=== PATIENT | male | born 1980 | race Two or more races ===

== ENCOUNTER 2018-06-02 13:46 | Emergency (ER) | payer SELFPAY ==
[2018-06-02] MEDS ORDERED: Ibuprofen TAB* 600 MG PO ONE (15:59)
[2018-06-02 16:11] VITALS: BP 140/92
--- NOTE | 2018-06-02 16:28 | ED ---
Upper Extremity Pain - HPI Summary HPI Summary: Patient is a 38-year-old male presenting to the ED after tripping and falling on his stairs at home and injuring his right elbow and the lateral part of his right thigh. He endorses some ecchymosis, but has full range of motion to the elbow into the leg. He also endorses some diffuse low back pain from picking up books yesterday which has improved since he has arrived in the ED. He declines x-ray on arrival. He denies any numbness or tingling. Denies any temperature changes. Good cap refill. He denies any other injuries and denies hitting his head. He takes no medications and has not taken any medications for improvement. - History of Current Complaint Chief Complaint: EDExtremityUpper Stated Complaint: RT ARM INJURY Time Seen by Provider: 06/02/18 14:11 Hx Obtained From: Patient Onset/Duration: Started Hours Ago Timing: Constant Severity Initially: Moderate Severity Currently: Mild Character: Aching Aggravating Factor(s): Movement, Lifting, Flexion, Extension Alleviating Factor(s): Rest, Ice Associated Signs & Symptoms: Positive: Bruising Related History: Dominant Hand Right - Risk Factors Non-Orthopedic Risk Factor: Negative DVT Risk Factors: Negative Septic Arthritis Risk Factor: Negative Compartment Syndrome Risk Factors: Pain - Allergies/Home Medications Allergies/Adverse Reactions: Allergies Allergy/AdvReac Type Severity Reaction Status Date / Time No Known Allergies Allergy Verified 06/02/18 13:55 PMH/Surg Hx/FS Hx/Imm Hx Previously Healthy: Yes Musculoskeletal History: Reports: Hx Back Problems Psychiatric History: Reports: Hx Depression, Hx Inpatient Treatment, Hx Community Mental Health Tx, Hx of Violent Episodes Against Others Denies: Hx Eating Disorder - Immunization History Hx Pertussis Vaccination: No Immunizations Up to Date: Yes Infectious Disease History: No Infectious Disease History: Denies: Traveled Outside the [place] in Last 30 Days - Social History Occupation: Unemployed Lives: Alone Alcohol Use: None Hx Substance Use: No Substance Use Type: Reports: None Hx Tobacco Use: No Smoking Status (MU): Never Smoked Tobacco Review of Systems Constitutional: Negative Negative: Fever, Chills, Fatigue, Skin Diaphoresis Negative: Palpitations, Chest Pain Negative: Shortness Of Breath, Cough Genitourinary: Negative Positive: no symptoms reported, see HPI Positive: Arthralgia - right elbow. Negative: Myalgia Positive: Bruising - contusion and abrasion to the R elbow and R thigh Neurological: Negative All Other Systems Reviewed And Are Negative: Yes Physical Exam Triage Information Reviewed: Yes Vital Signs On Initial Exam: Initial Vitals Temp Pulse Resp BP Pulse Ox 97.8 F 83 16 149/100 97 06/02/18 13:55 06/02/18 13:55 06/02/18 13:55 06/02/18 13:55 06/02/18 13:55 Vital Signs Reviewed: Yes Appearance: Positive: Well-Appearing, Well-Nourished Skin: Positive: Warm, Skin Color Reflects Adequate Perfusion, Other - right elbow contusion and R thigh contusion Head/Face: Positive: Normal Head/Face Inspection Eyes: Positive: MARION, Conjunctiva Clear Neck: Positive: Supple, No Lymphadenopathy Respiratory/Lung Sounds: Positive: Clear to Auscultation, Breath Sounds Present Cardiovascular: Positive: RRR, Pulses are Symmetrical in both Upper and Lower Extremities Musculoskeletal: Positive: Pain @ - right elbow Psychiatric: Positive: Normal, Affect/Mood Appropriate AVPU Assessment: Alert Diagnostics - Vital Signs Vital Signs Temp Pulse Resp BP Pulse Ox 06/02/18 16:11 97.8 F 82 16 140/92 97 06/02/18 13:55 97.8 F 83 16 149/100 97 - Laboratory Lab Statement: Any lab studies that have been ordered have been reviewed, and results considered in the medical decision making process. Course/Dx - Course Course Of Treatment: During the course of treatment, the patient is evaluated for right elbow contusion and abrasion as well as right thigh contusion. He declines an x-ray and states it is not fractured as he has full mobility. On physical examination, he is able to flex and extend as well as supinate and pronate at the elbow with minimal pain. He also has an abrasion to the right elbow which is clean and superficial. Ecchymosis noted to the right lateral portion of the thigh. He looks otherwise well. Ibuprofen 600mg given and also sent to pharmacy. He will be diagnosed with contusion. - Diagnoses Provider Diagnoses: Elbow contusion, Thigh contusion Discharge - Sign-Out/Discharge Documenting (check all that apply): Patient Departure - Discharge Plan Condition: Stable Disposition: HOME Prescriptions: Ibuprofen 600 mg PO TID PRN #30 tablet MDD 3 PRN Reason: Pain Patient Education Materials: Contusion in Adults (ED) Referrals: Jonathan Mccabe MD [Primary Care Provider] - Additional Instructions: Ice to the area x 24 hours, then heat to the area after 24 hours Ibuprofen 600mg three times daily You have a contusion to your elbow with an abrasion as well as a contusion on your leg both from the fall you had If symptoms worsen, you may return to the ED - Billing Disposition and Condition Condition: STABLE Disposition: Home
== END 2018-06-02 16:11 | disposition home or self-care (01) ==
LOC: ED 13:46
DX: S50.01XA Contusion of right elbow, initial encounter (principal); S70.11XA Contusion of right thigh, initial encounter; W10.9XXA Fall (on) (from) unspecified stairs and steps, initial encounter; Y92.009 Unspecified place in unspecified non-institutional (private) residence as the place of occurrence of the external cause
CPT/HCPCS: 99282; A9270-GY

== ENCOUNTER → 2018-06-25 11:30 | Emergency (ER) | payer SELFPAY ==
--- OUTSIDE RECORDS SUMMARY | 2018-06-25 11:43 | XMS REPORT ---
:1980 External Reference #:[id number] Author Organization [facility] Address [address] [place] [address] [place] [address] Phone [phone] Care Team Providers Name Role Phone Jonathan Mccabe III, MD Primary Care Physician Unavailable Payers Type Date Identification Numbers Payment Provider Subscriber Medicare Primary Policy Number: [id number] Medicare Martín Wu PayID: [id number] [facility] [address] [place] [address] Problems Date Description Provider Status Onset: 10/08/2015 Bipolar I disorder Cristo Thao M.D. Active Family History Date Family Member(s) Problem(s) Comments Father No Current Problems Mother Depression Siblings 1 Social History Type Date Description Comments Marital Status Single Occupation Unemployed Cigarette Use Never Smoked Cigarettes Smoking Patient has never smoked Recreational Drug Use Never Used Drugs Exercise Type/Frequency Exercises regularly Last [place] 10+ years ago Sexual Hx text Heterosexual Allergies, Adverse Reactions, Alerts Date Description Reaction Status Severity Comments 10/08/2015 NKDA active Medications Medication Date Status Form Strength Qnty SIG Indications Ordering Provider Aspirin Ec / Active Tablets DR 325mg prn Unknown 0000 Geodon 01/06/ Hx Capsules 40mg 60caps 1 by Cristo Thao, 07/28/ twice a M.D. 2015 day Abilify / Hx Tablets 5mg 1 by [email or web address].[email or web address] Unknown 0000 - mouth 07/12/ every day 2016 Oxcarbazepine / Hx Tablets 300mg 2 by F31.9 Unknown 0000 - mouth 07/28/ 2015 day. Divalproex / Hx Tablets ER 250mg Take Unknown Sodium ER 0000 - 24HR Three 11/12/ Tablets 2018 By Mouth AT Bedtime Ziprasidone HCL / Hx Capsules 80mg Tiago Hillman, 0000 - 2015 Ziprasidone HCL 00/ Hx Capsules 80mg 2 tabs Tiago Hillman, 0000 - daily 2016 Vraylar 00/ Hx Capsules 4.5mg take 1 Unknown 0000 - pill 2017 night Rexulti 00/ Hx Tablets 1mg one tab Unknown 0000 - once a 2017 Influenza,Unspe / Hx Injection Unknown cified 0000 - 2015 Medications Administered in Office Medication Date Status Form Strength Qnty SIG Indications Ordering Provider PPD Administered Injection Nurse Visit 7 C Immunizations CPT Code Status Date Vaccine Reaction Lot # [id number] Given 07/13/2017 Influenza Virus Vaccine, No immediate reaction [id number] Quadrivalent, Split, noted. Preservative Free [id number] Given 08/13/2012 Tetanus And Diptheria (Td) For Adult Use Preservative Free Vital Signs Date Vital Result Comment 05/29/2018 Height 65 inches 5'5" Weight 167.00 lb Heart Rate 85 /min BP Systolic Sitting 120 mmHg BP Diastolic Sitting 78 mmHg O2 % BldC Oximetry 97 % BMI (Body Mass Index) 27.8 kg/m2 11/12/2017 Weight 161.00 lb Heart Rate 67 /min BP Systolic Sitting 122 mmHg BP Diastolic Sitting 72 mmHg O2 % BldC Oximetry 98 % 07/13/2017 Height 65 inches 5'5" Weight 153.00 lb Heart Rate 63 /min BP Systolic Sitting 120 mmHg BP Diastolic Sitting 80 mmHg Body Temperature 97.9 F O2 % BldC Oximetry 98 % BMI (Body Mass Index) 25.5 kg/m2 01/23/2017 Weight 146.38 lb Heart Rate 69 /min BP Systolic 126 mmHg BP Diastolic 88 mmHg Body Temperature 97.9 F O2 % BldC Oximetry 98 % 12/28/2016 Weight 145.00 lb Heart Rate 76 /min BP Systolic Sitting 114 mmHg BP Diastolic Sitting 60 mmHg Respiratory Rate 16 /min O2 % BldC Oximetry 99 % 07/28/2016 Weight 149.00 lb Heart Rate 84 /min BP Systolic Sitting 116 mmHg BP Diastolic Sitting 62 mmHg Body Temperature 97.7 F O2 % BldC Oximetry 99 % 07/28/2016 Weight 141.00 lb 01/07/2016 Weight 148.00 lb Heart Rate 71 /min BP Systolic Sitting 118 mmHg BP Diastolic Sitting 76 mmHg Body Temperature 98.3 F 10/08/2015 Height 65 inches 5'5" Weight 152.00 lb Heart Rate 89 /min BP Systolic Sitting 127 mmHg BP Diastolic Sitting 77 mmHg Respiratory Rate 16 /min Body Temperature 98.4 F Pain Level 7 O2 % BldC Oximetry 98 % BMI (Body Mass Index) 25.3 kg/m2 Results Test Date Test Result H/L Range Note Quantiferon Gold TB 04/04/2017 M tuberculosis by Negative Negative 1 Quantiferon TB Ag minus Nil Result 0.26 IU/mL TB Mitogen minus Nil Result > 10.00 IU/mL TB Nil Result 0.04 IU/mL 2 Lipid Profile (Trig/Chol/HDL) 01/24/2017 Triglycerides 65 mg/dL 3 Cholesterol 144 mg/dL 4 HDL Cholesterol 48.6 mg/dL 5 LDL Cholesterol 82 mg/dL 6 Comp Metabolic Panel 01/24/2017 Sodium 137 mmol/L 133-145 Potassium 4.3 mmol/L 3.5-5.0 Chloride 102 mmol/L 101-111 Co2 Carbon Dioxide 29 mmol/L 22-32 Anion Gap 6 mmol/L 2-11 Glucose 84 mg/dL 70-100 Blood Urea Nitrogen 16 mg/dL 6-24 Creatinine 1.00 mg/dL 0.67-1.17 BUN/Creatinine Ratio 16.0 8-20 Calcium 9.5 mg/dL 8.6-10.3 Total Protein 6.9 g/dL 6.4-8.9 Albumin 4.6 g/dL 3.2-5.2 Globulin 2.3 g/dL 2-4 Albumin/Globulin Ratio 2.0 1-3 Total Bilirubin 0.40 mg/dL 0.2-1.0 Alkaline Phosphatase 45 U/L 34-104 Alt 53 U/L High 7-52 Ast 30 U/L 13-39 Egfr Non- 84.1 >60 Egfr 108.1 >60 7 CBC Auto Diff 01/24/2017 White Blood Count 7.1 10^3/uL 3.5-10.8 Red Blood Count 4.35 10^6/uL 4.0-5.4 Hemoglobin 14.1 g/dL 14.0-18.0 Hematocrit 42 % 42-52 Mean Corpuscular Volume 96 fL High 80-94 Mean Corpuscular Hemoglobin 32 pg High 27-31 Mean Corpuscular HGB Conc 34 g/dL 31-36 Red Cell Distribution Width 12 % 10.5-15 Platelet Count 256 10^3/uL 150-450 Mean Platelet Volume 9 um3 7.4-10.4 Abs Neutrophils 4.6 10^3/uL 1.5-7.7 Abs Lymphocytes 2.1 10^3/uL 1.0-4.8 Abs Monocytes 0.4 10^3/uL 0-0.8 Abs Eosinophils 0 10^3/uL 0-0.6 Abs Basophils 0 10^3/uL 0-0.2 Abs Nucleated RBC 0 10^3/uL Granulocyte % 64.5 % 38-83 Lymphocyte % 29.2 % 25-47 Monocyte % 5.5 % 1-9 Eosinophil % 0.4 % 0-6 Basophil % 0.4 % 0-2 Nucleated Red Blood Cells % 0.1 Laboratory test finding 01/24/2017 TSH (Thyroid Stim Horm) 1.90 mcIU/mL 0.34-5.60 8 Liver Function Panel 07/28/2016 Total Protein 7.3 g/dL 6.4-8.9 Albumin 4.7 g/dL 3.2-5.2 Globulin 2.6 g/dL 2-4 Albumin/Globulin Ratio 1.8 1-3 Total Bilirubin 0.40 mg/dL 0.2-1.0 Direct Bilirubin 0.10 mg/dL 0.03-0.18 Indirect Bilirubin 0.3 mg/dL 0.3-1.0 Alkaline Phosphatase 50 U/L 34-104 Alt 14 U/L 7-52 Ast 12 U/L Low 13-39 CBC Auto Diff 07/28/2016 White Blood Count 7.1 10^3/uL 3.5-10.8 Red Blood Count 4.30 10^6/uL 4.0-5.4 Hemoglobin 14.1 g/dL 14.0-18.0 Hematocrit 41 % Low 42-52 Mean Corpuscular Volume 96 fL High 80-94 Mean Corpuscular Hemoglobin 33 pg High 27-31 Mean Corpuscular HGB Conc 34 g/dL 31-36 Red Cell Distribution Width 13 % 10.5-15 Platelet Count 284 10^3/uL 150-450 Mean Platelet Volume 9 um3 7.4-10.4 Abs Neutrophils 4.8 10^3/uL 1.5-7.7 Abs Lymphocytes 1.8 10^3/uL 1.0-4.8 Abs Monocytes 0.4 10^3/uL 0-0.8 Abs Eosinophils 0.1 10^3/uL 0-0.6 Abs Basophils 0.1 10^3/uL 0-0.2 Abs Nucleated RBC 0 10^3/uL Granulocyte % 67.0 % 38-83 Lymphocyte % 25.3 % 25-47 Monocyte % 5.9 % 1-9 Eosinophil % 0.8 % 0-6 Basophil % 1.0 % 0-2 Nucleated Red Blood Cells % 0 Urinalysis Profile 11/09/2015 Urine Color Straw Urine Appearance Clear Urine Specific Mobile 1.009 Low 1.010-1.030 Urine pH 5.0 5-9 Urine Urobilinogen Negative Negative Urine Ketones Negative Negative Urine Protein Negative Negative Urine Leukocytes Negative Negative Urine Blood Negative Negative Urine Nitrite Negative Negative Urine Bilirubin Negative Negative Urine Glucose Negative Negative Basic Metabolic Panel 10/08/2015 Sodium 137 mmol/L 133-145 Potassium 4.4 mmol/L 3.5-5.0 Chloride 100 mmol/L Low 101-111 Co2 Carbon Dioxide 30 mmol/L 22-32 Anion Gap 7 mmol/L 2-11 Glucose 94 mg/dL 70-100 Blood Urea Nitrogen 14 mg/dL 6-24 Creatinine 0.99 mg/dL 0.67-1.17 BUN/Creatinine Ratio 14.1 8-20 Calcium 10.0 mg/dL 8.6-10.3 Egfr Non- 85.5 >60 Egfr 110.0 >60 9 GC/Chlamydia Amplified Rna 10/08/2015 Chlamydia trachomatis Rna Negative Negative Neisseria gonorrhoeae (GC) Rna Negative Negative CBC Auto Diff 10/08/2015 White Blood Count 9.2 10^3/uL 3.5-10.8 Red Blood Count 4.52 10^6/uL 4.0-5.4 Hemoglobin 14.8 g/dL 14.0-18.0 Hematocrit 43 % 42-52 Mean Corpuscular Volume 94 fL 80-94 Mean Corpuscular Hemoglobin 33 pg High 27-31 Mean Corpuscular HGB Conc 35 g/dL 31-36 Red Cell Distribution Width 12 % 10.5-15 Platelet Count 296 10^3/uL 150-450 Mean Platelet Volume 8 um3 7.4-10.4 Abs Neutrophils 7.4 10^3/uL 1.5-7.7 Abs Lymphocytes 1.4 10^3/uL 1.0-4.8 Abs Monocytes 0.3 10^3/uL 0-0.8 Abs Eosinophils 0 10^3/uL 0-0.6 Abs Basophils 0.1 10^3/uL 0-0.2 Abs Nucleated RBC 0 10^3/uL Granulocyte % 80.1 % 38-83 Lymphocyte % 14.9 % Low 25-47 Monocyte % 3.8 % 1-9 Eosinophil % 0.5 % 0-6 Basophil % 0.7 % 0-2 Nucleated Red Blood Cells % 0 Laboratory test finding 10/08/2015 TSH (Thyroid Stim 1.25 ?IU/mL 0.34- 5.60 Horm) HIV 1/2 AB Evaluation 10/08/2015 HIV 1 2 Antibody Nonreactive Nonreactive 10 Ua Routine 10/08/2015 Ua Specific Mobile 1.010 Ua PH 5 Ua Color light yellow Ua Appera clear Ua WBC negative Ua Protein negative Ua Glucose normal Ua Ketones negative Ua Bilirubin negative Ua Urobilinogen negative Ua Nitrite negative Ua Occult Blood trace 1 No interferon-gamma response to M. tuberculosis antigens was detected. Infection with M. tuberculosis is unlikely. A negative result alone does not exclude infection with M. tuberculosis. For detailed information regarding test interpretation see: [email or web address] 2 Test Performed by: [address] [address] 3 Desirable <150 Borderline high 150-199 High 200-499 Very High >500 4 Desirable <200 Borderline high 200-239 High >239 5 Low <40 Desirable: 40-60 High: >60 6 Desirable: <100 mg/dL Near Optimal: 100-129 mg/dL Borderline High: 130-159 mg/dL High: 160-189 mg/dL Very High: >189 mg/dL 7 Because ethnic data is not always readily available, this report includes an eGFR for both -Americans and non- Americans. The National Kidney Disease Education Program (NKDEP) does not endorse the use of the MDRD equation for patients that are not between the ages of 18 and 70, are , have extremes of body size, muscle mass, or nutritional status, or are non- or non-. According to the National Kidney Foundation, irrespective of diagnosis, the stage of the disease is based on the level of kidney function: Stage Description GFR(mL/min/1.73 m(2)) 1 Kidney damage with normal or decreased GFR 90 2 Kidney damage with mild decrease in GFR 60-89 3 Moderate decrease in GFR 30-59 4 Severe decrease in GFR 15-29 5 Kidney failure <15 (or dialysis) 8 FASTING 9 Because ethnic data is not always readily available, this report includes an eGFR for both -Americans and non- Americans. The National Kidney Disease Education Program (NKDEP) does not endorse the use of the MDRD equation for patients that are not between the ages of 18 and 70, are , have extremes of body size, muscle mass, or nutritional status, or are non- or non-. According to the National Kidney Foundation, irrespective of diagnosis, the stage of the disease is based on the level of kidney function: Stage Description GFR(mL/min/1.73 m(2)) 1 Kidney damage with normal or decreased GFR 90 2 Kidney damage with mild decrease in GFR 60-89 3 Moderate decrease in GFR 30-59 4 Severe decrease in GFR 15-29 5 Kidney failure <15 (or dialysis) 10 It is recognized that currently available assays for the detection of antibodies to HIV-1 and/or HIV-2 may not detect all infected individuals. HIV antibodies may be undetectable in some stages of the infection and in some clinical conditions. The performance of this assay has not been established for populations of infants or children. Assayed by Chemiluminescence Microparticle Immunoassay on the Siemens Advia Centaur CP. Values obtained with different methods or kits cannot be used interchangeably.The diagnostic specificity of the ADVIA Centaur 1/O/2 Enhanced assay in the low risk population was 99.90% (6052/6058) with a 95% confidence interval of 99.78 to 99.96%. Procedures Date CPT Code Description Status 11/14/2017 03106 Removal Skin Tags Up To 15 Completed 01/15/2014 03103 EKG, Interpretation Only Completed Encounters Type Date Location Provider CPT E/M Dx Office Visit 11/14/2017 3:00p [facility] [place] [address] D22.72 D22.61 L91.8 R20.8 L53.8 Z78.9 Office Visit 11/12/2017 11:40a [facility] Internal Medicine Jonathan Mccabe, 95385 L98.9 - [place] Gil Office Visit 07/13/2017 11:20a [facility] Internal Medicine Jonathan Mccabe, 12991 H93.13 - Catalino Gil Z23 Office Visit 01/23/2017 2:40p [facility] Internal Medicine Jonathan Mccabe, 60333 F31.9 - [place] Gil Z13.220 Z13.1 R53.83 Office Visit 12/28/2016 3:40p [facility] Internal Medicine Jonathan Mccabe, 79607 Z02.89 - [place] Gil F31.9 Office Visit 07/28/2016 11:00a [facility] Internal Medicine Cristo Thao M.D. 08323 K06.8 - [place] F31.9 Office Visit 01/07/2016 1:00p [facility] Internal Medicine Cristo Thao M.D. 81246 R30.0 - [place] Office Visit 10/08/2015 1:00p [facility] Internal Medicine Cristo Thao M.D. 77607 R30.0 - [place] R41.840 F31.9 Plan of Care 05/29/2018 - Jonathan Mccabe M.D.L98.9 Disorder of the skin and subcutaneous tissue, unspecifiedComments:Pt notes "circles" under eyes, more prominent pores on face; facial skin texture and periorbital appearacne unremarkable on examR20.9 Unspecified disturbances of skin sensationComments:(+) c/o chronic "buzzing" sensation in lower legs, forearms ? since Aug 2010, and similar buzzing toa lesser intensity felt from the head down several times a day lasting about a minute since 2005. Skin appearance and gross sensation normal except pt reports a subjective "tingly" quality to soft touch over the ankles nnuvuE19.609 Pain in unspecified limbComments:(+) c/o random sudden sharp pains over both lower arms since January of 2018, "tingling" in both ankles. No focal joint pain sx, and no joint swelling, redness, or tenderness on exam. No foream or lowerleg tenderness, skin changes. No muscle wekaness qdpsbZ48.2 Other acquired deformity of headComments:Pt reports noting a ? change in shape of his skull ? since 2008, occ ? "pressure" sensations over back of head around once a month lasting all day since 2008. No past head injuries reported. No grossdeformities noted on exam, but pt's occipital area flatter in contour. No scalp tenderness.F31.9 Bipolar disorder, unspecifiedComments:Previously on drug Rx and followed by psych; off drug Rx now
--- OUTSIDE RECORDS SUMMARY | 2018-06-25 11:43 | XMS REPORT ---
:1980 External Reference #:[id number] Author Organization [employer] Address [address] [place] [address] [place] [address] Phone [phone] Care Team Providers Name Role Phone Jonathan Mccabe III, MD Primary Care Physician Unavailable Payers Type Date Identification Numbers Payment Provider Subscriber Medicare Primary Expires: Policy Number: Medicare Martín Wu 2018 [id number] PayID: [id number] [place] [address] Problems Date Description Provider Status Onset: 10/08/2015 Bipolar I disorder Cristo Thao M.D. Active Family History Date Family Member(s) Problem(s) Comments Father No Current Problems Mother Depression Siblings 1 Social History Type Date Description Comments Marital Status Single Occupation Unemployed Cigarette Use Never Smoked Cigarettes Smoking Patient has never smoked Recreational Drug Use Never Used Drugs Exercise Type/Frequency Exercises regularly Last [place] 10+ years ago Sexual Hx text Heterosexual Allergies, Adverse Reactions, Alerts Date Description Reaction Status Severity Comments 10/08/2015 NKDA active Medications Medication Date Status Form Strength Qnty SIG Indications Ordering Provider Aspirin Ec / Active Tablets DR 325mg prn Unknown 0000 Ibu / Active Tablets 600mg take one Unknown 0000 tablet by mouth three times a day as needed Geodon 01/06/ Hx Capsules 40mg 60caps 1 by Cristo Thao, 07/28/ twice a M.D. 2015 Abilify / Hx Tablets 5mg 1 by F31.Agnes Unknown 0000 - mouth 07/12/ every day 2016 Oxcarbazepine / Hx Tablets 300mg 2 by F31.9 Unknown 0000 - mouth 07/28/ 2015 day. Divalproex / Hx Tablets ER 250mg Take Unknown Sodium ER 0000 - 24HR Three 2018 By Mouth AT Bedtime Ziprasidone HCL 00/ Hx Capsules 80mg Tiago Hillman, 0000 - MD 2015 Ziprasidone HCL / Hx Capsules 80mg 2 tabs Tiago Hillman, 0000 - daily 2016 Vraylar / Hx Capsules 4.5mg take 1 Unknown 0000 - pill 2017 night Rexulti / Hx Tablets 1mg one tab Unknown 0000 - once a 2018 Influenza,Unspe / Hx Injection Unknown cified 0000 - 2015 Medications Administered in Office Medication Date Status Form Strength Qnty SIG Indications Ordering Provider PPD Administered Injection Nurse Visit 7 C Immunizations CPT Code Status Date Vaccine Reaction Lot # 30173 Given 07/13/2017 Influenza Virus Vaccine, No immediate reaction [id number] Quadrivalent, Split, noted. Preservative Free 05912 Given 08/13/2012 Tetanus And Diptheria (Td) For Adult Use Preservative Free Vital Signs Date Vital Result Comment 06/04/2018 Height 65 inches 5'5" Weight 166.00 lb Heart Rate 90 /min BP Systolic Sitting 120 mmHg BP Diastolic Sitting 95 mmHg Body Temperature 98.3 F Pain Level 7 lower back when standing O2 % BldC Oximetry 98 % BMI (Body Mass Index) 27.6 kg/m2 05/29/2018 Height 65 inches 5'5" Weight 167.00 [...] Color Straw Urine Appearance Clear Urine Specific [place] 1.009 Low 1.010-1.030 Urine pH 5.0 5-9 [...] Nonreactive 10 Ua Routine 10/08/2015 Ua Specific [place] 1.010 Ua PH 5 Ua Color light [...] For detailed information regarding test interpretation see: www.[facility]/test-catalog/ Clinical+and+Interpretive/97774 2 Test Performed by: [facility] [place] - [address] [address] 3 Desirable <150 Borderline high 150-199 High [...] Procedures Date CPT Code Description Status 11/14/2017 14534 Removal Skin Tags Up To 15 Completed 01/15/2014 04393 EKG, Interpretation Only Completed Encounters Type Date Location Provider CPT E/M Dx Office Visit 06/03/2018 1:10p [facility] [place] [address] L70.0 Office Visit 11/14/2017 3:00p [facility] [place] [address] D22.72 D22.61 L91.8 R20.8 L53.8 Z78.9 Office Visit 11/12/2017 11:40a [facility] Jonathan Mccabe, 82228 L98.9 - [place] Office Visit 07/13/2017 11:20a [facility] Jonathan Mccabe, 08272 H93.13 - [place] Gil Z23 Office Visit 01/23/2017 2:40p [facility] Jonathan Mccabe, 67870 F31.9 - [place] Z13.220 Z13.1 R53.83 Office Visit 12/28/2016 3:40p [facility] Jonathan Mccabe, 49749 Z02.89 - [place] F31.9 Office Visit 07/28/2016 11:00a [facility] Cristo Thao M.D. 70333 K06.8 - [place] F31.9 Office Visit 01/07/2016 1:00p [facility] Cristo Thao M.D. 81213 R30.0 - [place] Office Visit 10/08/2015 1:00p [facility] Cristo Thao M.D. 67139 R30.0 - [place] R41.840 F31.9 Plan of Care 06/04/2018 - Jonathan Mccabe M.D.S40.021A Contusion of right upper arm, initial encounterComments:Fall with bruise to R upper arm; No elbow pain, no palpable hematoma.S80.11xA Contusion of right lower leg, initial encounterComments:(+) smaller bruise over the R lateral thigh; no other leg pains, no palpable jkjzqotkF55.5 Low back painComments:Recurrent low back aches after a lifting incident 3 days ago. Sx not aggravated by the fall and no neuromuscular deficits
--- OUTSIDE RECORDS SUMMARY | 2018-06-25 11:43 | XMS REPORT ---
:1980 External Reference #:[id number] Author Organization [employer] Address [address] [facility] [address] [facility] [address] [place] [address] [place] [address] Phone [phone] Care Team Providers Name Role Phone Jonathan Mccabe III, MD Primary Care Physician Unavailable Payers Type Date Identification Numbers Payment Provider Subscriber Medicare Primary Policy Number: [id number] Medicare Martín Wu PayID: [id number] [facility] [address] [place] [address] Problems Date Description Provider Status Onset: 10/08/2015 Bipolar I disorder Cristo Thao M.D. Active Family History Date Family Member(s) Problem(s) Comments Father No Current Problems Mother Depression Siblings 1 Social History Type Date Description Comments Marital Status Single Occupation Unemployed Cigarette Use Never Smoked Cigarettes Smoking Patient has never smoked Recreational Drug Use Never Used Drugs Exercise Type/Frequency Exercises regularly Last [place] 10+ years ago Sexual Hx text Heterosexual [...] Code Status Date Vaccine Reaction Lot # 66738 Given 07/13/2017 Influenza Virus Vaccine, No immediate reaction [id number] Quadrivalent, Split, noted. Preservative Free 13000 Given 08/13/2012 Tetanus And Diptheria (Td) For [...] Color Straw Urine Appearance Clear Urine Specific [place] 1.009 Low 1.010-1.030 Urine pH 5.0 5-9 [...] Nonreactive 10 Ua Routine 10/08/2015 Ua Specific [place] 1.010 Ua PH 5 Ua Color light [...] For detailed information regarding test interpretation see: www.[facility]/test-catalog/ Clinical+and+Interpretive/50102 2 Test Performed by: [address] [address] 3 Desirable <150 Borderline high 150-199 High [...] Procedures Date CPT Code Description Status 11/14/2017 82577 Removal Skin Tags Up To 15 Completed 01/15/2014 10544 EKG, Interpretation Only Completed Encounters Type Date Location Provider CPT E/M Dx Office Visit 11/14/2017 3:00p [facility] [place] [address] D22.72 D22.61 L91.8 R20.8 L53.8 Z78.9 Office Visit 11/12/2017 11:40a [facility] Jonathan Mccabe, 70680 L98.9 - [place] Office Visit 07/13/2017 11:20a [facility] Jonathan Mccabe, 50539 H93.13 - [place] Z23 Office Visit 01/23/2017 2:40p [facility] Jonathan Mccabe, 82735 F31.9 - [place] Z13.220 Z13.1 R53.83 Office Visit 12/28/2016 3:40p [facility] Jonathan Mccabe, 56437 Z02.89 - [place] F31.9 Office Visit 07/28/2016 11:00a [facility] Cristo Thao M.D. 58326 K06.8 - [place] F31.9 Office Visit 01/07/2016 1:00p [facility] Cristo Thao M.D. 28533 R30.0 - [place] Office Visit 10/08/2015 1:00p [facility] Cristo Thao M.D. 00690 R30.0 - [place] R41.840 F31.9 Plan of Care 05/29/2018 - [...] quality to soft touch over the ankles jffmkY42.609 Pain in unspecified limbComments:(+) c/o random sudden sharp pains over both lower arms since January of 2018, "tingling" in both ankles. No focal joint pain sx, and no joint swelling, redness, or tenderness on exam. No foream or lowerleg tenderness, skin changes. No muscle wekaness ntlgcV01.2 Other acquired deformity of headComments:Pt reports noting [...]
--- OUTSIDE RECORDS SUMMARY | 2018-06-25 11:43 | XMS REPORT ---
:1980 External Reference #:[id number] Author Organization [employer] Address [address] [place] [address] Phone [phone] Care Team Providers Name Role Phone Jonathan Mccabe III, MD Primary Care Physician Unavailable Payers Type Date Identification Numbers Payment Provider Subscriber Medicare Primary Policy Number: [id number] Medicare Martín Wu PayID: [id number] [facility] [address] [place] [address] Problems Date Description Provider Status Onset: 10/08/2015 Bipolar I disorder Cristo Thao M.D. Active Family History Date Family Member(s) Problem(s) Comments Father No Current Problems Mother Depression Siblings 1 Social History Type Date Description Comments Marital Status Single Occupation Unemployed Cigarette Use Never Smoked Cigarettes Smoking Patient has never smoked Recreational Drug Use Never Used Drugs Exercise Type/Frequency Exercises regularly Last [place] 10+ years ago Sexual Hx text Heterosexual [...] Code Status Date Vaccine Reaction Lot # [id number] Given 07/13/2017 Influenza Virus Vaccine, No immediate reaction [id number] Quadrivalent, Split, noted. Preservative Free 63944 Given 08/13/2012 Tetanus And Diptheria (Td) For [...] Color Straw Urine Appearance Clear Urine Specific [place] 1.009 Low 1.010-1.030 Urine pH 5.0 5-9 [...] Nonreactive 10 Ua Routine 10/08/2015 Ua Specific [place] 1.010 Ua PH 5 Ua Color light [...] For detailed information regarding test interpretation see: www.[employer]/test-catalog/ Clinical+and+Interpretive/11131 2 Test Performed by: [address] [address] 3 Desirable <150 Borderline high 150-199 High [...] Procedures Date CPT Code Description Status 11/14/2017 58504 Removal Skin Tags Up To 15 Completed 01/15/2014 83319 EKG, Interpretation Only Completed Encounters Type Date Location Provider CPT E/M Dx Office Visit 11/14/2017 3:00p [facility] [place] [address] D22.72 D22.61 L91.8 R20.8 L53.8 Z78.9 Office Visit 11/12/2017 11:40a [facility] Jonathan Mccabe, 47960 L98.9 - [place] Office Visit 07/13/2017 11:20a [facility] Jonathan Mccabe, 04357 H93.13 - [place] Gil Z23 Office Visit 01/23/2017 2:40p [facility] Jonathan Mccabe, 09356 F31.9 - [place] Z13.220 Z13.1 R53.83 Office Visit 12/28/2016 3:40p [facility] Jonathan Mccabe, 01753 Z02.89 - [place] F31.9 Office Visit 07/28/2016 11:00a [facility] Cristo Thao M.D. 68371 K06.8 - [place] F31.9 Office Visit 01/07/2016 1:00p [facility] Cristo Thao M.D. 12542 R30.0 - [place] Office Visit 10/08/2015 1:00p [facility] Cristo Thao M.D. 83100 R30.0 - [place] R41.840 F31.9 Plan of Care 05/29/2018 - [...] quality to soft touch over the ankles fncghI94.609 Pain in unspecified limbComments:(+) c/o random sudden sharp pains over both lower arms since January of 2018, "tingling" in both ankles. No focal joint pain sx, and no joint swelling, redness, or tenderness on exam. No foream or lowerleg tenderness, skin changes. No muscle wekaness juxcoI35.2 Other acquired deformity of headComments:Pt reports noting a ? change in shape of his skull ? since 2008, occ ? "pressure" sensations over back of head around once a month lasting all day since 2008. No past head injuries reported. No grossdeformities noted on exam, but pt's occipital area flatter in contour. No scalp tenderness.
--- NOTE | 2018-06-25 12:30 | ED ---
Complex/Multi-Sys Presentation - HPI Summary HPI Summary: Patient is a 38-year-old male who presents emergency department for numerous complaints. Patient states he came into the emergency department today to be referred to GI, orthopedics, and pulmonology for chronic ongoing issues. Patient states he did not see his family doctor because they would not be able to see him soon enough so he presents today. Patient complains of having acid reflux for a while now. He complains of epigastric burning that radiates into his esophagus. He notes symptoms are worse when he accepted lies down. Pt. feels acid is eroding his teeth. He has not tried taking any medications for this. He denies drug or alcohol use. He notes he is taking ibuprofen for a right elbow injury. Pt. also feels as though he is not absorbing food as he should he feels he has a bowel movement quickly after eating. Patient otherwise denies fever, chills, chest pain, shortness of breath, abdominal pain, vomiting or diarrhea. Patient also notes ongoing right wrist pain times several years. Patient also complains of feeling as though he cannot breathe as well as he once did as a child. To note, pt. has a history of psychiatric issues and has been admitted numerous times for psychosis and paranoia. Patient is prescribed antipsychotics but states he stopped taking medications months-years ago. Currently unemployed stating he cannot work with his MH issues. Symptoms are mild in severity. - History Of Current Complaint Chief Complaint: EDGeneral Time Seen by Provider: 06/25/18 11:52 Hx Obtained From: Patient - Allergies/Home Medications Allergies/Adverse Reactions: Allergies Allergy/AdvReac Type Severity Reaction Status Date / Time No Known Allergies Allergy Verified 06/25/18 11:37 PMH/Surg Hx/FS Hx/Imm Hx Previously Healthy: Yes Musculoskeletal History: Reports: Hx Back Problems Psychiatric History: Reports: Hx Depression, Hx Inpatient Treatment, Hx Community Mental Health Tx, Hx of Violent Episodes Against Others Denies: Hx Eating Disorder Infectious Disease History: No Infectious Disease History: Denies: Traveled Outside the [place] in Last 30 Days - Family History Known Family History: Positive: Non-Contributory - Social History Occupation: Unemployed Lives: With Family Alcohol Use: None Hx Substance Use: No Substance Use Type: Reports: None Hx Tobacco Use: No Smoking Status (MU): Never Smoked Tobacco Review of Systems Constitutional: Negative Negative: Fever, Chills Eyes: Negative ENT: Negative Cardiovascular: Negative Negative: Palpitations, Chest Pain Respiratory: Negative Negative: Shortness Of Breath, Cough Positive: Other - epigastric burning. Negative: Abdominal Pain, Vomiting, Diarrhea, Nausea Genitourinary: Negative Positive: Other - Ongoing right wrist pain Skin: Negative Neurological: Negative All Other Systems Reviewed And Are Negative: Yes Physical Exam Triage Information Reviewed: Yes Vital Signs On Initial Exam: Initial Vitals Temp Pulse Resp BP Pulse Ox 98.6 F 85 16 177/98 99 06/25/18 11:33 06/25/18 11:33 06/25/18 11:33 06/25/18 11:33 06/25/18 11:33 Vital Signs Reviewed: Yes Appearance: Positive: Well-Appearing - Pt. sitting on bed in NAD. Skin: Positive: Warm, Dry Head/Face: Positive: Normal Head/Face Inspection Eyes: Positive: Normal, EOMI ENT: Positive: Pharynx normal, TMs normal Dental: Positive: Other - No obvoius dental caries or abscess. Mild injection to gums. Neck: Positive: Supple. Negative: Nuchal Rigidity Respiratory/Lung Sounds: Positive: Clear to Auscultation, Breath Sounds Present. Negative: Rales, Rhonchi, Wheezes Cardiovascular: Positive: Normal, RRR Abdomen Description: Positive: Nontender, Soft Musculoskeletal: Positive: Normal Neurological: Positive: Normal, CN Intact II-III Psychiatric: Positive: Anxious Diagnostics - Vital Signs Vital Signs Temp Pulse Resp BP Pulse Ox 06/25/18 11:33 98.6 F 85 16 177/98 99 - Laboratory Lab Statement: Any lab studies that have been ordered have been reviewed, and results considered in the medical decision making process. Complex Multi-Symp Course/Dx Course Of Treatment: Patient presenting with numerous complaints. He is afebrile with stable vital signs. He has a benign exam. He does have a history of psychosis but does not appear to need a MHE today. Patient demanding to be referred to GI, pulmonology and orthopedics for ongoing issues. Advised patient that specialist referrals need to be done through his primary care physician. He was given information for his requested specialties and can call them on his own for follow-up. Patient on Protonix for acid reflux. Advised to avoid foods high in acid, spice, alcohol, caffeine. Strongly advised close family doctor today for close follow-up appointment. To return to the ER symptoms change or worsen. Patient understands and agrees with plan. - Diagnoses Provider Diagnoses: Acid reflux Discharge - Sign-Out/Discharge Documenting (check all that apply): Patient Departure - Discharge Plan Condition: Good Disposition: HOME Prescriptions: Pantoprazole Sodium [Protonix] 20 mg PO DAILY #30 tablet. Patient Education Materials: Diet for Stomach Ulcers and Gastritis (ED), Gastroesophageal Reflux Disease (ED) Referrals: Angelique Dean MD [Medical Doctor] - Tanvi Eric MD [Medical Doctor] - Yoel To MD [Medical Doctor] - Jonathan Mccabe MD [Primary Care Provider] - Additional Instructions: Call your PCP today to schedule a close follow up appointment Take protonix as directed for stomach acid Avoid foods high in acid, spice, alcohol, caffeine Return to ER if symptoms change or worsen - Billing Disposition and Condition Condition: GOOD Disposition: Home
[2018-06-25 13:10] VITALS: BP 167/90
== END | disposition home or self-care (01) ==
LOC: ED 11:30
DX: K21.9 Gastro-esophageal reflux disease without esophagitis (principal); F32.9 Major depressive disorder, single episode, unspecified
CPT/HCPCS: 99282

== ENCOUNTER 2018-12-04 21:37 | Emergency (ER) | payer SELFPAY ==
--- OUTSIDE RECORDS SUMMARY | 2018-12-04 21:57 | XMS REPORT | Continuity of Care Document ---
:1980 External Reference #:[id number] Author Name Tammi Betancourt Care Team Providers Name Role Phone Jonathan Mccabe III, MD Primary Care Physician Unavailable Payers Date Identification Numbers Payment Provider Subscriber Expires: 2018 Policy Number: [id number] Medicare Martín Wu PayID: [id number] [address] [place] [address] Advance Directives Description No Information Available Problems Date Description Provider Status Onset: 10/08/2015 Bipolar I disorder Cristo Thao M.D. Active Onset: 07/01/2018 Gastroesophageal reflux disease Winnie Donato NP Active Note: pantoprazole started 06/25/18 by the ER Onset: 07/01/2018 Anxiety state Winnie Donato NP Active Onset: 04/09/2013 Abnormal liver function Yoel To MD Active Note: ALT first up this date at 175 then normal and 191 on 08/20/18 - all alk phos levels in a tight pattern 50 to 74; Family History Date Family Member(s) Observation Comments Father No Current Problems Mother Depression Siblings 1 Social History Type Date Description Comments Sex Unknown Marital Status Single Occupation Unemployed Tobacco Use Start: Unknown Never Smoked Cigarettes Smoking Status Reviewed: 11/12/18 Never Smoked Cigarettes ETOH Use Denies alcohol use Tobacco Use Start: Unknown Patient has never smoked Recreational Drug Use Never Used Drugs Exercise Type/Frequency Exercises regularly Last [place] 10+ years ago Allergies, Adverse Reactions, Alerts Description No Known Drug Allergies Medications Medication Date Status Form Strength Qnty SIG Indications Ordering Provider Diclofenac 06/27/ Active Gel 1% 100gm apply 4 M25.531 Karin Sodium 2018 times Pantoja, daily as M.D. needed for pain Aspirin Ec 05/21/ Active Tablets DR 325mg prn Unknown 2017 Pantoprazole / Active Tablets DR 20mg 30tabs 1 by Winnie Sodium 0000 mouth KYM Donato every day Vitamin C / Active Capsules 500-400mg- 1 by Unknown 0000 Unit mouth W/Vitamin E twice a day Multivit / Active Liquid daily Unknown 0000 Tamsulosin HCL / Active Capsules 0.4mg Unknown 0000 Nutra-Support / Active Capsules Unknown Bone 0000 Biotin / Active Capsules 1mg Unknown 0000 Systane / Active Solution 0.4-0.3% apply Unknown 0000 twice daily as needed for dry eyes Gas-X / Active Chewtabs 80mg Unknown 0000 Geodon 01/06/ Hx Capsules 40mg 60caps 1 by Cristo 2016 - mouth [place], 07/28/ twice a M.D. 2015 day Abilify / Hx Tablets 5mg 1 by F31.9 Unknown 0000 - mouth 2016 day Oxcarbazepine / Hx Tablets 300mg 2 by F31.9 Unknown 0000 - mouth 2015 day. Divalproex / Hx Tablets ER 250mg Take Unknown Sodium ER 0000 - 24HR Three 11/12/ Tablets 2018 By Mouth AT Bedtime Ziprasidone HCL / Hx Capsules 80mg Tiago Hillman 0000 - 2015 Ziprasidone HCL / Hx Capsules 80mg 2 tabs Tiago Hillman, 0000 - daily 2016 Vraylar / Hx Capsules 4.5mg take 1 Unknown 0000 - pill 2017 night Rexulti / Hx Tablets 1mg one tab Unknown 0000 - once a 2018 Ibu / Hx Tablets 600mg take one Unknown 0000 - tablet 07/07/ by mouth 2017 three times a day as needed Influenza,Unspe / Hx Injection Unknown cified 0000 - 2015 Medications Administered in Office Medication Date Status Form Strength Qnty SIG Indications Ordering Provider PPD Administered Injection Nurse Visit 7 C Immunizations CPT Code Status Date Vaccine Reaction Lot # [id number] Given 07/13/2017 Influenza Virus Vaccine, No immediate reaction [id number] Quadrivalent, Split, noted. Preservative Free [id number] Given 08/13/2012 Tetanus And Diptheria (Td) For Adult Use Preservative Free Vital Signs Date Vital Result Comment 11/12/2018 3:38pm Height 65 inches 5'5" Weight 167.00 lb Heart Rate 84 /min BP Systolic Sitting 138 mmHg BP Diastolic Sitting 75 mmHg O2 % BldC Oximetry 96 % BMI (Body Mass Index) 27.8 kg/m2 11/01/2018 1:18pm Height 65 inches 5'5" Weight 168.25 lb Heart Rate 66 /min BP Systolic Sitting 121 mmHg BP Diastolic Sitting 80 mmHg Respiratory Rate 14 /min Pain Level 3 BMI (Body Mass Index) 28.0 kg/m2 10/29/2018 1:29pm Height 65 inches 5'5" Weight 166.00 lb Heart Rate 66 /min BP Systolic 119 mmHg BP Diastolic 70 mmHg Respiratory Rate 18 /min Body Temperature 98.0 F O2 % BldC Oximetry 98 % BMI (Body Mass Index) 27.6 kg/m2 10/01/2018 1:11pm Height 65 inches 5'5" Weight 165.38 lb Heart Rate 70 /min BP Systolic Sitting 126 mmHg BP Diastolic Sitting 80 mmHg O2 % BldC Oximetry 98 % BMI (Body Mass Index) 27.5 kg/m2 09/16/2018 3:05pm Height 65 inches 5'5" Weight 165.50 lb Heart Rate 63 /min BP Systolic 120 mmHg BP Diastolic 72 mmHg Respiratory Rate 16 /min Body Temperature 96.2 F O2 % BldC Oximetry 98 % BMI (Body Mass Index) 27.5 kg/m2 08/20/2018 10:16am Height 65 inches 5'5" Weight 172.00 lb Heart Rate 70 /min BP Systolic Sitting 120 mmHg BP Diastolic Sitting 84 mmHg O2 % BldC Oximetry 98 % BMI (Body Mass Index) 28.6 kg/m2 08/14/2018 11:36am Height 65 inches 5'5" Weight 171.00 lb Heart Rate 72 /min BP Systolic Sitting 136 mmHg BP Diastolic Sitting 78 mmHg O2 % BldC Oximetry 98 % BMI (Body Mass Index) 28.5 kg/m2 07/31/2018 9:25am Height 65 inches 5'5" Weight 166.00 lb Heart Rate 71 /min BP Systolic Sitting 112 mmHg regular adult cuff left arm BP Diastolic Sitting 65 mmHg regular adult cuff left arm O2 % BldC Oximetry 98 % at rest on roomo air BMI (Body Mass Index) 27.6 kg/m2 07/17/2018 3:32pm Height 65 inches 5'5" Weight 169.00 lb Heart Rate 83 /min BP Systolic Sitting 138 mmHg BP Diastolic Sitting 80 mmHg Body Temperature 98.7 F O2 % BldC Oximetry 98 % BMI (Body Mass Index) 28.1 kg/m2 07/08/2018 1:58pm Height 65 inches 5'5" Weight 170.00 lb Heart Rate 80 /min BP Systolic Sitting 150 mmHg BP Diastolic Sitting 98 mmHg Body Temperature 98.9 F O2 % BldC Oximetry 97 % BMI (Body Mass Index) 28.3 kg/m2 07/01/2018 11:02am Height 65 inches 5'5" Weight 170.38 lb Heart Rate 83 /min BP Systolic 134 mmHg BP Diastolic 93 mmHg Respiratory Rate 18 /min Pain Level 0 O2 % BldC Oximetry 95 % BMI (Body Mass Index) 28.3 kg/m2 06/27/2018 1:59pm Height 65 inches 5'5" Weight 166.00 lb Heart Rate 104 /min BP Systolic 142 mmHg BP Diastolic 74 mmHg Respiratory Rate 20 /min Body Temperature 98.0 F BMI (Body Mass Index) 27.6 kg/m2 06/04/2018 11:40am Height 65 inches 5'5" Weight 166.00 lb Heart Rate 90 /min BP Systolic Sitting 120 mmHg BP Diastolic Sitting 95 mmHg Body Temperature 98.3 F Pain Level 7 lower back when standing O2 % BldC Oximetry 98 % BMI (Body Mass Index) 27.6 kg/m2 05/29/2018 10:52am Height 65 inches 5'5" Weight 167.00 lb Heart Rate 85 /min BP Systolic Sitting 120 mmHg BP Diastolic Sitting 78 mmHg O2 % BldC Oximetry 97 % BMI (Body Mass Index) 27.8 kg/m2 11/12/2017 11:56am Weight 161.00 lb Heart Rate 67 /min BP Systolic Sitting 122 mmHg BP Diastolic Sitting 72 mmHg O2 % BldC Oximetry 98 % 07/13/2017 12:23pm Height 65 inches 5'5" Weight 153.00 lb Heart Rate 63 /min BP Systolic Sitting 120 mmHg BP Diastolic Sitting 80 mmHg Body Temperature 97.9 F O2 % BldC Oximetry 98 % BMI (Body Mass Index) 25.5 kg/m2 01/23/2017 2:54pm Weight 146.38 lb Heart Rate 69 /min BP Systolic 126 mmHg BP Diastolic 88 mmHg Body Temperature 97.9 F O2 % BldC Oximetry 98 % 12/28/2016 3:46pm Weight 145.00 lb Heart Rate 76 /min BP Systolic Sitting 114 mmHg BP Diastolic Sitting 60 mmHg Respiratory Rate 16 /min O2 % BldC Oximetry 99 % 07/28/2016 11:11am Weight 149.00 lb Heart Rate 84 /min BP Systolic Sitting 116 mmHg BP Diastolic Sitting 62 mmHg Body Temperature 97.7 F O2 % BldC Oximetry 99 % 07/28/2016 11:01am Weight 141.00 lb 01/07/2016 1:09pm Weight 148.00 lb Heart Rate 71 /min BP Systolic Sitting 118 mmHg BP Diastolic Sitting 76 mmHg Body Temperature 98.3 F 10/08/2015 1:00pm Height 65 inches 5'5" Weight 152.00 lb Heart Rate 89 /min BP Systolic Sitting 127 mmHg BP Diastolic Sitting 77 mmHg Respiratory Rate 16 /min Body Temperature 98.4 F Pain Level 7 O2 % BldC Oximetry 98 % BMI (Body Mass Index) 25.3 kg/m2 Results Test Date Facility Test Result H/L Range Note Order 10/03/2018 [facility] EMG w/Nerve Conduct <pending> [address], [place], [place] [id number] [phone] EMG w/Nerve Conduct Study, Upper <pending> Laboratory 10/01/2018 [facility] Vitamin B1 (Whole 186 Abnormal 70-180 [address] Blood) nmol/[place] [address] [phone] Celiac Panel 10/01/2018 [facility] Tissue <1.[address] Transglutaminase U/[place] [address] IgA Ab [phone] Immunoglobulin A 211 mg/dL 61 - 356 Celiac Interpretation See Comment 3 Abo/RH Type 10/01/2018 [facility] Patient Blood B Positive [address] [place] [address] [phone] Laboratory test 10/01/2018 [facility] Ceruloplasmin 23.9 mg/dL [address] [place] [address] [phone] Neutrophil 10/01/2018 [facility] C-Anca Negative Negative [place] [address] [phone] P-Anca Negative Negative 5 Laboratory test 10/01/2018 [facility] Creatine 152 U/L N 10- 223 finding Kinase(CK) [place] [address] [phone] Cardiolipin 10/01/2018 [facility] Phospholipid Ab < 9.4 6 Igg/Igm IgM, [place] [address] [phone] Phospholipid Ab IgG < 9.4 GPL 7 Beta 2 Glycoprotein 10/01/2018 [facility] Beta 2 <9.4 U/mL 8 I [place] [address] [phone] Beta 2 Glycoprotein IgM <9.4 U/mL 9 Hla B27 10/01/2018 [facility] Hla B27 [address] [place] [address] [phone] Hla B27 Interp See Comment 11 Laboratory test 10/01/2018 [facility] Complement C3 160 mg/dL 75 - [address] [place] [address] [phone] Anti Double Stranded Dna AB <12.3 IU/mL 13 U1 CABLE RESPOOLER/SNRNP Igg 10/01/2018 [facility] U1 CABLE RESPOOLER IgG <0.2 U 14 [place] [address] [phone] Laboratory test 10/01/2018 [facility] C Reactive 4.62 mg/L N < 8.01 [place] [address] [phone] Ssa/SSB Abs Igg 10/01/2018 [facility] SS-A/Ro <0.[address] [place] [address] [phone] SS-B/La Antibody <0.2 U 16 Laboratory test 10/01/2018 [facility] Thyroperoxidase AB 1.95 IU /mL N <[address] [place] [address] [phone] Ach Receptor Binding AB 0.00 nmol/L <=0.02 17 Vitamin B12 And 10/01/2018 [facility] Vitamin B12 827 pg/mL N 180-914 [address] [place] [address] [phone] Folic Acid (Folate) > 20.00 ng/mL >3.99 Iron & Iron Binding 09/16/2018 [facility] Iron 61 g/dL N 50- 212 [address] [place] [address] [phone] Unsaturated Iron Binding < 388 g/dL Total Iron Binding Capacity 403 g/dL N 250-450 Transferrin 288 mg/dL N 203-362 % Iron Saturation 15 % N 15-55 Laboratory test 09/16/2018 [facility] Nuclear AB <1:80 (Negative ) 19 finding (Jazmín) [place] [address] Igg [phone] Mitochondrial AB AMA M2 Igg <0.1 U 20 Inr/Protime 09/16/2018 [facility] Inr 0.90 N 0.77-1.02 [place] [address] [phone] Laboratory test 09/16/2018 [facility] Smooth Muscle Negative Negative 21 [place] [address] [phone] Creatine Kinase(CK) 229 U/L High 10-223 TSH (Thyroid Stim Horm) 1.58 mcIU/mL N 0.34-5.60 Aldolase 7.7 U/L Abnormal <7.7 22 Laboratory test 09/16/2018 [facility] Ferritin 76.4 ng/mL N 24 -336 [place] [address] [phone] Comp Metabolic Panel 09/16/2018 [facility] Sodium 139 mmol/L N 135-145 [place] [address] [phone] Potassium 4.6 mmol/L N 3.5-5.0 Chloride 103 mmol/L N 101-111 Co2 Carbon Dioxide 29 mmol/L N 22-32 Anion Gap 7 mmol/L N 2-11 Blood Urea Nitrogen 17 mg/dL N 6-24 Creatinine 1.18 mg/dL High 0.67-1.17 BUN/Creatinine Ratio 14.4 N 8-20 Calcium 10.0 mg/dL N 8.6-10.3 Total Protein 7.6 g/dL N 6.4-8.9 Albumin 5.2 g/dL N 3.2-5.2 Globulin 2.4 g/dL N 2-4 Albumin/Globulin Ratio 2.2 N 1-3 Total Bilirubin 0.30 mg/dL N 0.2-1.0 Alkaline Phosphatase 78 U/L N 34-104 Alt 118 U/L High 7-52 Ast 42 U/L High 13-39 Egfr Non- 68.7 >60 Egfr 83.2 >60 23 Glucose 95 mg/dL N 70-100 Laboratory test 09/16/2018 [facility] Alpha 1 111 mg/dL 100 - [address] Antitrypsin A1a 190 [place] [address] [phone] Ceruloplasmin 23.3 mg/dL 25 Laboratory test 09/04/2018 [facility] Ast (Sgot) 44 U/L High 13-[address] [place] [address] [phone] Alt (SGPT) 136 U/L High 7-52 Lactic Acid 0.7 mmol/L N 0.5-2.0 26 Hepatitis 08/20/2018 [facility] Hepatitis A Nonreactive Nonreactive Acute Panel [address] [place] [address] [phone] Hepatitis B Core AB Igm Nonreactive Nonreactive Hepatitis B Surface Ag Nonreactive Nonreactive Hepatitis C Antibody 08/20/2018 [facility] HCV Index < 0.[address] [place] [address] [phone] Hepatitis C Antibody Nonreactive Nonreactive Liver Function 08/20/2018 [facility] Total Protein 6.9 g/dL N 6.4-8.[address] [place] [address] [phone] Albumin 4.9 g/dL N 3.2-5.2 Globulin 2.0 g/dL N 2-4 Albumin/Globulin Ratio 2.5 N 1-3 Total Bilirubin 0.40 mg/dL N 0.2-1.0 Direct Bilirubin 0.00 mg/dL Low 0.03-0.18 Alkaline Phosphatase 72 U/L N 34-104 Alt 191 U/L High 7-52 Ast 65 U/L High 13-39 Laboratory test 08/14/2018 [facility] Erythrocyte Sed 8 mm/Hr N 0-[address] [place] [address] [phone] C Reactive Protein 3.71 mg/L N <8.01 Aldolase 13.5 U/L Abnormal <7.7 27 Creatine Kinase(CK) 180 U/L N 10-223 Arthritis Panel 06/29/2018 [facility] Uric Acid 7.0 mg/dL N 4.4-7.[address] [place] [address] [phone] Rheumatoid Factor < 10 IU/mL N <15 Erythrocyte Sed Rate 9 mm/Hr N 0-14 Anti-Nuclear Antibody 1.3 U High 28 Cyclic Citrullinated Peptide <15.6 U 29 Interpretation See Comment 30 Laboratory test 06/29/2018 [facility] Lyme Disease Negative Negative [address] [place] [address] [phone] Quantiferon Gold 04/04/2017 [facility] M tuberculosis Negative N Negative [address] [place] [address] [phone] TB Ag minus Nil Result 0.26 IU/mL N TB Mitogen minus Nil Result > 10.00 IU/mL N TB Nil Result 0.04 IU/mL N 33 Lipid Profile 01/24/2017 [facility] Triglycerides 65 mg/dL N 34 (Trig/Chol/HDL) [address] [place] [address] [phone] Cholesterol 144 mg/dL N 35 HDL Cholesterol 48.6 mg/dL N 36 LDL Cholesterol 82 mg/dL N 37 Comp Metabolic Panel 01/24/2017 [facility] Sodium 137 mmol/L N 133-[address] [place] [address] [phone] Potassium 4.3 mmol/L N 3.5-5.0 Chloride 102 mmol/L N 101-111 Co2 Carbon Dioxide 29 mmol/L N 22-32 Anion Gap 6 mmol/L N 2-11 Glucose 84 mg/dL N 70-100 Blood Urea Nitrogen 16 mg/dL N 6-24 Creatinine 1.00 mg/dL N 0.67-1.17 BUN/Creatinine Ratio 16.0 N 8-20 Calcium 9.5 mg/dL N 8.6-10.3 Total Protein 6.9 g/dL N 6.4-8.9 Albumin 4.6 g/dL N 3.2-5.2 Globulin 2.3 g/dL N 2-4 Albumin/Globulin Ratio 2.0 N 1-3 Total Bilirubin 0.40 mg/dL N 0.2-1.0 Alkaline Phosphatase 45 U/L N 34-104 Alt 53 U/L High 7-52 Ast 30 U/L N 13-39 Egfr Non- 84.1 N >60 Egfr 108.1 N >60 38 Laboratory test 01/24/2017 [facility] TSH (Thyroid 1.90 mcIU/mL N 0.34-5.60 [address] Stim Horm) [place] [address] [phone] CBC Auto Diff 01/24/2017 [facility] White Blood 7.1 10^3/uL N 3.5-10.[address] [place] [address] [phone] Red Blood Count 4.35 10^6/uL N 4.0-5.4 Hemoglobin 14.1 g/dL N 14.0-18.0 Hematocrit 42 % N 42-52 Mean Corpuscular Volume 96 fL High 80-94 Mean Corpuscular Hemoglobin 32 pg High 27-31 Mean Corpuscular HGB Conc 34 g/dL N 31-36 Red Cell Distribution Width 12 % N 10.5-15 Platelet Count 256 10^3/uL N 150-450 Mean Platelet Volume 9 um3 N 7.4-10.4 Abs Neutrophils 4.6 10^3/uL N 1.5-7.7 Abs Lymphocytes 2.1 10^3/uL N 1.0-4.8 Abs Monocytes 0.4 10^3/uL N 0-0.8 Abs Eosinophils 0 10^3/uL N 0-0.6 Abs Basophils 0 10^3/uL N 0-0.2 Abs Nucleated RBC 0 10^3/uL N Granulocyte % 64.5 % N 38-83 Lymphocyte % 29.2 % N 25-47 Monocyte % 5.5 % N 1-9 Eosinophil % 0.4 % N 0-6 Basophil % 0.4 % N 0-2 Nucleated Red Blood Cells % 0.1 N CBC Auto Diff 07/28/2016 [facility] White Blood 7.1 10^3/uL N 3.5-10.[address] [place] [address] [phone] Red Blood Count 4.30 10^6/uL N 4.0-5.4 Hemoglobin 14.1 g/dL N 14.0-18.0 Hematocrit 41 % Low 42-52 Mean Corpuscular Volume 96 fL High 80-94 Mean Corpuscular Hemoglobin 33 pg High 27-31 Mean Corpuscular HGB Conc 34 g/dL N 31-36 Red Cell Distribution Width 13 % N 10.5-15 Platelet Count 284 10^3/uL N 150-450 Mean Platelet Volume 9 um3 N 7.4-10.4 Abs Neutrophils 4.8 10^3/uL N 1.5-7.7 Abs Lymphocytes 1.8 10^3/uL N 1.0-4.8 Abs Monocytes 0.4 10^3/uL N 0-0.8 Abs Eosinophils 0.1 10^3/uL N 0-0.6 Abs Basophils 0.1 10^3/uL N 0-0.2 Abs Nucleated RBC 0 10^3/uL N Granulocyte % 67.0 % N 38-83 Lymphocyte % 25.3 % N 25-47 Monocyte % 5.9 % N 1-9 Eosinophil % 0.8 % N 0-6 Basophil % 1.0 % N 0-2 Nucleated Red Blood Cells % 0 N Liver Function 07/28/2016 [facility] Total Protein 7.3 g/dL N 6.4-8.9 Panel [address] [place] [address] [phone] Albumin 4.7 g/dL N 3.2-5.2 Globulin 2.6 g/dL N 2-4 Albumin/Globulin Ratio 1.8 N 1-3 Total Bilirubin 0.40 mg/dL N 0.2-1.0 Direct Bilirubin 0.10 mg/dL N 0.03-0.18 Indirect Bilirubin 0.3 mg/dL N 0.3-1.0 Alkaline Phosphatase 50 U/L N 34-104 Alt 14 U/L N 7-52 Ast 12 U/L Low 13-39 Urinalysis Profile 11/09/2015 [facility] Urine Color Straw N [address] [place] [address] [phone] Urine Appearance Clear N Urine Specific [place] 1.009 Low 1.010-1.030 Urine pH 5.0 N 5-9 Urine Urobilinogen Negative N Negative Urine Ketones Negative N Negative Urine Protein Negative N Negative Urine Leukocytes Negative N Negative Urine Blood Negative N Negative Urine Nitrite Negative N Negative Urine Bilirubin Negative N Negative Urine Glucose Negative N Negative CBC Auto Diff 10/08/2015 [facility] White Blood 9.2 10^3/uL N 3.5-10.[address] [place] [address] [phone] Red Blood Count 4.52 10^6/uL N 4.0-5.4 Hemoglobin 14.8 g/dL N 14.0-18.0 Hematocrit 43 % N 42-52 Mean Corpuscular Volume 94 fL N 80-94 Mean Corpuscular Hemoglobin 33 pg High 27-31 Mean Corpuscular HGB Conc 35 g/dL N 31-36 Red Cell Distribution Width 12 % N 10.5-15 Platelet Count 296 10^3/uL N 150-450 Mean Platelet Volume 8 um3 N 7.4-10.4 Abs Neutrophils 7.4 10^3/uL N 1.5-7.7 Abs Lymphocytes 1.4 10^3/uL N 1.0-4.8 Abs Monocytes 0.3 10^3/uL N 0-0.8 Abs Eosinophils 0 10^3/uL N 0-0.6 Abs Basophils 0.1 10^3/uL N 0-0.2 Abs Nucleated RBC 0 10^3/uL N Granulocyte % 80.1 % N 38-83 Lymphocyte % 14.9 % Low 25-47 Monocyte % 3.8 % N 1-9 Eosinophil % 0.5 % N 0-6 Basophil % 0.7 % N 0-2 Nucleated Red Blood Cells % 0 N Laboratory 10/08/2015 [facility] TSH (Thyroid 1.25 ?IU/mL N 0.34-5.60 test finding [address] Stim Horm) [place] [address] [phone] HIV 1/2 AB 10/08/2015 [facility] HIV 1 2 Nonreactive N Nonreactive [address] [place] [address] [phone] Ua Routine 10/08/2015 [facility] Ua Specific 1.010 [place] Ua PH 5 Ua Color light yellow Ua Appera clear Ua WBC negative Ua Protein negative Ua Glucose normal Ua Ketones negative Ua Bilirubin negative Ua Urobilinogen negative Ua Nitrite negative Ua Occult Blood trace GC/Chlamydia 10/08/2015 [facility] Chlamydia Negative N Negative Amplified Rna [address] [facility] [place] [address] [phone] Neisseria gonorrhoeae (GC) Rna Negative N Negative Basic Metabolic Panel 10/08/2015 [facility] Sodium 137 mmol/L N 133-[address] [place] [address] [phone] Potassium 4.4 mmol/L N 3.5-5.0 Chloride 100 mmol/L Low 101-111 Co2 Carbon Dioxide 30 mmol/L N 22-32 Anion Gap 7 mmol/L N 2-11 Glucose 94 mg/dL N 70-100 Blood Urea Nitrogen 14 mg/dL N 6-24 Creatinine 0.99 mg/dL N 0.67-1.17 BUN/Creatinine Ratio 14.1 N 8-20 Calcium 10.0 mg/dL N 8.6-10.3 Egfr Non- 85.5 N >60 Egfr 110.0 N >60 41 1 ADDITIONAL INFORMATION This test was developed and its performance characteristics determined by [facility] in a manner consistent with CLIA requirements. This test has not been cleared or approved by the U.S. Food and Drug Administration. Test Performed by: [facility] [place] [address] 2 REFERENCE VALUE <4.0 (Negative) Test Performed by: [facility] [place] [address] 3 Negative serology. Celiac disease unlikely. However, approximately 10% of patients with celiac disease are seronegative. Also, patients who are already adhering to a gluten-free diet may be seronegative. If celiac disease is highly clinically suspected, consider HLA-DQ typing. Test Performed by: [facility] - [address] [address] 4 REFERENCE VALUE 19.0 - 31.0 Test Performed by: [facility] - [facility] [address] [place] [address] 5 Negative for cANCA and pANCA patterns by immunofluorescence. ADDITIONAL INFORMATION This test was developed and its performance characteristics determined by [facility] in a manner consistent with CLIA requirements. This test has not been cleared or approved by the U.S. Food and Drug Administration. Test Performed by: [facility] - [address] [place] [address] 6 REFERENCE VALUE <15.0 (Negative) 7 REFERENCE VALUE <15.0 (Negative) Test Performed by: [facility] [address] [place] [address] 8 REFERENCE VALUE <15.0 (Negative) 9 REFERENCE VALUE <15.0 (Negative) Test Performed by: [facility] [address] [place] [address] 10 REFERENCE VALUE Not Applicable 11 RESULT: HLA-B27 antigen was not detected. ADDITIONAL INFORMATION Method: Flow Cytometry Performing Laboratory CLIA# [id number] Test Performed by: [facility] - [address] [address] Test Performed by: [facility] [place] [address] 13 REFERENCE VALUE <30.0 (Negative) Test Performed by: [facility] - [address] [address] 14 REFERENCE VALUE <1.0 (Negative) Test Performed by: [facility] - [address] [address] 15 REFERENCE VALUE <1.0 (Negative) 16 REFERENCE VALUE <1.0 (Negative) Test Performed by: [facility] - [address] [address] 17 ADDITIONAL INFORMATION This test was developed and its performance characteristics determined by [facility] in a manner consistent with CLIA requirements. This test has not been cleared or approved by the U.S. Food and Drug Administration. Test Performed by: [facility] - [address] [address] 18 Normal Range 180 to 914 Indeterminate Range 145 to 180 Deficient Range <145 19 <1:80 (Negative) REFERENCE VALUE <1:80 (Negative) Test Performed by: [facility] - [address] [address] 20 REFERENCE VALUE <0.1 (Negative) Test Performed by: [facility] - [address] [address] 21 ADDITIONAL INFORMATION This test was developed and its performance characteristics determined by [facility] in a manner consistent with CLIA requirements. This test has not been cleared or approved by the U.S. Food and Drug Administration. Test Performed by: [address] [address] 22 Test Performed by: [address] [address] 23 Because ethnic data is not always readily [...] 15-29 5 Kidney failure <15 (or dialysis) 24 Test Performed by: [facility] - [address] [address] 25 REFERENCE VALUE 19.0 - 31.0 Test Performed by: [facility] - [address] [address] 26 [facility] Severe Sepsis and Septic Shock Management Bundle Measure requires all lactic acids initially measuring >2.0 mmol/L be repeated. 27 Test Performed by: [facility] - [address] [address] 28 Interpretation: Weak Positive (1.1-2.9) REFERENCE VALUE <=1.0 (Negative) 29 REFERENCE VALUE <20.0 (Negative) 30 Tests for antibodies to dsDNA and PIERRE antigens are not performed automatically unless the JAZMÍN result is > or= 3.0 U. Studies performed at [facility] indicate that positive JAZMÍN results <3.0 U are rarely accompanied by positive second order tests. Test Performed by: [place] [address] 31 No evidence of antibodies to B. burgdorferi detected. False negative results may occur in recently infected patients (<=2 weeks) due to low or undetectable antibody levels to B. burgdorferi. If recent exposure is suspected, a second sample should be collected and tested in 2-4 weeks. Test Performed by: [facility] [place] [address] 32 No interferon-gamma response to M. tuberculosis antigens was detected. Infection with M. tuberculosis is unlikely. A negative result alone does not exclude infection with M. tuberculosis. For detailed information regarding test interpretation see: [email or web address] 33 Test Performed by: [address] [address] 34 Desirable <150 Borderline high 150-199 High 200-499 Very High >500 35 Desirable <200 Borderline high 200-239 High >239 36 Low <40 Desirable: 40-60 High: >60 37 Desirable: <100 mg/dL Near Optimal: 100-129 mg/dL Borderline High: 130-159 mg/dL High: 160-189 mg/dL Very High: >189 mg/dL 38 Because ethnic data is not always readily [...] 15-29 5 Kidney failure <15 (or dialysis) 39 FASTING 40 It is recognized that currently available assays [...] 95% confidence interval of 99.78 to 99.96%. 41 Because ethnic data is not always readily [...] 15-29 5 Kidney failure <15 (or dialysis) Procedures Date Code Description Status 10/03/2018 41137 Nerve Conduction 03-04 Studies Completed 07/30/2018 04768 Pulmonary Function><Bronchodil Completed 11/14/2017 49791 Removal Skin Tags Up To 15 Completed 01/15/2014 47046 EKG, Interpretation Only Completed Encounters Type Date Location Provider Dx Diagnosis Office Visit 11/01/2018 Rheumatology Ross Salgado R76.0 Raised antibody 1:00p [facility] Gil titer R20.8 Other disturbances of skin sensation R14.0 Abdominal distension (gaseous) R42 Dizziness and giddiness Office Visit 10/29/2018 [facility] Gastroenterology Winnie R14.0 Abdominal 1:00p KYM Donato distension (gaseous) Office Visit 10/01/2018 Rheumatology Services Ross [place].10 Myalgia, 1:00p Of [facility] Maria Salgado M.D. unspecified site R68.2 Dry mouth, unspecified R07.0 Pain in throat R76.0 Raised antibody titer R20.8 Other disturbances of skin sensation R74.8 Abnormal levels of other serum enzymes Office Visit 09/16/2018 [facility] Gastroenterology Yoel Vazquez K76.89 Other specified 2:30p MD Yousuf diseases of liver K21.9 Gastro-esophageal reflux disease without esophagitis M79.10 Myalgia, unspecified site R68.2 Dry mouth, unspecified Office Visit 08/20/2018 10:00a [facility] Clay Melendez79.10 MyalgiaChris M.D. unspecified site [place] R32 Unspecified urinary incontinence Office Visit 08/14/2018 11:40a [facility] Clay Melenedz79.10 MyalgiaChris M.D. 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 unspecified [place] R07.0 Pain in throat K21.9 Gastro-esophageal reflux disease without esophagitis Office 07/01/2018 [facility] Gastroenterology Winnie K21.9 Gastro-esophageal Visit 10:45a KYM Donato reflux disease without esophagitis F41.9 Anxiety disorder, unspecified Office Visit 06/27/2018 1:00p Orthopedic Karin Pantoja, M25.531 Pain in Services [facility] Terrance Gil right wrist M25.532 Pain in left wrist Office Visit 06/04/2018 11:40a [facility] Internal Jonathan Villagran S40.021A Contusion of Chris Mccabe M.D. right upper arm, [place] initial encounter S80.11xA Contusion of right lower leg, initial encounter M54.5 Low back pain Office Visit 06/03/2018 1:10p [facility] Dermatology Win Wu L70.0 Acne vulgaris Office Visit 05/29/2018 10:20a [facility] Clay Villagran L98.9 Disorder of the Chris Mccabe M.D. 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 skin and [place] subcutaneous tissue, unspecified Office Visit 07/13/2017 11:20a [facility] Internal Jonathan Villagran H93.13 Tinnitus, Chris Mccabe M.D. bilateral [place] Z23 Encounter for immunization Office Visit 01/23/2017 2:40p [facility] Internal Jonathan Villagran F31.9 Bipolar disorder, Chris Mccabe M.D. unspecified [place] Z13.220 Encounter for screening for lipoid disorders Z13.1 Encounter for screening for diabetes mellitus R53.83 Other fatigue Office Visit 12/28/2016 3:40p [facility] Internal Jonathan Villagran Z02.89 Encounter for other Chris Mccabe M.D. administrative [place] examinations F31.9 Bipolar disorder, unspecified Office Visit 07/28/2016 11:00a [facility] Internal Cristo K06.8 Oth disrd of Chris Thao M.D. gingiva and [place] edentulous alveolar ridge F31.9 Bipolar disorder, unspecified Office Visit 01/07/2016 1:00p [facility] Internal Medicine Cristo Thao, R30.0 Dysuria M.D. Office Visit 10/08/2015 1:00p [facility] Internal Medicine Cristo Master, R30.0 Dysuria M.D. R41.840 Attention and concentration deficit F31.9 Bipolar disorder, unspecified Plan of Treatment Future Appointment(s):01/30/2019 2:00 pm - Winnie Donato NP at [facility] Kkkhrmjmarizqnos89/02/2019 - Jonathan Mccabe M.D.R20.8 Other disturbances of skin sensationReferral:Charan Domingo M.D., Neurology
[2018-12-05] MEDS ORDERED: Nystatin TOP POWDER* 15 GM BTL TOPICAL ONE (01:35)
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
[2018-12-05 01:56] VITALS: BP 143/87
== END 2018-12-05 01:57 | disposition home or self-care (01) ==
LOC: ED 21:37
DX: B37.2 Candidiasis of skin and nail (principal)
CPT/HCPCS: 99282; A9270-GY

== ENCOUNTER 2019-01-15 15:03 | Inpatient (IN) | payer MEDICARE, MEDICAID ==
--- OUTSIDE RECORDS SUMMARY | 2019-01-15 15:35 | XMS REPORT | Continuity of Care Document ---
:1980 External Reference #:[id number] Author Name Henrietta Malcolm Care Team Providers Name Role Phone Jonathan Mccabe III, MD Primary Care Physician Unavailable Payers Date Identification Numbers Payment Provider Subscriber Expires: 2018 Policy Number: [id number] Medicare Martín Wu PayID: [id number] [address] [place] [address] Problems Active Problems Provider Date Bipolar I disorder Cristo Thao M.D. Onset: 10/08/2015 Gastroesophageal reflux disease Winnie Donato NP Onset: 07/01/2018 Note: pantoprazole started 06/25/18 by the ER Anxiety state Winnie Donato NP Onset: 07/01/2018 Abnormal liver function Yoel To MD Onset: 04/09/2013 Note: ALT first up this date at 175 then normal and 191 on 08/20/18 - all alk phos levels in a tight pattern 50 to 74; Fecal incontinence with fecal urgency Winnie Donato NP Onset: 12/27/2018 Note: one time only Family History Date Family Member(s) Observation Comments Father No Current Problems Mother Depression Siblings 1 Social History Type Date Description Comments Sex Unknown Marital Status Single Occupation Unemployed Tobacco Use Start: Unknown Never Smoked Cigarettes Smoking Status Reviewed: 01/08/19 Never Smoked Cigarettes ETOH Use Denies alcohol use Tobacco Use Start: Unknown Patient has never smoked Recreational Drug Use Never Used Drugs Exercise Type/Frequency Exercises regularly Last [place] 10+ years ago Allergies, Adverse Reactions, Alerts Description No Known Drug Allergies Medications Active Medications SIG Qnty Indications Ordering Provider Date Diclofenac Sodium apply 4 times 100gm M25.531 Karin Pantoja, 06/27/2018 1% Gel daily as needed M.D. for pain Aspirin Ec prn Unknown 05/21/[address] Pantoprazole Sodium 1 by mouth 30tabs Winnie Donato NP 20mg every day Tablets Vitamin C 1 by mouth Unknown W/Vitamin E twice a day [id number] Capsules Multivit daily Unknown Liquid Nutra-Support Bone Unknown Capsules Biotin Unknown 1mg Capsules Systane apply twice Unknown 0.4-0.3% Solution daily as needed for dry eyes Gas-X Unknown 80mg Chewtabs Nystatin Unknown [id number] Powder History Medications Geodon 1 by mouth twice 60caps Cristo Thao, 01/07/2016 - 40mg Capsules a day M.D. 07/28/2016 Abilify 1 by mouth every F31.9 Unknown - 5mg Tablets day 07/12/2017 Oxcarbazepine 2 by mouth every F31.9 Unknown - 300mg day. 07/28/2016 Tablets Divalproex Sodium ER Take Three Unknown - Tablets By Mouth 11/12/2017 250mg Tablets ER 24HR AT Bedtime Ziprasidone HCL Tiago Hillman MD - 80mg 07/28/2016 Capsules Ziprasidone HCL 2 tabs daily Tiago Hillman MD - 80mg 12/28/2016 Capsules Vraylar take 1 pill Unknown - 4.5mg Capsules every night 11/12/2017 Rexulti one tab once a Unknown - 1mg Tablets day 12/07/2017 Ibu take one tablet Unknown - 600mg Tablets by mouth three 07/07/2018 times a day as needed Tamsulosin HCL Unknown - 0.4mg 01/07/2019 Capsules Influenza,Unspecified Unknown - 07/28/2016 Injection Medications Administered in Office Medication SIG Qnty Indications Ordering Provider Date PPD Injection Nurse Visit C 04/02/2017 Immunizations CPT Code Status Date Vaccine Reaction Lot # [id number] Given 12/31/2018 Meningococcal Immunization 65076 Given 07/13/2017 Influenza Virus Vaccine, No immediate reaction [id number] Quadrivalent, Split, noted. Preservative Free 56497 Given 08/13/2012 Tetanus And Diptheria (Td) For Adult Use Preservative Free Vital Signs Date Vital Result Comment 01/08/2019 1:05pm Height 65 inches 5'5" Weight 167.00 lb Heart Rate 68 /min BP Systolic 128 mmHg BP Diastolic 76 mmHg Respiratory Rate 14 /min Pain Level 5 BMI (Body Mass Index) 27.8 kg/m2 12/27/2018 9:58am Height 65 inches 5'5" Weight 168.00 lb Heart Rate 71 /min BP Systolic 127 mmHg BP Diastolic 78 mmHg O2 % BldC Oximetry 95 % BMI (Body Mass Index) 28.0 kg/m2 12/09/2018 9:44am Height 65 inches 5'5" Weight 167.00 lb Heart Rate 82 /min BP Systolic 138 mmHg BP Diastolic 90 mmHg Pain Level 5 BMI (Body Mass Index) 27.8 kg/m2 11/12/2018 3:38pm Height 65 inches 5'5" Weight [...] Test Result H/L Range Note Order 10/03/2018 [facility] EMG w/Nerve Conduct <pending> [address] Study, [place] [address] [phone] EMG w/Nerve Conduct Study, Upper <pending> Laboratory 10/01/2018 [facility] Vitamin B1 (Whole 186 Abnormal 70-180 1 test finding [address] Blood) nmol/[place] [address] [phone] Celiac Panel 10/01/2018 [facility] Tissue <1.[address] Transglutaminase U/[place] [address] IgA Ab [phone] Immunoglobulin A 211 mg/dL 61 - 356 Celiac Interpretation See Comment 3 Abo/RH Type 10/01/2018 [facility] Patient Blood B Positive [address] [place] [address] [phone] Laboratory test 10/01/2018 [facility] Ceruloplasmin 23.9 mg/dL [address] [place] [address] [phone] Neutrophil 10/01/2018 [facility] C-Anca Negative Negative Cytoplasmic AB [address] [place], [place] [address] [phone] P-Anca Negative Negative 5 Laboratory test 10/01/2018 [facility] Creatine 152 U/L N 10- [address] Kinase(CK) [place] [address] [phone] Cardiolipin 10/01/2018 [facility] Phospholipid Ab < 9.4 6 Igg/Igm [address] IgM, [place] [address] [phone] Phospholipid Ab IgG < 9.4 GPL 7 Beta 2 Glycoprotein 10/01/2018 [facility] Beta 2 <9.4 U/mL [address] [place] [address] [phone] Beta 2 Glycoprotein IgM <9.4 U/mL 9 Hla B27 10/01/2018 [facility] Hla B27 Negative [address] [place] [address] [phone] Hla B27 Interp See Comment 11 Laboratory test 10/01/2018 [facility] Complement C3 160 mg/dL 75 - 175 [address] [place] [address] [phone] Anti Double Stranded Dna AB <12.3 IU/mL 13 U1 ANODE WORKER/SNRNP Igg 10/01/2018 [facility] U1 ANODE WORKER IgG Autoabs <0.2 U [address] [place] [address] [phone] Laboratory test 10/01/2018 [facility] C Reactive Protein 4.62 mg /L N <8.01 finding [address] [place] [address] [phone] Laboratory test 10/01/2018 [facility] Thyroperoxidase AB 1.95 N <9 finding [facility] IU/[place] [address] [phone] Ach Receptor Binding AB 0.00 nmol/L <=0.02 15 Vitamin B12 And 10/01/2018 [facility] Vitamin B12 827 pg/mL N 180-914 16 [place] [address] [phone] Folic Acid (Folate) > 20.00 ng/mL >3.99 Ssa/SSB Abs Igg 10/01/2018 [facility] SS-A/Ro Antibody <0.2 U 17 [place] [address] [phone] SS-B/La Antibody <0.2 U 18 Laboratory test 09/16/2018 [facility] Nuclear AB <1:80 (Negative ) 19 finding [facility] (Jazmín) [place] [address] Igg [phone] Mitochondrial AB AMA M2 Igg <0.1 U 20 Inr/Protime 09/16/2018 [facility] Inr 0.90 N 0.77-1.02 [place] [address] [phone] Laboratory test 09/16/2018 [facility] Smooth Muscle Negative Negative 21 finding [facility] [place] [address] [phone] Creatine Kinase(CK) 229 U/L High 10-223 TSH (Thyroid Stim Horm) 1.58 mcIU/mL N 0.34-5.60 Aldolase 7.7 U/L Abnormal <7.7 22 Iron & Iron Binding 09/16/2018 [facility] Iron 61 g/dL N 50- [address] [place] [address] [phone] Unsaturated Iron Binding < 388 g/dL Total Iron Binding Capacity 403 g/dL N 250-450 Transferrin 288 mg/dL N 203-362 % Iron Saturation 15 % N 15-55 Laboratory test 09/16/2018 [facility] Ferritin 76.4 ng/mL N 24 -[address] [place] [address] [phone] Comp Metabolic Panel 09/16/2018 [facility] Sodium 139 mmol/L N 135-[address] [place] [address] [phone] Potassium 4.6 mmol/L N 3.5-5.0 Chloride 103 [...] 95 mg/dL N 70-100 Laboratory test 09/16/2018 [facility] Alpha 1 111 mg/dL 100 - [address] Antitrypsin A1a 190 [place] [address] [phone] Ceruloplasmin 23.3 mg/dL 25 Laboratory test 09/04/2018 [facility] Ast (Sgot) 44 U/L High 13-[address] [place] [address] [phone] Alt (SGPT) 136 U/L High 7-52 Lactic Acid 0.7 mmol/L N 0.5-2.0 26 Hepatitis 08/20/2018 [facility] Hepatitis A Nonreactive Nonreactive Acute Panel [address] [place] [address] [phone] Hepatitis B Core AB Igm Nonreactive Nonreactive Hepatitis B Surface Ag Nonreactive Nonreactive Hepatitis C Antibody 08/20/2018 [facility] HCV Index < 0.[address] [place] [address] [phone] Hepatitis C Antibody Nonreactive Nonreactive Liver Function 08/20/2018 [facility] Total Protein 6.9 g/dL N 6.4-8.[address] [place] [address] [phone] Albumin 4.9 g/dL N 3.2-5.2 Globulin 2.0 g/dL N 2-4 Albumin/Globulin Ratio 2.5 N 1-3 Total Bilirubin 0.40 mg/dL N 0.2-1.0 Direct Bilirubin 0.00 mg/dL Low 0.03-0.18 Alkaline Phosphatase 72 U/L N 34-104 Alt 191 U/L High 7-52 Ast 65 U/L High 13-39 Laboratory test 08/14/2018 [facility] Erythrocyte Sed 8 mm/Hr N 0-[address] [place] [address] [phone] C Reactive Protein 3.71 mg/L N <8.01 Aldolase 13.5 U/L Abnormal <7.7 27 Creatine Kinase(CK) 180 U/L N 10-223 Arthritis Panel 06/29/2018 [facility] Uric Acid 7.0 mg/dL N 4.4-7.[address] [place] [address] [phone] Rheumatoid Factor < 10 IU/mL N <15 Erythrocyte Sed Rate 9 mm/Hr N 0-14 Anti-Nuclear Antibody 1.3 U High 28 Cyclic Citrullinated Peptide <15.6 U 29 Interpretation See Comment 30 Laboratory test 06/29/2018 [facility] Lyme Disease Negative Negative [address] [place] [address] [phone] Quantiferon Gold 04/04/2017 [facility] M tuberculosis Negative N Negative [address] [place] [address] [phone] TB Ag minus Nil Result 0.26 IU/mL N TB Mitogen minus Nil Result > 10.00 IU/mL N TB Nil Result 0.04 IU/mL N 33 Lipid Profile 01/24/2017 [facility] Triglycerides 65 mg/dL N 34 (Trig/Chol/HDL) [address] [place] [address] [phone] Cholesterol 144 mg/dL N 35 HDL Cholesterol 48.6 mg/dL N 36 LDL Cholesterol 82 mg/dL N 37 Comp Metabolic Panel 01/24/2017 [facility] Sodium 137 mmol/L N 133-[address] [place] [address] [phone] Potassium 4.3 mmol/L N 3.5-5.0 Chloride 102 [...] N >60 Egfr 108.1 N >60 38 CBC Auto Diff 01/24/2017 [facility] White Blood 7.1 10^3/uL N 3.5-10.[address] [place] [address] [phone] Red Blood Count 4.35 10^6/uL N 4.0-5.4 [...] Nucleated Red Blood Cells % 0.1 N Laboratory test 01/24/2017 [facility] TSH (Thyroid 1.90 mcIU/mL N 0.34-5.60 [address] Stim Horm) [place] [address] [phone] CBC Auto Diff 07/28/2016 [facility] White Blood 7.1 10^3/uL N 3.5-10.[address] [place] [address] [phone] Red Blood Count 4.30 10^6/uL N 4.0-5.4 [...] Cells % 0 N Liver Function 07/28/2016 [facility] Total Protein 7.3 g/dL N 6.4-8.[address] [place] [address] [phone] Albumin 4.7 g/dL N 3.2-5.2 Globulin 2.6 g/dL N 2-4 Albumin/Globulin Ratio 1.8 N 1-3 Total Bilirubin 0.40 mg/dL N 0.2-1.0 Direct Bilirubin 0.10 mg/dL N 0.03-0.18 Indirect Bilirubin 0.3 mg/dL N 0.3-1.0 Alkaline Phosphatase 50 U/L N 34-104 Alt 14 U/L N 7-52 Ast 12 U/L Low 13-39 Urinalysis Profile 11/09/2015 [facility] Urine Color Straw N [address] [place] [address] [phone] Urine Appearance Clear N Urine Specific [place] 1.009 Low 1.010-1.030 Urine pH 5.0 N 5-9 Urine Urobilinogen Negative N Negative Urine Ketones Negative N Negative Urine Protein Negative N Negative Urine Leukocytes Negative N Negative Urine Blood Negative N Negative Urine Nitrite Negative N Negative Urine Bilirubin Negative N Negative Urine Glucose Negative N Negative Ua Routine 10/08/2015 [facility] Ua Specific [place] 1.010 Ua PH 5 Ua Color light yellow Ua Appera clear Ua WBC negative Ua Protein negative Ua Glucose normal Ua Ketones negative Ua Bilirubin negative Ua Urobilinogen negative Ua Nitrite negative Ua Occult Blood trace HIV 1/2 AB 10/08/2015 [facility] HIV 1 2 Nonreactive N Nonreactive [address] [place] [address] [phone] Laboratory 10/08/2015 [facility] TSH (Thyroid 1.25 ?IU/mL N 0.34-5.60 test finding [address] Stim Horm) [place] [address] [phone] CBC Auto Diff 10/08/2015 [facility] White Blood 9.2 10^3/uL N 3.5-10.[address] [place] [address] [phone] Red Blood Count 4.52 10^6/uL N 4.0-5.4 [...] Nucleated Red Blood Cells % 0 N GC/Chlamydia 10/08/2015 [facility] Chlamydia Negative N Negative Amplified Rna 101 [facility] [place] [address] [phone] Neisseria gonorrhoeae (GC) Rna Negative N Negative Basic Metabolic Panel 10/08/2015 [facility] Sodium 137 mmol/L N 133-145 [address] [place] [address] [phone] Potassium 4.4 mmol/L N 3.5-5.0 Chloride 100 [...] developed and its performance characteristics determined by [facility] in a manner consistent with CLIA requirements. This test has not been cleared or approved by the U.S. Food and Drug Administration. Test Performed by: [facility] [address] [place] [address] 2 REFERENCE VALUE <4.0 (Negative) Test Performed by: [facility] - [address] [address] 3 Negative serology. Celiac disease unlikely. However, approximately 10% of patients with celiac disease are seronegative. Also, patients who are already adhering to a gluten-free diet may be seronegative. If celiac disease is highly clinically suspected, consider HLA-DQ typing. Test Performed by: [facility] - [address] [address] 4 REFERENCE VALUE 19.0 - 31.0 Test Performed by: [facility] - [address] [address] 5 Negative for cANCA and pANCA patterns by immunofluorescence. ADDITIONAL INFORMATION This test was developed and its performance characteristics determined by [facility] in a manner consistent with CLIA requirements. This test has not been cleared or approved by the U.S. Food and Drug Administration. Test Performed by: [facility] - [address] [address] 6 REFERENCE VALUE <15.0 (Negative) 7 REFERENCE VALUE <15.0 (Negative) Test Performed by: [facility] - [address] [address] 8 REFERENCE VALUE <15.0 (Negative) 9 REFERENCE VALUE <15.0 (Negative) Test Performed by: [facility] - [address] [address] 10 REFERENCE VALUE Not Applicable 11 RESULT: HLA-B27 antigen was not detected. ADDITIONAL INFORMATION Method: Flow Cytometry Performing Laboratory CLIA# [id number] Test Performed by: [address] [address] 12 Test Performed by: [facility] - [facility] [employer] [address] [place] [address] 13 REFERENCE VALUE <30.0 (Negative) Test Performed by: [address] [address] 14 REFERENCE VALUE <1.0 (Negative) Test Performed by: [facility] - [address] [address] 15 ADDITIONAL INFORMATION This test was developed and its performance characteristics determined by [facility] in a manner consistent with CLIA requirements. This test has not been cleared or approved by the U.S. Food and Drug Administration. Test Performed by: [facility] - [address], [place] [address] 16 Normal Range 180 to 914 Indeterminate Range 145 to 180 Deficient Range <145 17 REFERENCE VALUE <1.0 (Negative) 18 REFERENCE VALUE <1.0 (Negative) Test Performed by: [facility] - [address] [address] 19 <1:80 (Negative) REFERENCE VALUE <1:80 (Negative) Test Performed by: [facility] - [address] [address] 20 REFERENCE VALUE <0.1 (Negative) Test Performed by: [facility] - [address] [address] 21 ADDITIONAL INFORMATION This test was developed and its performance characteristics determined by [facility] in a manner consistent with CLIA requirements. This test has not been cleared or approved by the U.S. Food and Drug Administration. Test Performed by: [facility] - [address] [address] 22 Test Performed by: [facility] - [address] [address] 23 Because ethnic data is not always [...] <15 (or dialysis) 24 Test Performed by: [facility] - [place] [address] 25 REFERENCE VALUE 19.0 - 31.0 Test Performed by: [place] [id number] 26 [facility] Severe Sepsis and Septic Shock Management Bundle Measure requires all lactic acids initially measuring >2.0 mmol/L be repeated. 27 Test Performed by: [facility] - [place] [id number] 28 Interpretation: Weak Positive (1.1-2.9) REFERENCE VALUE <=1.0 (Negative) 29 REFERENCE VALUE <20.0 (Negative) 30 Tests for antibodies to dsDNA and PIERRE antigens are not performed automatically unless the JAZMÍN result is > or= 3.0 U. Studies performed at [facility] indicate that positive JAZMÍN results <3.0 U are rarely accompanied by positive second order tests. Test Performed by: [facility] - [place] [address] 31 No evidence of antibodies to B. burgdorferi detected. False negative results may occur in recently infected patients (<=2 weeks) due to low or undetectable antibody levels to B. burgdorferi. If recent exposure is suspected, a second sample should be collected and tested in 2-4 weeks. Test Performed by: [facility] - [facility] [address] [place] [address] 32 No interferon-gamma response to M. tuberculosis antigens was detected. Infection with M. tuberculosis is unlikely. A negative result alone does not exclude infection with M. tuberculosis. For detailed information regarding test interpretation see: [email or web address] 33 Test Performed by: [facility] - 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 M79.645 Pain in left finger(s) M62.81 Muscle weakness (generalized) Office Visit 11/12/2018 3:20p [facility] Internal Jonathan Villagran R20.8 Other disturbances Chris Mccabe M.D. of skin sensation Office Visit 11/01/2018 1:00p Rheumatology Ross R76.0 Raised antibody Services Of Dulce Maria Salgado M.D. titer R20.8 Other disturbances of skin sensation R14.0 Abdominal distension (gaseous) R42 Dizziness and giddiness Office Visit 10/29/2018 [facility] Gastroenterology Winnie R14.0 Abdominal 1:00p DonatoKYM yang distension (gaseous) Office Visit 10/01/2018 Rheumatology Services Ross M79.10 Myalgia, 1:00p Of [place] Maria Salgado M.D. unspecified site R68.2 Dry mouth, unspecified R07.0 Pain in throat R76.0 Raised antibody titer R20.8 Other disturbances of skin sensation R74.8 Abnormal levels of other serum enzymes Office Visit 09/16/2018 [facility] Gastroenterology Yoel Vazquez K76.89 Other specified 2:30p MD Yousuf diseases of liver K21.9 Gastro-esophageal reflux disease without esophagitis M79.10 Myalgia, unspecified site R68.2 Dry mouth, unspecified Office Visit 08/20/2018 10:00a [facility] Internal Jonathan Villagran M79.10 Myalgia, Chris Mccabe M.D. unspecified site [place] R32 Unspecified urinary incontinence Office Visit 08/14/2018 11:40a [facility] Internal Jonathan Villagran M79.10 Myalgia, Chris Mccabe M.D. unspecified site [place] R32 Unspecified urinary incontinence Office 07/31/2018 [facility] Gastroenterology Winnie K21.9 Gastro-esophageal Visit 9:00a KYM Donato reflux disease without esophagitis R68.2 Dry mouth, unspecified F45.8 Other somatoform disorders Office Visit 07/17/2018 3:20p [facility] Internal Jonathan Villagran R07.0 Pain in throat Jeffery Bradford R06.00 Dyspnea, unspecified K21.9 Gastro-esophageal reflux disease without esophagitis Office Visit 07/08/2018 2:00p [facility] Internal Jonathan Villagran R06.00 Dyspnea, Chris Mccabe M.D. unspecified [place] R07.0 Pain in throat K21.9 Gastro-esophageal reflux disease without esophagitis Office 07/01/2018 [facility] Gastroenterology Winnie K21.9 Gastro-esophageal Visit 10:45a KYM Donato reflux disease without esophagitis F41.9 Anxiety disorder, unspecified Office Visit 06/27/2018 1:00p Orthopedic Karin Pantoja, M25.531 Pain in Services Of CMalikADedra Gil right wrist M25.532 Pain in left wrist Office Visit 06/04/2018 11:40a [facility] Internal Jonathan Villagran S40.021A Contusion of Chrsi Mccabe M.D. right upper arm, [place] initial encounter S80.11xA Contusion of right lower leg, initial encounter M54.5 Low back pain Office Visit 06/03/2018 1:10p [facility] Dermatology Win Wu L70.0 Acne vulgaris MD Office Visit 05/29/2018 10:20a [facility] Clay Villagran L98.9 Disorder of the Chris Mccabe M.D. 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 skin and [place] subcutaneous tissue, unspecified Office Visit 07/13/2017 11:20a [facility] Clay Villagran H93.13 Tinnitus, Chris Mccabe M.D. bilateral [place] Z23 Encounter for immunization Office Visit 01/23/2017 2:40p [facility] Clay Villagran F31.9 Bipolar disorderChris M.D. unspecified [place] Z13.220 Encounter for screening for lipoid disorders Z13.1 Encounter for screening for diabetes mellitus R53.83 Other fatigue Office Visit 12/28/2016 3:40p [facility] Internal Jonathan Villagran Z02.89 Encounter for other Medicine - Jeffery Mccabe administrative [place] examinations F31.9 Bipolar disorder, unspecified Office Visit 07/28/2016 11:00a [facility] Internal Cristo K06.8 Oth disrd of Medicine - Jeffery Thao gingiva and [place] edentulous alveolar ridge F31.9 Bipolar disorder, unspecified Office Visit 01/07/2016 1:00p [facility] Internal Medicine Cristo Thao, R30.0 Dysuria M.D. Office Visit 10/08/2015 1:00p [facility] Internal Medicine Cristo Thao, R30.0 Dysuria M.D. R41.840 Attention and concentration deficit F31.9 Bipolar disorder, unspecified Plan of Treatment Future Appointment(s):02/27/2019 1:00 pm - Winnie Donato NP at [facility] Tvqypdpwujwpaocj67/28/2019 10:00 am - Charan Domingo M.D. at [facility]
--- OUTSIDE RECORDS SUMMARY | 2019-01-15 15:35 | XMS REPORT | Continuity of Care Document ---
:1980 External Reference #:[id number] Author Name Henrietta Malcolm Care Team Providers Name Role Phone Jonathan Mccabe III, MD Primary Care Physician Unavailable Payers Date Identification Numbers Payment Provider Subscriber Expires: 2018 Policy Number: [id number] Medicare Martín Wu PayID: [id number] [address] [place] [address] Problems Active Problems Provider Date Bipolar I [...] Used Drugs Exercise Type/Frequency Exercises regularly Last [place] 10+ years ago Allergies, Adverse Reactions, Alerts [...] mouth Unknown W/Vitamin E twice a day [id number] Capsules Multivit daily Unknown Liquid Nutra-Support Bone Unknown Capsules Biotin Unknown 1mg Capsules Systane apply twice Unknown 0.4-0.3% Solution daily as needed for dry eyes Gas-X Unknown 80mg Chewtabs Nystatin Unknown [id number] Powder History Medications Geodon 1 by mouth [...] Code Status Date Vaccine Reaction Lot # [id number] Given 12/31/2018 Meningococcal Immunization 17605 Given 07/13/2017 Influenza Virus Vaccine, No immediate reaction [id number] Quadrivalent, Split, noted. Preservative Free 23358 Given 08/13/2012 Tetanus And Diptheria (Td) For [...] Test Result H/L Range Note Order 10/03/2018 [facility] EMG w/Nerve Conduct <pending> [address] Study, [place] [address] [phone] EMG w/Nerve Conduct Study, Upper <pending> Laboratory 10/01/2018 [facility] Vitamin B1 (Whole 186 Abnormal 70-180 1 test finding [address] Blood) nmol/[place] [address] [phone] Celiac Panel 10/01/2018 [facility] Tissue <1.[address] Transglutaminase U/[place] [address] IgA Ab [phone] Immunoglobulin A 211 mg/dL 61 - 356 Celiac Interpretation See Comment 3 Abo/RH Type 10/01/2018 [facility] Patient Blood B Positive [address] [place] [address] [phone] Laboratory test 10/01/2018 [facility] Ceruloplasmin 23.9 mg/dL [address] [place] [address] [phone] Neutrophil 10/01/2018 [facility] C-Anca Negative Negative Cytoplasmic AB [address] [place], [place] [address] [phone] P-Anca Negative Negative 5 Laboratory test 10/01/2018 [facility] Creatine 152 U/L N 10- [address] Kinase(CK) [place] [address] [phone] Cardiolipin 10/01/2018 [facility] Phospholipid Ab < 9.4 6 Igg/Igm [address] IgM, [place] [address] [phone] Phospholipid Ab IgG < 9.4 GPL 7 Beta 2 Glycoprotein 10/01/2018 [facility] Beta 2 <9.4 U/mL [address] [place] [address] [phone] Beta 2 Glycoprotein IgM <9.4 U/mL 9 Hla B27 10/01/2018 [facility] Hla B27 Negative [address] [place] [address] [phone] Hla B27 Interp See Comment 11 Laboratory test 10/01/2018 [facility] Complement C3 160 mg/dL 75 - 175 [address] [place] [address] [phone] Anti Double Stranded Dna AB <12.3 IU/mL 13 U1 [employer]/SNRNP Igg 10/01/2018 [facility] U1 [employer] IgG Autoabs <0.2 U [address] [place] [address] [phone] Laboratory test 10/01/2018 [facility] C Reactive Protein 4.62 mg /L N <8.01 finding [address] [place] [address] [phone] Laboratory test 10/01/2018 [facility] Thyroperoxidase AB 1.95 N <9 [address] [facility] IU/[place] [address] [phone] Ach Receptor Binding AB 0.00 nmol/L <=0.02 15 Vitamin B12 And 10/01/2018 [facility] Vitamin B12 827 pg/mL N 180-914 16 [place] [address] [phone] Folic Acid (Folate) > 20.00 ng/mL >3.99 Ssa/SSB Abs Igg 10/01/2018 [facility] SS-A/Ro Antibody <0.2 U 17 [place] [address] [phone] SS-B/La Antibody <0.2 U 18 Laboratory test 09/16/2018 [facility] Nuclear AB <1:80 (Negative ) 19 finding [facility] ([place]) [place] [address] Igg [phone] Mitochondrial AB AMA M2 Igg <0.1 U 20 Inr/Protime 09/16/2018 [facility] Inr 0.90 N 0.77-1.02 [place] [address] [phone] Laboratory test 09/16/2018 [facility] Smooth Muscle Negative Negative 21 finding [facility] [place] [address] [phone] Creatine Kinase(CK) 229 U/L High 10-223 TSH (Thyroid Stim Horm) 1.58 mcIU/mL N 0.34-5.60 Aldolase 7.7 U/L Abnormal <7.7 22 Iron & Iron Binding 09/16/2018 [facility] Iron 61 g/dL N 50- [address] [place] [address] [phone] Unsaturated Iron Binding < 388 g/dL Total Iron Binding Capacity 403 g/dL N 250-450 Transferrin 288 mg/dL N 203-362 % Iron Saturation 15 % N 15-55 Laboratory test 09/16/2018 [facility] Ferritin 76.4 ng/mL N 24 -[address] [place] [address] [phone] Comp Metabolic Panel 09/16/2018 [facility] Sodium 139 mmol/L N 135-[address] [place] [address] [phone] Potassium 4.6 mmol/L N 3.5-5.0 Chloride 103 [...] 95 mg/dL N 70-100 Laboratory test 09/16/2018 [facility] Alpha 1 111 mg/dL 100 - [address] Antitrypsin A1a 190 [place] [address] [phone] Ceruloplasmin 23.3 mg/dL 25 Laboratory test 09/04/2018 [facility] Ast (Sgot) 44 U/L High 13-[address] [place] [address] [phone] Alt (SGPT) 136 U/L High 7-52 Lactic Acid 0.7 mmol/L N 0.5-2.0 26 Hepatitis 08/20/2018 [facility] Hepatitis A Nonreactive Nonreactive Acute Panel [address] [place] [address] [phone] Hepatitis B Core AB Igm Nonreactive Nonreactive Hepatitis B Surface Ag Nonreactive Nonreactive Hepatitis C Antibody 08/20/2018 [facility] HCV Index < 0.[address] [place] [address] [phone] Hepatitis C Antibody Nonreactive Nonreactive Liver Function 08/20/2018 [facility] Total Protein 6.9 g/dL N 6.4-8.[address] [place] [address] [phone] Albumin 4.9 g/dL N 3.2-5.2 Globulin 2.0 g/dL N 2-4 Albumin/Globulin Ratio 2.5 N 1-3 Total Bilirubin 0.40 mg/dL N 0.2-1.0 Direct Bilirubin 0.00 mg/dL Low 0.03-0.18 Alkaline Phosphatase 72 U/L N 34-104 Alt 191 U/L High 7-52 Ast 65 U/L High 13-39 Laboratory test 08/14/2018 [facility] Erythrocyte Sed 8 mm/Hr N 0-[address] [place] [address] [phone] C Reactive Protein 3.71 mg/L N <8.01 Aldolase 13.5 U/L Abnormal <7.7 27 Creatine Kinase(CK) 180 U/L N 10-223 Arthritis Panel 06/29/2018 [facility] Uric Acid 7.0 mg/dL N 4.4-7.[address] [place] [address] [phone] Rheumatoid Factor < 10 IU/mL N <15 Erythrocyte Sed Rate 9 mm/Hr N 0-14 Anti-Nuclear Antibody 1.3 U High 28 Cyclic Citrullinated Peptide <15.6 U 29 Interpretation See Comment 30 Laboratory test 06/29/2018 [facility] Lyme Disease Negative Negative [address] [place] [address] [phone] Quantiferon Gold 04/04/2017 [facility] M tuberculosis Negative N Negative [address] [place] [address] [phone] TB Ag minus Nil Result 0.26 IU/mL N TB Mitogen minus Nil Result > 10.00 IU/mL N TB Nil Result 0.04 IU/mL N 33 Lipid Profile 01/24/2017 [facility] Triglycerides 65 mg/dL N 34 (Trig/Chol/HDL) [address] [place] [address] [phone] Cholesterol 144 mg/dL N 35 HDL Cholesterol 48.6 mg/dL N 36 LDL Cholesterol 82 mg/dL N 37 Comp Metabolic Panel 01/24/2017 [facility] Sodium 137 mmol/L N 133-[address] [place] [address] [phone] Potassium 4.3 mmol/L N 3.5-5.0 Chloride 102 [...] N >60 38 CBC Auto Diff 01/24/2017 [facility] White Blood 7.1 10^3/uL N 3.5-10.[address] [place] [address] [phone] Red Blood Count 4.35 10^6/uL N 4.0-5.4 [...] Cells % 0.1 N Laboratory test 01/24/2017 [facility] TSH (Thyroid 1.90 mcIU/mL N 0.34-5.60 [address] Stim Horm) [place] [address] [phone] CBC Auto Diff 07/28/2016 [facility] White Blood 7.1 10^3/uL N 3.5-10.[address] [place] [address] [phone] Red Blood Count 4.30 10^6/uL N 4.0-5.4 [...] Cells % 0 N Liver Function 07/28/2016 [facility] Total Protein 7.3 g/dL N 6.4-8.[address] [place] [address] [phone] Albumin 4.7 g/dL N 3.2-5.2 Globulin 2.6 g/dL N 2-4 Albumin/Globulin Ratio 1.8 N 1-3 Total Bilirubin 0.40 mg/dL N 0.2-1.0 Direct Bilirubin 0.10 mg/dL N 0.03-0.18 Indirect Bilirubin 0.3 mg/dL N 0.3-1.0 Alkaline Phosphatase 50 U/L N 34-104 Alt 14 U/L N 7-52 Ast 12 U/L Low 13-39 Urinalysis Profile 11/09/2015 [facility] Urine Color Straw N [address] [place] [address] [phone] Urine Appearance Clear N Urine Specific Adamant 1.009 Low 1.010-1.030 Urine pH 5.0 N 5-9 Urine Urobilinogen Negative N Negative Urine Ketones Negative N Negative Urine Protein Negative N Negative Urine Leukocytes Negative N Negative Urine Blood Negative N Negative Urine Nitrite Negative N Negative Urine Bilirubin Negative N Negative Urine Glucose Negative N Negative Ua Routine 10/08/2015 [facility] Ua Specific Adamant 1.010 Ua PH 5 Ua Color light yellow Ua Appera clear Ua WBC negative Ua Protein negative Ua Glucose normal Ua Ketones negative Ua Bilirubin negative Ua Urobilinogen negative Ua Nitrite negative Ua Occult Blood trace HIV 1/2 AB 10/08/2015 [facility] HIV 1 2 Nonreactive N Nonreactive [address] [place] [address] [phone] Laboratory 10/08/2015 [facility] TSH (Thyroid 1.25 ?IU/mL N 0.34-5.60 test finding [address] Stim Horm) [place] [address] [phone] CBC Auto Diff 10/08/2015 [facility] White Blood 9.2 10^3/uL N 3.5-10.[address] [place] [address] [phone] Red Blood Count 4.52 10^6/uL N 4.0-5.4 [...] Blood Cells % 0 N GC/Chlamydia 10/08/2015 [facility] Chlamydia Negative N Negative Amplified Rna [address] [facility] [place] [address] [phone] Neisseria gonorrhoeae (GC) Rna Negative N Negative Basic Metabolic Panel 10/08/2015 [facility] Sodium 137 mmol/L N 133-145 [address] [place] [address] [phone] Potassium 4.4 mmol/L N 3.5-5.0 Chloride 100 [...] developed and its performance characteristics determined by [facility] in a manner consistent with CLIA requirements. This test has not been cleared or approved by the U.S. Food and Drug Administration. Test Performed by: [facility] - [facility] [address] [place] [address] 2 REFERENCE VALUE <4.0 (Negative) Test Performed by: [facility] - [address] [address] 3 Negative serology. Celiac disease unlikely. However, approximately 10% of patients with celiac disease are seronegative. Also, patients who are already adhering to a gluten-free diet may be seronegative. If celiac disease is highly clinically suspected, consider HLA-DQ typing. Test Performed by: [facility] - [address] [address] 4 REFERENCE VALUE 19.0 - 31.0 Test Performed by: [facility] - [address] [address] 5 Negative for cANCA and pANCA patterns by immunofluorescence. ADDITIONAL INFORMATION This test was developed and its performance characteristics determined by [facility] in a manner consistent with CLIA requirements. This test has not been cleared or approved by the U.S. Food and Drug Administration. Test Performed by: [facility] - [address] [address] 6 REFERENCE VALUE <15.0 (Negative) 7 REFERENCE VALUE <15.0 (Negative) Test Performed by: [facility] - [address] [address] 8 REFERENCE VALUE <15.0 (Negative) 9 REFERENCE VALUE <15.0 (Negative) Test Performed by: [facility] - [address] [address] 10 REFERENCE VALUE Not Applicable 11 RESULT: HLA-B27 antigen was not detected. ADDITIONAL INFORMATION Method: Flow Cytometry Performing Laboratory CLIA# [id number] Test Performed by: [address] [address] Test Performed by: [facility] - [facility] [email or web address] [address] [place] [address] 13 REFERENCE VALUE <30.0 (Negative) Test Performed by: [address] [address] 14 REFERENCE VALUE <1.0 (Negative) Test Performed by: [facility] - [address] [address] 15 ADDITIONAL INFORMATION This test was developed and its performance characteristics determined by [facility] in a manner consistent with CLIA requirements. This test has not been cleared or approved by the U.S. Food and Drug Administration. Test Performed by: [facility] - [address], [place] [address] 16 Normal Range 180 to 914 Indeterminate Range 145 to 180 Deficient Range <145 17 REFERENCE VALUE <1.0 (Negative) 18 REFERENCE VALUE <1.0 (Negative) Test Performed by: [facility] - [address] [address] 19 <1:80 (Negative) REFERENCE VALUE <1:80 (Negative) Test Performed by: [facility] - [address] [address] 20 REFERENCE VALUE <0.1 (Negative) Test Performed by: [facility] - [address] [address] 21 ADDITIONAL INFORMATION This test was developed and its performance characteristics determined by [facility] in a manner consistent with CLIA requirements. This test has not been cleared or approved by the U.S. Food and Drug Administration. Test Performed by: [facility] - [address] [address] 22 Test Performed by: [facility] - [address] [address] 23 Because ethnic data is not always [...] <15 (or dialysis) 24 Test Performed by: [facility] - [facility] [place] [address] 25 REFERENCE VALUE 19.0 - 31.0 Test Performed by: [place] [id number] [facility] Severe Sepsis and Septic Shock Management Bundle Measure requires all lactic acids initially measuring >2.0 mmol/L be repeated. 27 Test Performed by: [facility] - [place] [id number] Interpretation: Weak Positive (1.1-2.9) REFERENCE VALUE <=1.0 (Negative) 29 REFERENCE VALUE <20.0 (Negative) 30 Tests for antibodies to dsDNA and PIERRE antigens are not performed automatically unless the JAZMÍN result is > or= 3.0 U. Studies performed at [facility] indicate that positive JAZMÍN results <3.0 U are rarely accompanied by positive second order tests. Test Performed by: [facility] - [facility] [place] [address] 31 No evidence of antibodies to B. burgdorferi detected. False negative results may occur in recently infected patients (<=2 weeks) due to low or undetectable antibody levels to B. burgdorferi. If recent exposure is suspected, a second sample should be collected and tested in 2-4 weeks. Test Performed by: [facility] - [facility] [address] [place] [address] 32 No interferon-gamma response to M. tuberculosis antigens was detected. Infection with M. tuberculosis is unlikely. A negative result alone does not exclude infection with M. tuberculosis. For detailed information regarding test interpretation see: [email or web address] 33 Test Performed by: [facility] - [facility] [address] [place] [address] 34 Desirable <150 Borderline high 150-199 High [...] dialysis) Procedures Date Code Description Status 12/16/2018 691244144 Bone Mineral Density Test Completed 10/03/2018 22027 Nerve Conduction 03-04 Studies Completed 07/30/2018 44401 Pulmonary Function><Bronchodil Completed 11/14/2017 13594 Removal Skin Tags Up To 15 Completed 01/15/2014 34939 EKG, Interpretation Only Completed Encounters Type Date Location Provider Dx Diagnosis Office Visit 12/27/2018 [facility] Gastroenterology Winnie Donato, 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 of skin sensation Office Visit 11/01/2018 1:00p Rheumatology Ross R76.0 Raised antibody Services Of [facility] Maria Salgado M.D. titer R20.8 Other disturbances of skin sensation R14.0 Abdominal distension (gaseous) R42 Dizziness and giddiness Office Visit 10/29/2018 [facility] Gastroenterology Winnie R14.0 Abdominal 1:00p DonatoKYM yang distension (gaseous) Office Visit 10/01/2018 [facility] Services [place] M79.10 Myalgia, 1:00p Of [facility] Maria Salgado M.D. unspecified site R68.2 Dry mouth, unspecified R07.0 Pain in throat R76.0 Raised antibody titer R20.8 Other disturbances of skin sensation R74.8 Abnormal levels of other serum enzymes Office Visit 09/16/2018 [facility] Gastroenterology Yoel Vazquez K76.89 Other specified 2:30p MD Yousuf diseases of liver K21.9 Gastro-esophageal reflux disease without esophagitis M79.10 Myalgia, unspecified site R68.2 Dry mouth, unspecified Office Visit 08/20/2018 10:00a [facility] Internal Jonathan Villagran M79.10 Myalgia, Chris Mccabe M.D. unspecified site [place] R32 Unspecified urinary incontinence Office Visit 08/14/2018 11:40a [facility] Internal Jonathan Villagran M79.10 Myalgia, Chris Mccabe M.D. 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 unspecified [place] R07.0 Pain in throat K21.9 Gastro-esophageal reflux disease without esophagitis Office 07/01/2018 [facility] Gastroenterology Winnie K21.9 Gastro-esophageal Visit 10:45a KYM Donato reflux disease without esophagitis F41.9 Anxiety disorder, unspecified Office Visit 06/27/2018 1:00p Orthopedic Karin Pantoja, M25.531 Pain in Services Of CMalikADedra Gil right wrist M25.532 Pain in left wrist Office Visit 06/04/2018 11:40a [facility] Internal Jonathan Villagran S40.021A Contusion of Chris Mccabe M.D. right upper arm, [place] initial encounter S80.11xA Contusion of right lower leg, initial encounter M54.5 Low back pain Office Visit 06/03/2018 1:10p [facility] Dermatology Win Wu L70.0 Acne vulgaris MD Office Visit 05/29/2018 10:20a [facility] Clay Villagran L98.9 Disorder of the Chris Mccabe M.D. 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 skin and [place] subcutaneous tissue, unspecified Office Visit 07/13/2017 11:20a [facility] Clay Villagran H93.13 Tinnitus, Chris Mccabe M.D. bilateral [place] Z23 Encounter for immunization Office Visit 01/23/2017 2:40p [facility] Clay Villagran F31.9 Bipolar disorderChris M.D. unspecified [place] Z13.220 Encounter for screening for lipoid disorders Z13.1 Encounter for screening for diabetes mellitus R53.83 Other fatigue Office Visit 12/28/2016 3:40p [facility] Internal Jonathan Villagran Z02.89 Encounter for other Medicine - Jeffery Mccabe administrative [place] examinations F31.9 Bipolar disorder, unspecified Office Visit 07/28/2016 11:00a [facility] Internal Cristo K06.8 Oth disrd of Medicine - Jeffeyr Thao gingiva and [place] edentulous alveolar ridge F31.9 Bipolar disorder, unspecified Office Visit 01/07/2016 1:00p [facility] Internal Medicine Cristo Thao, R30.0 Dysuria M.D. Office Visit 10/08/2015 1:00p [facility] Internal Medicine Cristo Thao, R30.0 Dysuria M.D. R41.840 Attention and concentration deficit F31.9 Bipolar disorder, unspecified Plan of Treatment Future Appointment(s):02/27/2019 1:00 pm - Winnie Donato NP at [facility] Gaddqtirwtvkjecw25/28/2019 10:00 am - Charan Domingo M.D. at [facility]
--- OUTSIDE RECORDS SUMMARY | 2019-01-15 15:36 | XMS REPORT | Continuity of Care Document ---
:1980 External Reference #:[id number] Author Name Марина Kraus Care Team Providers Name Role Phone Jonathan Mccabe III, MD Primary Care Physician Unavailable Payers Date Identification Numbers Payment Provider Subscriber Expires: 2018 Policy Number: [id number] Medicare Martín Wu PayID: [id number] [address] [place] [address] Problems Active Problems Provider Date Bipolar I [...] Unknown Never Smoked Cigarettes Smoking Status Reviewed: 12/27/18 Never Smoked Cigarettes ETOH Use Denies alcohol use Tobacco Use Start: Unknown Patient has never smoked Recreational Drug Use Never Used Drugs Exercise Type/Frequency Exercises regularly Last [place] 10+ years ago Allergies, Adverse Reactions, Alerts Description No Known Drug Allergies Medications Active Medications SIG Qnty Indications Ordering Provider Date Diclofenac Sodium apply 4 times 100gm M25.531 Karin Pantoja, 06/27/2018 1% Gel daily as needed M.D. for pain Aspirin Ec prn Unknown 05/21/[address] Tovar Unknown 222686Glhd/GM Powder Gas-X Unknown 80mg Chewtabs Systane apply twice Unknown 0.4-0.3% Solution daily as needed for dry eyes Biotin Unknown 1mg Capsules Nutra-Support Bone Unknown Capsules Tamsulosin HCL Unknown 0.4mg Capsules Multivit daily Unknown Liquid Vitamin C 1 by mouth Unknown W/Vitamin E twice a day [id number] Capsules Pantoprazole Sodium 1 by mouth 30tabs Winnie Donato NP 20mg every day Tablets DR Donna Ferrara Geodon 1 by mouth twice 60caps Cristo Master, 01/07/2016 - 40mg Capsules a day M.D. [...] three 07/07/2018 times a day as needed Influenza,Unspecified Unknown - 07/28/2016 Injection Medications Administered in Office Medication SIG Qnty Indications Ordering Provider Date PPD Injection Nurse Visit C 04/02/2017 Immunizations CPT Code Status Date Vaccine Reaction Lot # [id number] Given 07/13/2017 Influenza Virus Vaccine, No immediate reaction [id number] Quadrivalent, Split, noted. Preservative Free [id number] Given 08/13/2012 Tetanus And Diptheria (Td) For Adult Use Preservative Free Vital Signs Date Vital Result Comment 12/27/2018 9:58am Height 65 inches 5'5" Weight [...] Test Result H/L Range Note Order 10/03/2018 [facility] EMG w/Nerve Conduct <pending> [address] Study, [place] [address] [phone] EMG w/Nerve Conduct Study, Upper <pending> Laboratory 10/01/2018 [facility] Vitamin B1 (Whole 186 Abnormal 70-180 1 test finding [address] Blood) nmol/[place] [address] [phone] Celiac Panel 10/01/2018 [facility] Tissue <1.[address] Transglutaminase U/[place] [address] IgA Ab [phone] Immunoglobulin A 211 mg/dL 61 - 356 Celiac Interpretation See Comment 3 Abo/RH Type 10/01/2018 [facility] Patient Blood B Positive [address] [place] [address] [phone] Laboratory test 10/01/2018 [facility] Ceruloplasmin 23.9 mg/dL [address] [place] [address] [phone] Neutrophil 10/01/2018 [facility] C-Anca Negative Negative Cytoplasmic AB [address] [place] [address] [phone] P-Anca Negative Negative 5 Laboratory test 10/01/2018 [facility] Creatine 152 U/L N 10- 223 finding [facility] Kinase(CK) [place] [address] [phone] Cardiolipin 10/01/2018 [facility] Phospholipid Ab < 9.4 6 Igg/Igm [address] DR[address] IgM, [place] [address] [phone] Phospholipid Ab IgG < 9.4 GPL 7 Beta 2 Glycoprotein 10/01/2018 [facility] Beta 2 <9.4 U/mL 8 I Abs [facility] [place] [address] [phone] Beta 2 Glycoprotein IgM <9.4 U/mL 9 Hla B27 10/01/2018 [facility] Hla B27 Negative [address] [place] [address] [phone] Hla B27 Interp See Comment 11 Laboratory test 10/01/2018 [facility] Complement C3 160 mg/dL 75 - 175 12 finding [address] [place] [address] [phone] Anti Double Stranded Dna AB <12.3 IU/mL 13 U1 [place] [facility]/SNRNP Igg 10/01/2018 [facility] U1 [place] [facility] IgG Autoabs <0.[address] [place] [address] [phone] Laboratory test 10/01/2018 [facility] C Reactive Protein 4.62 mg /L N <8.[address] [place] [address] [phone] Laboratory test 10/01/2018 [facility] Thyroperoxidase AB 1.95 N <[address] IU/[place] [address] [phone] Ach Receptor Binding AB 0.00 nmol/L <=0.02 15 Vitamin B12 And 10/01/2018 [facility] Vitamin B12 827 pg/mL N 180-914 16 Folate Serum [address] [place] [address] [phone] Folic Acid (Folate) > 20.00 ng/mL >3.99 Ssa/SSB Abs Igg 10/01/2018 [facility] SS-A/Ro Antibody <0.2 U [address] [place] [phone] SS-B/La Antibody <0.2 U 18 Laboratory test 09/16/2018 [facility] Nuclear AB <1:80 (Negative ) [address] [place] [address] (Jazmín) [place] [address] Igg [phone] Mitochondrial AB AMA M2 Igg <0.1 U 20 Inr/Protime 09/16/2018 [facility] Inr 0.90 N 0.77-1.[address] [place] [address] [phone] Laboratory test 09/16/2018 [facility] Smooth Muscle Negative Negative 21 finding [facility] [place] [address] [phone] Creatine Kinase(CK) 229 U/L High 10-223 TSH (Thyroid Stim Horm) 1.58 mcIU/mL N 0.34-5.60 Aldolase 7.7 U/L Abnormal <7.7 22 Iron & Iron Binding 09/16/2018 [facility] Iron 61 g/dL N 50- [address] [place] [address] [phone] Unsaturated Iron Binding < 388 g/dL Total Iron Binding Capacity 403 g/dL N 250-450 Transferrin 288 mg/dL N 203-362 % Iron Saturation 15 % N 15-55 Laboratory test 09/16/2018 [facility] Ferritin 76.4 ng/mL N 24 -[address] [place] [phone] Comp Metabolic Panel 09/16/2018 [facility] Sodium 139 mmol/L N 135-[address] [place] [address] [phone] Potassium 4.6 mmol/L N 3.5-5.0 Chloride 103 [...] 95 mg/dL N 70-100 Laboratory test 09/16/2018 [facility] Alpha 1 111 mg/dL 100 - [address] Antitrypsin A1a [address] [place] [address] [phone] Ceruloplasmin 23.3 mg/dL 25 Laboratory test 09/04/2018 [facility] Ast (Sgot) 44 U/L High 13-[address] [place] [address] [phone] Alt (SGPT) 136 U/L High 7-52 Lactic Acid 0.7 mmol/L N 0.5-2.0 26 Hepatitis 08/20/2018 [facility] Hepatitis A Nonreactive Nonreactive Acute Panel [address] [place] [address] [phone] Hepatitis B Core AB Igm Nonreactive Nonreactive Hepatitis B Surface Ag Nonreactive Nonreactive Hepatitis C Antibody 08/20/2018 [facility] HCV Index < 0.[address] [place] [address] [phone] Hepatitis C Antibody Nonreactive Nonreactive Liver Function 08/20/2018 [facility] Total Protein 6.9 g/dL N 6.4-8.[address] [place] [address] [phone] Albumin 4.9 g/dL N 3.2-5.2 Globulin 2.0 g/dL N 2-4 Albumin/Globulin Ratio 2.5 N 1-3 Total Bilirubin 0.40 mg/dL N 0.2-1.0 Direct Bilirubin 0.00 mg/dL Low 0.03-0.18 Alkaline Phosphatase 72 U/L N 34-104 Alt 191 U/L High 7-52 Ast 65 U/L High 13-39 Laboratory test 08/14/2018 [facility] Erythrocyte Sed 8 mm/Hr N 0-[address] [place] [address] [phone] C Reactive Protein 3.71 mg/L N <8.01 Aldolase 13.5 U/L Abnormal <7.7 27 Creatine Kinase(CK) 180 U/L N 10-223 Arthritis Panel 06/29/2018 [facility] Uric Acid 7.0 mg/dL N 4.4-7.[address] [place] [address] [phone] Rheumatoid Factor < 10 IU/mL N <15 Erythrocyte Sed Rate 9 mm/Hr N 0-14 Anti-Nuclear Antibody 1.3 U High 28 Cyclic Citrullinated Peptide <15.6 U 29 Interpretation See Comment 30 Laboratory test 06/29/2018 [facility] Lyme Disease Negative Negative [address] [place] [address] [phone] Quantiferon Gold 04/04/2017 [facility] M tuberculosis Negative N Negative [address] [place] [address] [phone] TB Ag minus Nil Result 0.26 IU/mL N TB Mitogen minus Nil Result > 10.00 IU/mL N TB Nil Result 0.04 IU/mL N 33 Lipid Profile 01/24/2017 [facility] Triglycerides 65 mg/dL N 34 (Trig/Chol/HDL) [address] [place] [address] [phone] Cholesterol 144 mg/dL N 35 HDL Cholesterol 48.6 mg/dL N 36 LDL Cholesterol 82 mg/dL N 37 Comp Metabolic Panel 01/24/2017 [facility] Sodium 137 mmol/L N 133-[address] [place] [address] [phone] Potassium 4.3 mmol/L N 3.5-5.0 Chloride 102 [...] N >60 38 CBC Auto Diff 01/24/2017 [facility] White Blood 7.1 10^3/uL N 3.5-10.[address] [place] [address] [phone] Red Blood Count 4.35 10^6/uL N 4.0-5.4 [...] Cells % 0.1 N Laboratory test 01/24/2017 [facility] TSH (Thyroid 1.90 mcIU/mL N 0.34-5.60 [address] Stim Horm) [place] [address] [phone] CBC Auto Diff 07/28/2016 [facility] White Blood 7.1 10^3/uL N 3.5-10.[address] [place] [address] [phone] Red Blood Count 4.30 10^6/uL N 4.0-5.4 [...] Cells % 0 N Liver Function 07/28/2016 [facility] Total Protein 7.3 g/dL N 6.4-8.[address] [place] [address] [phone] Albumin 4.7 g/dL N 3.2-5.2 Globulin 2.6 g/dL N 2-4 Albumin/Globulin Ratio 1.8 N 1-3 Total Bilirubin 0.40 mg/dL N 0.2-1.0 Direct Bilirubin 0.10 mg/dL N 0.03-0.18 Indirect Bilirubin 0.3 mg/dL N 0.3-1.0 Alkaline Phosphatase 50 U/L N 34-104 Alt 14 U/L N 7-52 Ast 12 U/L Low 13-39 Urinalysis Profile 11/09/2015 [facility] Urine Color Straw N [address] [place] [address] [phone] Urine Appearance Clear N Urine Specific Finley 1.009 Low 1.010-1.030 Urine pH 5.0 N 5-9 Urine Urobilinogen Negative N Negative Urine Ketones Negative N Negative Urine Protein Negative N Negative Urine Leukocytes Negative N Negative Urine Blood Negative N Negative Urine Nitrite Negative N Negative Urine Bilirubin Negative N Negative Urine Glucose Negative N Negative Ua Routine 10/08/2015 [facility] Ua Specific Finley 1.010 Ua PH 5 Ua Color light yellow Ua Appera clear Ua WBC negative Ua Protein negative Ua Glucose normal Ua Ketones negative Ua Bilirubin negative Ua Urobilinogen negative Ua Nitrite negative Ua Occult Blood trace HIV 1/2 AB 10/08/2015 [facility] HIV 1 2 Nonreactive N Nonreactive 40 Evaluation [address] [place] [address] [phone] Laboratory 10/08/2015 [facility] TSH (Thyroid 1.25 ?IU/mL N 0.34-5.60 test finding [address] Stim Horm) [place] [address] [phone] CBC Auto Diff 10/08/2015 [facility] White Blood 9.2 10^3/uL N 3.5-10.8 [address] [place] [address] [phone] Red Blood Count 4.52 10^6/uL N 4.0-5.4 [...] Blood Cells % 0 N GC/Chlamydia 10/08/2015 [facility] Chlamydia Negative N Negative Amplified Rna [address] [place] [address] [phone] Neisseria gonorrhoeae (GC) Rna Negative N Negative Basic Metabolic Panel 10/08/2015 [facility] Sodium 137 mmol/L N 133-[address] [place] [address] [phone] Potassium 4.4 mmol/L N 3.5-5.0 Chloride 100 [...] developed and its performance characteristics determined by [facility] in a manner consistent with CLIA requirements. This test has not been cleared or approved by the U.S. Food and Drug Administration. Test Performed by: [facility] - [address] [address] 2 REFERENCE VALUE <4.0 (Negative) Test Performed by: [facility] [place] [address] 3 Negative serology. Celiac disease unlikely. However, approximately 10% of patients with celiac disease are seronegative. Also, patients who are already adhering to a gluten-free diet may be seronegative. If celiac disease is highly clinically suspected, consider HLA-DQ typing. Test Performed by: [facility] - [address] [address] 4 REFERENCE VALUE 19.0 - 31.0 Test Performed by: [facility] - [address] [address] 5 Negative for cANCA and pANCA patterns by immunofluorescence. ADDITIONAL INFORMATION This test was developed and its performance characteristics determined by [facility] in a manner consistent with CLIA requirements. This test has not been cleared or approved by the U.S. Food and Drug Administration. Test Performed by: [facility] - [address] [address] 6 REFERENCE VALUE <15.0 (Negative) 7 REFERENCE VALUE <15.0 (Negative) Test Performed by: [facility] - [address] [address] 8 REFERENCE VALUE <15.0 (Negative) 9 REFERENCE VALUE <15.0 (Negative) Test Performed by: [facility] - [address] [address] 10 REFERENCE VALUE Not Applicable 11 RESULT: HLA-B27 antigen was not detected. ADDITIONAL INFORMATION Method: Flow Cytometry Performing Laboratory CLIA# [id number] Test Performed by: [facility] - [address] [address] 12 Test Performed by: [facility] - [address] [address] 13 REFERENCE VALUE <30.0 (Negative) Test Performed by: [facility] - [address] [address] 14 REFERENCE VALUE <1.0 (Negative) Test Performed by: [facility] - [address] [address] 15 ADDITIONAL INFORMATION This test was developed and its performance characteristics determined by [facility] in a manner consistent with CLIA requirements. This test has not been cleared or approved by the U.S. Food and Drug Administration. Test Performed by: [facility] - [facility] [address] [place] [address] 16 Normal Range 180 to 914 Indeterminate Range 145 to 180 Deficient Range <145 17 REFERENCE VALUE <1.0 (Negative) 18 REFERENCE VALUE <1.0 (Negative) Test Performed by: [facility] [place] [address] 19 <1:80 (Negative) REFERENCE VALUE <1:80 (Negative) Test Performed by: [facility] [place] [address] 20 REFERENCE VALUE <0.1 (Negative) Test Performed by: [facility] - [address] [address] 21 ADDITIONAL INFORMATION This test was developed and its performance characteristics determined by [facility] in a manner consistent with CLIA requirements. This test has not been cleared or approved by the U.S. Food and Drug Administration. Test Performed by: [facility] - [address] [address] 22 Test Performed by: [facility] - [address] [address] 23 Because ethnic data is not always [...] dialysis) 24 Test Performed by: [facility] - [address] [address] 25 REFERENCE VALUE 19.0 - 31.0 Test Performed by: [place] [id number] 26 [facility] Severe Sepsis and Septic Shock Management Bundle Measure requires all lactic acids initially measuring >2.0 mmol/L be repeated. 27 Test Performed by: [address] [address] 28 Interpretation: Weak Positive (1.1-2.9) REFERENCE VALUE <=1.0 (Negative) 29 REFERENCE VALUE <20.0 (Negative) 30 Tests for antibodies to dsDNA and PIERRE antigens are not performed automatically unless the JAZMÍN result is > or= 3.0 U. Studies performed at [facility] indicate that positive JAZMÍN results <3.0 U are rarely accompanied by positive second order tests. Test Performed by: [facility] [place] [address] 31 No evidence of antibodies to B. burgdorferi detected. False negative results may occur in recently infected patients (<=2 weeks) due to low or undetectable antibody levels to B. burgdorferi. If recent exposure is suspected, a second sample should be collected and tested in 2-4 weeks. Test Performed by: [place] [address] 32 No interferon-gamma response to M. tuberculosis antigens was detected. Infection with M. tuberculosis is unlikely. A negative result alone does not exclude infection with M. tuberculosis. For detailed information regarding test interpretation see: [email or web address] 33 Test Performed by: [facility] - [address] [address] 34 Desirable <150 Borderline high 150-199 High [...] dialysis) Procedures Date Code Description Status 12/16/2018 048855853 Bone Mineral Density Test Completed 10/03/2018 34453 Nerve Conduction 03-04 Studies Completed 07/30/2018 30597 Pulmonary Function><Bronchodil Completed 11/14/2017 41648 Removal Skin Tags Up To 15 Completed 01/15/2014 84776 EKG, Interpretation Only Completed Encounters Type Date Location Provider Dx Diagnosis Office Visit 12/26/2018 [facility] Win Wu MD L56.8 Oth acute skin 2:40p changes due to ultraviolet radiation L70.0 Acne vulgaris L91.8 Other hypertrophic disorders of the skin L85.3 Xerosis cutis L21.8 Other seborrheic dermatitis L30.9 Dermatitis, unspecified L50.3 Dermatographic urticaria Office Visit 12/09/2018 9:45a Orthopedic Karin M79.644 Pain in right Services Of Jeffery Pantoja finger(s) C.M.A. M79.645 Pain in left finger(s) M62.81 Muscle weakness (generalized) Office Visit 11/12/2018 3:20p [facility] Internal Jonathan Villagran R20.8 Other disturbances Chris Mcacbe M.D. of skin sensation Office Visit 11/01/2018 1:00p Rheumatology Ross R76.0 Raised antibody Services Of Dulce Maria Salgado M.D. titer R20.8 Other disturbances of skin sensation R14.0 Abdominal distension (gaseous) R42 Dizziness and giddiness Office Visit 10/29/2018 [facility] G[facility] Winnie R14.0 Abdominal 1:00p KYM Donato distension (gaseous) Office Visit 10/01/2018 Rheumatology Services Ross M79.10 Myalgia, 1:00p Of Dulce Maria Salgado M.D. unspecified site R68.2 Dry mouth, unspecified R07.0 Pain in throat R76.0 Raised antibody titer R20.8 Other disturbances of skin sensation R74.8 Abnormal levels of other serum enzymes Office Visit 09/16/2018 [facility] Yoel Vazquez K76.89 Other specified 2:30p MD Yousuf diseases of liver K21.9 Gastro-esophageal reflux disease without esophagitis M79.10 Myalgia, unspecified site R68.2 Dry mouth, unspecified Office Visit 08/20/2018 10:00a [facility] Clay Villagran M79.10 Myalgia, Chris Mccabe M.D. unspecified site Catal[place] R32 Unspecified urinary incontinence Office Visit 08/14/2018 11:40a [facility] Clay Villagran M79.10 Myalgia, Chris Mccabe M.D. 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 unspecified Catal[place] R07.0 Pain in throat K21.9 Gastro-esophageal reflux disease without esophagitis Office 07/01/2018 [facility] Winnie K21.9 Gastro-esophageal Visit 10:45a KYM Donato reflux disease without esophagitis F41.9 Anxiety disorder, unspecified Office Visit 06/27/2018 1:00p Orthopedic Karin Pantoja, M25.531 Pain in Services Of Terrance Gil right wrist M25.532 Pain in left wrist Office Visit 06/04/2018 11:40a [facility] Jonathan Villagran S40.021A Contusion of Chris Mccabe M.D. right upper arm, [place] initial encounter S80.11xA Contusion of right lower leg, initial encounter M54.5 Low back pain Office Visit 06/03/2018 1:10p [facility] Win Wu, L70.0 Acne vulgaris MD Office Visit 05/29/2018 10:20a [facility] Jonathan Villagran L98.9 Disorder of the Chris Mccabe M.D. 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 skin and [place] subcutaneous tissue, unspecified Office Visit 07/13/2017 11:20a [facility] Jonathan Villagran H93.13 Tinnitus, Chris Mccabe M.D. bilateral [place] Z23 Encounter for immunization Office Visit 01/23/2017 2:40p [facility] Clay Villagran F31.9 Bipolar disorder, Chris Mccabe M.D. unspecified [place] Z13.220 Encounter for screening for lipoid disorders Z13.1 Encounter for screening for diabetes mellitus R53.83 Other fatigue Office Visit 12/28/2016 3:40p [facility] Jonathan Villagran Z02.89 Encounter for other Chris Mccabe M.D. administrative [place] examinations F31.9 Bipolar disorder, unspecified Office Visit 07/28/2016 11:00a [facility] Internal Cristo K06.8 Oth disrd of Chris Thao M.D. gingiva and [place] edentulous alveolar ridge F31.9 Bipolar disorder, unspecified Office Visit 01/07/2016 1:00p [facility] Cristo Thao, R30.0 Dysuria Jeffery Office Visit 10/08/2015 1:00p [facility] Cristo Thao, R30.0 Dysuria M.Rob R41.840 Attention and concentration deficit F31.9 Bipolar disorder, unspecified Plan of Treatment Future Appointment(s):02/27/2019 1:00 pm - Winnie Donato NP at [id number]/28/2019 10:00 am - Charan Domingo M.D. at [facility]12/27/2018 - Winnie Donato, NPR19.7 Diarrhea, unspecified
[2019-01-15 16:08] LABS: ABS Eosinophils 0.1 10^3/ul (0-0.6); ABS Lymphocytes 1.7 10^3/ul (1.0-4.8); ABS Monocytes 0.4 10^3/ul (0-0.8); ABS Neutrophils 7.3 10^3/ul (1.5-7.7); Eosinophil % 0.6 %; Hematocrit 41 % (42-52); Lymphocyte % 17.9 %; Mean Corpuscular HGB Conc 35 g/dL (31-36); Mean Corpuscular Hemoglobin 32 pg (27-31); Mean Corpuscular Volume 94 fL (80-94); Mean Platelet Volume 8.6 fL (7.4-10.4); Nucleated Red Blood Cells % 0.1; Platelet Count 317 10^3/uL (150-450); Red Blood Count 4.32 10^6 /uL (4.18-5.48); Red Cell Distribution Width 13 % (10.5-15); White Blood Count 9.5 10^3/uL (3.5-10.8)
[2019-01-15 16:27] LABS: ALT 76 U/L (7-52); AST 33 U/L (13-39); Albumin 4.5 g/dL (3.2-5.2); Albumin/Globulin Ratio 1.7 (1-3); Alkaline Phosphatase 70 U/L (34-104); Anion Gap 10 mmol/L (2-11); BUN/Creatinine Ratio 14.4 (8-20); Blood Urea Nitrogen 16 mg/dL (6-24); CO2 Carbon Dioxide 24 mmol/L (22-32); Calcium 9.6 mg/dL (8.6-10.3); Chloride 104 mmol/L (101-111); EGFR African American 89.2 (>60); EGFR Non-African American 73.7 (>60); Globulin 2.6 g/dL (2-4); Glucose 187 mg/dL (70-100); Potassium 3.5 mmol/L (3.5-5.0); Sodium 138 mmol/L (135-145); Total Protein 7.1 g/dL (6.4-8.9)
[2019-01-15 16:56] LABS: Alcohol < 10 mg/dL (<10); Salicylate < 2.50 mg/dL (<30)
--- NOTE | 2019-01-15 17:08 | ED ---
Psychiatric Complaint - HPI Summary HPI Summary: Patient arrives via ambulance. tangential thoughts. Scattered thoughts. Unable to obtain a good history due to patient continuing to say how he is in the middle of a legal action against the hospital and of the psychiatrists. As I approached the room, patient states "I keep having erections interactions are bad." I made a shrine to my erections." He then asks if I want to see his "brown penis" and makes inappropriate gestures and comments. He is unable to state why he is here in the ED and continues to have tangential thoughts and mentions his many lawsuits and how "the hospital wants to control my mental illness." He denies any SI or HI. Denies any self-harm. - History Of Current Complaint Chief Complaint: EDMentalHealth Time Seen by Provider: 01/15/19 15:11 Hx Obtained From: Patient Onset/Duration: Sudden Onset Timing: Constant Severity Initially: Moderate Severity Currently: Moderate Aggravating Factor(s): Nothing Alleviating Factor(s): Nothing - Risk Factor(s) Completed Suicide Risk Factors: Negative - Allergies/Home Medications Allergies/Adverse Reactions: Allergies Allergy/AdvReac Type Severity Reaction Status Date / Time No Known Allergies Allergy Verified 06/25/18 11:37 Home Medications: Home Medications Diclofenac 1% GEL (NF) [Voltaren 1% GEL (NF)] 1 applic TOPICAL BID PRN 01/15/19 [History Confirmed 01/15/19] Pantoprazole TAB (NF) [Protonix TAB (NF)] 20 mg PO DAILY 01/15/19 [History Confirmed 01/15/19] Tamsulosin CAP* [Flomax CAP*] 0.4 mg PO DAILY 01/15/19 [History Confirmed ] PMH/Surg Hx/FS Hx/Imm Hx Previously Healthy: Yes Endocrine/Hematology History: Denies: Hx Diabetes Musculoskeletal History: Reports: Hx Back Problems Denies: Hx Osteoporosis Sensory History: Denies: Hx Legally Blind Opthamlomology History: Denies: Hx Legally Blind Psychiatric History: Reports: Hx Depression, Hx Inpatient Treatment, Hx Community Mental Health Tx, Hx of Violent Episodes Against Others Denies: Hx Eating Disorder - Surgical History Surgery Procedure, Year, and Place: none - Immunization History Hx Pertussis Vaccination: No Immunizations Up to Date: Yes Infectious Disease History: No Infectious Disease History: Denies: Traveled Outside the [place] in Last 30 Days - Family History Known Family History: Positive: Non-Contributory Family History: patient does not wish to provide family hx at this time - Social History Occupation: Unemployed Lives: With Family Alcohol Use: None Hx Substance Use: No Substance Use Type: Reports: None Hx Tobacco Use: No Smoking Status (MU): Unknown if Ever Smoked Review of Systems Constitutional: Negative Negative: Fever, Chills, Fatigue, Skin Diaphoresis Negative: Sore Throat Negative: Palpitations, Chest Pain Negative: Cough Genitourinary: Negative Positive: no symptoms reported, see HPI, other - reports frequent erections Skin: Negative Neurological: Negative All Other Systems Reviewed And Are Negative: Yes Physical Exam Triage Information Reviewed: Yes Vital Signs On Initial Exam: Initial Vitals Temp Pulse Resp BP Pulse Ox 99.1 F 146 18 186/119 98 01/15/19 15:05 01/15/19 15:05 01/15/19 15:05 01/15/19 15:05 01/15/19 15:05 Vital Signs Reviewed: Yes Appearance: Positive: Well-Appearing, Well-Nourished Skin: Positive: Warm, Skin Color Reflects Adequate Perfusion Head/Face: Positive: Normal Head/Face Inspection Eyes: Positive: EOMI, Conjunctiva Clear Neck: Positive: No Lymphadenopathy Respiratory/Lung Sounds: Positive: Clear to Auscultation, Breath Sounds Present Cardiovascular: Positive: Pulses are Symmetrical in both Upper and Lower Extremities Musculoskeletal: Positive: Strength/ROM Intact Psychiatric: Positive: Patient Uncooperative for Exam - unable to obtain history and ROS Diagnostics - Vital Signs Vital Signs Temp Pulse Resp BP Pulse Ox 01/15/19 15:05 99.1 F 146 18 186/119 98 - Laboratory Lab Results: Lab Results 01/15/19 01/15/19 Range/Units 15:58 15:58 WBC 9.5 (3.5-10.8) 10^3/uL RBC 4.32 (4.18-5.48) 10^6 /uL Hgb 14.0 (14.0-18.0) g/dL Hct 41 L (42-52) % MCV 94 (80-94) fL MCH 32 H (27-31) pg MCHC 35 (31-36) g/dL RDW 13 (10.5-15) % Plt Count 317 (150-450) 10^3/uL MPV 8.6 (7.4-10.4) fL Neut % (Auto) 76.8 % Lymph % (Auto) 17.9 % [place] % (Auto) 4.2 % Eos % (Auto) 0.6 % Baso % (Auto) 0.5 % Absolute Neuts (auto) 7.3 (1.5-7.7) 10^3/ul Absolute Lymphs (auto) 1.7 (1.0-4.8) 10^3/ul Absolute Monos (auto) 0.4 (0-0.8) 10^3/ul Absolute Eos (auto) 0.1 (0-0.6) 10^3/ul Absolute Basos (auto) 0.0 (0-0.2) 10^3/ul Absolute Nucleated RBC 0.0 10^3/ul Nucleated RBC % 0.1 Sodium 138 (135-145) mmol/L Potassium 3.5 (3.5-5.0) mmol/L Chloride 104 (101-111) mmol/L Carbon Dioxide 24 (22-32) mmol/L Anion Gap 10 (2-11) mmol/L BUN 16 (6-24) mg/dL Creatinine 1.11 (0.67-1.17) mg/dL Est GFR ( Amer) 89.2 (>60) Est GFR (Non-Af Amer) 73.7 (>60) BUN/Creatinine Ratio 14.4 (8-20) Glucose 187 H (70-100) mg/dL Calcium 9.6 (8.6-10.3) mg/dL Total Bilirubin 0.40 (0.2-1.0) mg/dL AST 33 (13-39) U/L ALT 76 H (7-52) U/L Alkaline Phosphatase 70 (34-104) U/L Total Protein 7.1 (6.4-8.9) g/dL Albumin 4.5 (3.2-5.2) g/dL Globulin 2.6 (2-4) g/dL Albumin/Globulin Ratio 1.7 (1-3) TSH Pending Salicylates < 2.50 (<30) mg/dL Acetaminophen Pending Serum Alcohol < 10 (<10) mg/dL Result Diagrams: 01/15/19 15:58 01/15/19 15:58 Lab Statement: Any lab studies that have been ordered have been reviewed, and results considered in the medical decision making process. Course/Dx - Course Course Of Treatment: Labs obtained are WNL. He is cleared for mental health evaluation at 5:05 PM. Patient denies any pain. He is signed out to Satnam Chapin PA-C. - Differential Dx/Clinical Impression Differential Diagnosis/HQI/PQRI: Positive: Anxiety, Bipolar Disorder, Schizophrenia Provider Diagnosis: Unspecified psychosis Discharge - Sign-Out/Discharge Documenting (check all that apply): Patient Departure All imaging exams completed and their final reports reviewed: No Patient Received Moderate/Deep Sedation with Procedure: No - Discharge Plan Condition: Fair Disposition: [place]CHIATRIC FAC[place] [place] Billing Disposition and Condition Condition: FAIR Disposition: Psychiatric Facility [facility] [place]
[2019-01-15 17:09] LABS: TSH (Thyroid Stimulating Horm) 0.86 mcIU/mL (0.34-5.60)
[2019-01-15 17:11] LABS: Acetaminophen < 15 mcg/mL
[2019-01-15 17:51] LABS: Urine Appearance Clear; Urine Bacteria Absent (Absent); Urine Bilirubin Negative (Negative); Urine Blood 1+ (Negative); Urine Color Yellow; Urine Glucose Negative (Negative); Urine Ketones Negative (Negative); Urine Nitrite Negative (Negative); Urine Protein Negative (Negative); Urine Red Blood Cell 1+(3-5/hpf) (Absent); Urine Specific Gravity 1.014 (1.010-1.030); Urine Squamous Epithelial Cell Present (Absent); Urine Urobilinogen Negative (Negative); Urine White Blood Cell Trace(0-5/hpf) (Absent)
[2019-01-15 18:09] LABS: Urine Benzodiazepine Screen None Detected (None Detect); Urine Opiates Screen Presumptive Positive (None Detect)
--- NOTE | 2019-01-15 22:02 | PN ---
Progress Note - Progress Note Date of Service: 01/15/19 Note: Patient signed out to me by Gary ROSAS pending mental health evaluation. Per psychiatrist Dr. Garcia, patient is involuntary [place] [facility] [place] in [place] condition with diagnosis of psychosis NOS.
[2019-01-15] MEDS ORDERED: Al Hydrox/Mg Hydrox/Simet LIQ* 30 ML UDC PO PRN (22:09)
[2019-01-15] MEDS ORDERED: Acetaminophen TAB* 325 MG PO PRN (22:09)
[2019-01-15] MEDS: Haloperidol TAB* 5 MG PO PRN (23:15)
[2019-01-15] MEDS: LORazepam TAB(*) 1 MG PO PRN (23:15)
[2019-01-16] MEDS: Multivitamins/Minerals TAB PO SCH (08:21)
[2019-01-16 08:38] LABS: HDL Cholesterol 47.5 mg/dL
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
[2019-01-16] MEDS: Divalproex ER TAB(*) 500 MG PO SCH ×2 (11:12→21:51)
[2019-01-16] MEDS: ARIPiprazole TAB* 5 MG PO SCH (11:12)
[2019-01-16] MEDS: Haloperidol TAB* 5 MG PO PRN (11:13)
[2019-01-16] MEDS: LORazepam TAB(*) 1 MG PO PRN (11:14)
[2019-01-17] MEDS: ARIPiprazole TAB* 5 MG PO SCH (09:51)
[2019-01-17] MEDS: Multivitamins/Minerals TAB PO SCH (09:51)
[2019-01-17] MEDS: Divalproex ER TAB(*) 500 MG PO SCH ×2 (09:51→22:04)
--- NOTE | 2019-01-17 13:37 | PN ---
Subjective - Subjective Date of Service: 01/17/19 Service Type: 05087 Hosp care 35 min high complexity Subjective: Nursing Report: Patient disrespectful to staff, patient took haldol and ativan , not attending group activities. CC: " You have macaroni teeth" Patient was seen and evaluated in the common room. The patient said " my penis is brown but I am white, how does that happen, is it because you talk to those other doctors that delivery babies? I can have a erection for 120 minutes and masturbate and throw my semen in the trash. I went to the urologist and this was approved. " Per staff the patient has been making disrespectful comments to patients and staff. Objective - General Observations Appearance: Disheveled Appears Stated Age: Yes Stature: Overweight Posture: Slumped Eye Contact: Avoidant Behavior/Activity: Accelerated - Interaction Observations Attitude Towards Examiner: Defensive, Disrespectful Stated Mood: Elevated Affect: Labile Speech Pattern/Tone: Rambling Thought Process: Loose Associations Thought Content: Paranoid Thought Process: Lethality: Paranoid Ideation Hallucination Type: None Delusion Type: None - Cognitive Function Orientation: A&O x 4 Level of Consciousness: Awake Ability to Make Reasonable Decisions: Serverely Impaired - Medication Compliance Cooperative with Inpatient Medication Regimen: No - Group Participation Participates in Group Activities: No Assessment - Assessment Merits Inpatient Hospitalization: For Immediate Safety Clinical Impression: 38 year old male with a history of schizoaffective disorder currently paranoid and delusional and lacks insight into treatment needs. Plan - Plan Treatment Plan: Name: GARY WARD Birthdate: 1980 [id number] #Q15 minute observation. # The patient requires inpatient admission at this time to assure safety, receive treatment and work toward stabilization. # Refused EKG # Medicine contacted about strep B urine culture and no further recommendation was made # Patient refusing release for collateral information. # Social Work on board # Treatment over objection will be filed Sunday if patient is non-compliant with medications over the weekend # Increase abilify to 15mg daily #Valproic acid level for Sunday #Goals before discharge include: To eliminate/ reduce psychotic symptoms Sodium 138 mmol/L (135-145) 01/15/19 15:58 Potassium 3.5 mmol/L (3.5-5.0) 01/15/19 15:58 BUN 16 mg/dL (6-24) 01/15/19 15:58 Creatinine 1.11 mg/dL (0.67-1.17) 01/15/19 15:58 Hemoglobin A1c 5.4 % (4.0-5.6) 01/16/19 08:02 Calcium 9.6 mg/dL (8.6-10.3) 01/15/19 15:58 AST 33 U/L (13-39) 01/15/19 15:58 ALT 76 U/L (7-52) H 01/15/19 15:58 Triglycerides 92 mg/dL 01/16/19 08:02 Cholesterol 184 mg/dL 01/16/19 08:02 LDL Cholesterol 118 mg/dL 01/16/19 08:02 Vital Signs Temp Pulse Resp BP Pulse Ox 98.6 F 90 16 132/78 99 01/17/19 08:00 01/17/19 08:00 01/17/19 13:18 01/17/19 08:00 01/17/19 08:00 Continued Medication Management: Continue Outpt Medication Medications: Current Medications Acetaminophen (Tylenol Tab*) 650 mg PO Q4H PRN PRN Reason: PAIN; OR TEMP >101 Al Hydrox/Mg Hydrox/Simethicone (Maalox Plus*) 30 ml PO Q4H PRN PRN Reason: INDIGESTION Aripiprazole (Abilify Tab*) 10 mg PO DAILY [facility] Last Admin: 01/17/19 09:51 Dose: 10 mg Divalproex Sodium (Depakote Er Tab(*)) 500 mg PO BID [facility] Last Admin: 01/17/19 09:51 Dose: 500 mg Haloperidol (Haldol Tab*) 5 mg PO Q6H PRN PRN Reason: AGITATION Last Admin: 01/16/19 11:13 Dose: 5 mg Lorazepam (Ativan Tab(*)) 2 mg PO Q6H PRN PRN Reason: ANXIETY Last Admin: 01/16/19 11:14 Dose: 2 mg Multivitamins/Minerals (Theragran/Minerals Tab*) 1 tab PO DAILY [facility] Last Admin: 01/17/19 09:51 Dose: 1 tab - Discharge Plan Discharge Plan: Inpatient Hospitalization
[2019-01-18] MEDS: Haloperidol TAB* 5 MG PO PRN (02:11)
[2019-01-18] MEDS: LORazepam TAB(*) 1 MG PO PRN (02:11)
[2019-01-18] MEDS: Multivitamins/Minerals TAB PO SCH (12:11)
[2019-01-18] MEDS: ARIPiprazole TAB* 15 MG PO SCH (12:11)
[2019-01-18] MEDS: Divalproex ER TAB(*) 500 MG PO SCH ×2 (12:11→22:09)
--- NOTE | 2019-01-18 13:13 | PN ---
Subjective - Subjective Date of Service: 01/18/19 Service Type: 69742 Hosp care 15 min low complexity Subjective: Martín is seen in weekend coverage for Dr. Alex. The patient is laying down in bed and does to get up or make much eye contact. He is guarded and litigious during our brief encounter. "I'm suing this place. You are giving me medications unlawfully here against my will instead of at home, where I should be. I've written logical proof that mental illness does not exist. I just haven't submitted it yet." Despite these sentiments, David has been taking scheduled medications as directed. He denies SI or HI. Objective - General Observations Appearance: Unkempt Appears Stated Age: Yes Stature: WNL Posture: WNL Eye Contact: Avoidant Behavior/Activity: Peculiar - Interaction Observations Attitude Towards Examiner: Dismissive Stated Mood: Dysphoric Affect: Restricted Speech Pattern/Tone: Perseverating Thought Process: Tangential Perception: WNL Thought Content: Paranoid Thought Process: Lethality: Paranoid Ideation Hallucination Type: None Delusion Type: Persecution - Cognitive Function Orientation: A&O x 4 Level of Consciousness: Awake Cognition: WNL Estimated Intelligence: Normal Insight: Difficulty Acknowledging Presence of Psyciatric Problems Judgment Within Normal Limits: No Ability to Make Reasonable Decisions: Serverely Impaired - Medication Compliance Cooperative with Inpatient Medication Regimen: Yes - Group Participation Participates in Group Activities: No Assessment - Assessment Merits Inpatient Hospitalization: For Immediate Safety, For Stabilization Inpatient DSM-V Dx: F25.0 Clinical Impression: 38 year old male with a history of schizoaffective disorder currently paranoid and delusional and lacks insight into treatment needs. Plan - Plan Treatment Plan: Name: MARTÍN WARD Birthdate: 1980 [id number] #Q15 minute observation. # The patient requires inpatient admission at this time to assure safety, receive treatment and work toward stabilization. # Refused EKG # Medicine contacted about strep B urine culture and no further recommendation was made # Patient refusing release for collateral information. # Social Work on board # Treatment over objection will be filed Sunday if patient is non-compliant with medications over the weekend # Increase abilify to 15mg daily #Valproic acid level for Sunday #Goals before discharge include: To eliminate/ reduce psychotic symptoms Sodium 138 mmol/L (135-145) 01/15/19 15:58 Potassium 3.5 mmol/L (3.5-5.0) 01/15/19 15:58 BUN 16 mg/dL (6-24) 01/15/19 15:58 Creatinine 1.11 mg/dL (0.67-1.17) 01/15/19 15:58 Hemoglobin A1c 5.4 % (4.0-5.6) 01/16/19 08:02 Calcium 9.6 mg/dL (8.6-10.3) 01/15/19 15:58 AST 33 U/L (13-39) 01/15/19 15:58 ALT 76 U/L (7-52) H 01/15/19 15:58 Triglycerides 92 mg/dL 01/16/19 08:02 Cholesterol 184 mg/dL 01/16/19 08:02 LDL Cholesterol 118 mg/dL 01/16/19 08:02 Vital Signs Temp Pulse Resp BP Pulse Ox 98.6 F 90 16 132/78 99 01/17/19 08:00 01/17/19 08:00 01/17/19 13:18 01/17/19 08:00 01/17/19 08:00 Continued Medication Management: Continue Outpt Medication Medications: Current Medications Acetaminophen (Tylenol Tab*) 650 mg PO Q4H PRN PRN Reason: PAIN; OR TEMP >101 Al Hydrox/Mg Hydrox/Simethicone (Maalox Plus*) 30 ml PO Q4H PRN PRN Reason: INDIGESTION Aripiprazole (Abilify Tab*) 15 mg PO DAILY [facility] Last Admin: 01/18/19 12:11 Dose: 15 mg Divalproex Sodium (Depakote Er Tab(*)) 500 mg PO BID [facility] Last Admin: 01/18/19 12:11 Dose: 500 mg Haloperidol (Haldol Tab*) 5 mg PO Q6H PRN PRN Reason: AGITATION Last Admin: 01/18/19 02:11 Dose: 5 mg Lorazepam (Ativan Tab(*)) 2 mg PO Q6H PRN PRN Reason: ANXIETY Last Admin: 01/18/19 02:11 Dose: 2 mg Multivitamins/Minerals (Theragran/Minerals Tab*) 1 tab PO DAILY [facility] Last Admin: 01/18/19 12:11 Dose: 1 tab - Discharge Plan Discharge Plan: Inpatient Hospitalization Lab Results - Lab Results Lab Results: 01/15/19 01/15/19 01/15/19 15:58 15:58 17:35 WBC 9.5 RBC 4.32 Hgb 14.0 Hct 41 L MCV 94 MCH 32 H MCHC 35 RDW 13 Plt Count 317 MPV 8.6 Neut % (Auto) 76.8 Lymph % (Auto) 17.9 Swain % (Auto) 4.2 Eos % (Auto) 0.6 Baso % (Auto) 0.5 Absolute Neuts (auto) 7.3 Absolute Lymphs (auto) 1.7 Absolute Monos (auto) 0.4 Absolute Eos (auto) 0.1 Absolute Basos (auto) 0.0 Absolute Nucleated RBC 0.0 Nucleated RBC % 0.1 Sodium 138 Potassium 3.5 Chloride 104 Carbon Dioxide 24 Anion Gap 10 BUN 16 Creatinine 1.11 Est GFR ( Amer) 89.2 Est GFR (Non-Af Amer) 73.7 BUN/Creatinine Ratio 14.4 Glucose 187 H Hemoglobin A1c Calcium 9.6 Total Bilirubin 0.40 AST 33 ALT 76 H Alkaline Phosphatase 70 Total Protein 7.1 Albumin 4.5 Globulin 2.6 Albumin/Globulin Ratio 1.7 Triglycerides Cholesterol LDL Cholesterol HDL Cholesterol TSH 0.86 Urine Color Yellow Urine Appearance Clear Urine pH 7.0 Ur Specific [place] 1.014 Urine Protein Negative Urine Ketones Negative Urine Blood 1+ A Urine Nitrate Negative Urine Bilirubin Negative Urine Urobilinogen Negative Ur Leukocyte Esterase Negative Urine WBC (Auto) Trace(0-5/hpf) Urine RBC (Auto) 1+(3-5/hpf) A Ur Squamous Epith Cells Present A Urine Bacteria Absent Urine Glucose Negative Salicylates < 2.50 Urine Opiates Screen Acetaminophen < 15 Ur Barbiturates Screen Ur Phencyclidine Scrn Ur Amphetamines Screen U Benzodiazepines Scrn Urine Cocaine Screen U Cannabinoids Screen Serum Alcohol < 10 01/15/19 01/16/19 01/16/19 17:35 08:02 08:02 WBC RBC Hgb Hct MCV MCH MCHC RDW Plt Count MPV Neut % (Auto) Lymph % (Auto) Swain % (Auto) Eos % (Auto) Baso % (Auto) Absolute Neuts (auto) Absolute Lymphs (auto) Absolute Monos (auto) Absolute Eos (auto) Absolute Basos (auto) Absolute Nucleated RBC Nucleated RBC % Sodium Potassium Chloride Carbon Dioxide Anion Gap BUN Creatinine Est GFR ( Amer) Est GFR (Non-Af Amer) BUN/Creatinine Ratio Glucose Hemoglobin A1c 5.4 Calcium Total Bilirubin AST ALT Alkaline Phosphatase Total Protein Albumin Globulin Albumin/Globulin Ratio Triglycerides 92 Cholesterol 184 LDL Cholesterol 118 HDL Cholesterol 47.5 TSH Urine Color Urine Appearance Urine pH Ur Specific [place] Urine Protein Urine Ketones Urine Blood Urine Nitrate Urine Bilirubin Urine Urobilinogen Ur Leukocyte Esterase Urine WBC (Auto) Urine RBC (Auto) Ur Squamous Epith Cells Urine Bacteria Urine Glucose Salicylates Urine Opiates Screen Presumptive positive A Acetaminophen Ur Barbiturates Screen None detected Ur Phencyclidine Scrn None detected Ur Amphetamines Screen None detected U Benzodiazepines Scrn None detected Urine Cocaine Screen None detected U Cannabinoids Screen None detected Serum Alcohol
[2019-01-19] MEDS: ARIPiprazole TAB* 15 MG PO SCH (08:22)
[2019-01-19] MEDS: Multivitamins/Minerals TAB PO SCH (08:22)
[2019-01-19] MEDS: Divalproex ER TAB(*) 500 MG PO SCH ×2 (08:22→21:45)
[2019-01-20] MEDS: Multivitamins/Minerals TAB PO SCH (10:19)
[2019-01-20] MEDS: Divalproex ER TAB(*) 500 MG PO SCH ×2 (10:19→22:22)
[2019-01-20] MEDS: ARIPiprazole TAB* 15 MG PO SCH (10:19)
--- NOTE | 2019-01-20 12:52 | PN ---
Subjective - Subjective Date of Service: 01/20/19 Service Type: [id number] Hosp care 35 min high complexity Subjective: Nursing Report: Patient was visible on unit, Slept overnight without incident. He is not attending group activities. CC: "You are in the lawsuit" Patient was seen and evaluated in the common room. The patient reported that everything here is done unlawfully and that he filed a lawsuit against this principal technical writer. His reasons for refusing to get a long acting injection is that it is unlawful and points to a book titled "Business Law" . Patient was offered to be connected with the ACT team, and refused. He reported that he doesnt like to take medications because they make him have to get surgery on his stomach. Patient is refusing to harinder permission to speak with his parents Objective - General Observations Appears Stated Age: Yes Stature: WNL Posture: Slumped, Tense Eye Contact: Intense Behavior/Activity: Accelerated - Interaction Observations Attitude Towards Examiner: Uncooperative Stated Mood: Irritable Affect: Blunted Speech Pattern/Tone: Inappropriate Thought Process: Disorganized Thought Content: Paranoid Thought Process: Lethality: Paranoid Ideation Hallucination Type: None Delusion Type: Persecution - Cognitive Function Orientation: A&O x 4 Level of Consciousness: Awake Judgment Within Normal Limits: No Ability to Make Reasonable Decisions: Serverely Impaired - Medication Compliance Cooperative with Inpatient Medication Regimen: Partial - Group Participation Participates in Group Activities: No Assessment - Assessment Inpatient DSM-V Dx: F25.0 Clinical Impression: 38 year old male with a history of schizoaffective disorder currently paranoid and delusional and lacks insight into treatment needs. Plan - Plan Treatment Plan: Name: GARY WARD Birthdate: 1980 [id number] #Q15 minute observation. # The patient requires inpatient admission at this time to assure safety, receive treatment and work toward stabilization. # Patient refusing release for collateral information. # Social Work on board # Retention of Treatment court hearing on Sunday. Patient refused long acting injection and refused to be set up with ACT team. # Increase abilify to 20mg daily #Valproic acid level 97 #Goals before discharge include: To eliminate/ reduce psychotic symptoms Temp Pulse Resp BP Pulse Ox 95.7 F 97 16 138/84 100 01/20/19 08:00 01/20/19 08:00 01/20/19 08:00 01/20/19 08:00 01/20/19 08:00 01/20/19 06:47 Valproic Acid 97.0 Sodium 138 mmol/L (135-145) 01/15/19 15:58 Potassium 3.5 mmol/L (3.5-5.0) 01/15/19 15:58 BUN 16 mg/dL (6-24) 01/15/19 15:58 Creatinine 1.11 mg/dL (0.67-1.17) 01/15/19 15:58 Hemoglobin A1c 5.4 % (4.0-5.6) 01/16/19 08:02 Calcium 9.6 mg/dL (8.6-10.3) 01/15/19 15:58 AST 33 U/L (13-39) 01/15/19 15:58 ALT 76 U/L (7-52) H 01/15/19 15:58 Triglycerides 92 mg/dL 01/16/19 08:02 Cholesterol 184 mg/dL 01/16/19 08:02 LDL Cholesterol 118 mg/dL 01/16/19 08:02 Continued Medication Management: Continue Outpt Medication Medications: Current Medications Acetaminophen (Tylenol Tab*) 650 mg PO Q4H PRN PRN Reason: PAIN; OR TEMP >101 Al Hydrox/Mg Hydrox/Simethicone (Maalox Plus*) 30 ml PO Q4H PRN PRN Reason: INDIGESTION Aripiprazole (Abilify Tab*) 15 mg PO DAILY [facility] Last Admin: 01/20/19 10:19 Dose: 15 mg Divalproex Sodium (Depakote Er Tab(*)) 500 mg PO BID [facility] Last Admin: 01/20/19 10:19 Dose: 500 mg Haloperidol (Haldol Tab*) 5 mg PO Q6H PRN PRN Reason: AGITATION Last Admin: 01/18/19 02:11 Dose: 5 mg Lorazepam (Ativan Tab(*)) 2 mg PO Q6H PRN PRN Reason: ANXIETY Last Admin: 01/18/19 02:11 Dose: 2 mg Multivitamins/Minerals (Theragran/Minerals Tab*) 1 tab PO DAILY [facility] Last Admin: 01/20/19 10:19 Dose: 1 tab - Discharge Plan Discharge Plan: Inpatient Hospitalization
[2019-01-21] MEDS: Multivitamins/Minerals TAB PO SCH (08:19)
[2019-01-21] MEDS: Divalproex ER TAB(*) 500 MG PO SCH ×2 (08:20→21:51)
[2019-01-21] MEDS: ARIPiprazole TAB* 20 MG PO SCH (08:21)
--- NOTE | 2019-01-21 14:05 | PN ---
Subjective - Subjective Date of Service: 01/21/19 Service Type: 60397 Hosp care 35 min high complexity Subjective: Nursing Report: Patient was visible on unit, Slept overnight without incident. He is not attending group activities. CC: "Everything you do is a civil rights violation" Patient was seen and evaluated in the common room. The patient reported that he needs a copy of his lab results because that will prove everything that people do here is a civil rights violation. He reported that he wrote out legal papers and will show the court that it is unlawful for him to be here. Patient is refusing to harinder permission to speak with his parents Objective - General Observations Appears Stated Age: Yes Stature: WNL, Overweight Posture: Slumped Eye Contact: Avoidant Behavior/Activity: Accelerated - Interaction Observations Attitude Towards Examiner: Uncooperative Stated Mood: Dysphoric Affect: Blunted Speech Pattern/Tone: Inappropriate Thought Process: Coherent Perception: WNL Thought Content: Paranoid Thought Process: Lethality: Paranoid Ideation Hallucination Type: Auditory Delusion Type: Persecution - Cognitive Function Orientation: A&O x 4 Level of Consciousness: Awake Judgment Within Normal Limits: No Ability to Make Reasonable Decisions: Serverely Impaired - Medication Compliance Cooperative with Inpatient Medication Regimen: Partial - Group Participation Participates in Group Activities: No Assessment - Assessment Merits Inpatient Hospitalization: For Immediate Safety Inpatient DSM-V Dx: F25.0 Clinical Impression: 38 year old male with a history of schizoaffective disorder currently paranoid and delusional and lacks insight into treatment needs. Plan - Plan Treatment Plan: Name: GARY WARD Birthdate: 1980 [id number] #Q15 minute observation. # The patient requires inpatient admission at this time to assure safety, receive treatment and work toward stabilization. # Patient refusing release for collateral information. # Social Work on board # Retention of Treatment court hearing on Sunday. # Continue abilify to 20mg daily #Valproic acid level 97 #Goals before discharge include: To eliminate/ reduce psychotic symptoms # Patient refused Aristada long acting injection and refused to be set up with ACT team. TOO paperwork completed 01/20/19 06:47 Valproic Acid 97.0 Vital Signs Temp Pulse Resp BP Pulse Ox 98.1 F 81 16 136/84 100 01/21/19 09:16 01/21/19 09:16 01/21/19 11:16 01/21/19 09:16 01/21/19 09:16 Laboratory Results WBC 9.5 10^3/uL (3.5-10.8) 01/15/19 15:58 RBC 4.32 10^6 /uL (4.18-5.48) 01/15/19 15:58 Hgb 14.0 g/dL (14.0-18.0) 01/15/19 15:58 Hct 41 % (42-52) L 01/15/19 15:58 MCV 94 fL (80-94) 01/15/19 15:58 MCH 32 pg (27-31) H 01/15/19 15:58 MCHC 35 g/dL (31-36) 01/15/19 15:58 RDW 13 % (10.5-15) 01/15/19 15:58 Plt Count 317 10^3/uL (150-450) 01/15/19 15:58 MPV 8.6 fL (7.4-10.4) 01/15/19 15:58 Neut % (Auto) 76.8 % 01/15/19 15:58 Lymph % (Auto) 17.9 % 01/15/19 15:58 Bibb % (Auto) 4.2 % 01/15/19 15:58 Eos % (Auto) 0.6 % 01/15/19 15:58 Baso % (Auto) 0.5 % 01/15/19 15:58 Absolute Neuts (auto) 7.3 10^3/ul (1.5-7.7) 01/15/19 15:58 Absolute Lymphs (auto) 1.7 10^3/ul (1.0-4.8) 01/15/19 15:58 Absolute Monos (auto) 0.4 10^3/ul (0-0.8) 01/15/19 15:58 Absolute Eos (auto) 0.1 10^3/ul (0-0.6) 01/15/19 15:58 Absolute Basos (auto) 0.0 10^3/ul (0-0.2) 01/15/19 15:58 Absolute Nucleated RBC 0.0 10^3/ul 01/15/19 15:58 Nucleated RBC % 0.1 01/15/19 15:58 Sodium 138 mmol/L (135-145) 01/15/19 15:58 Potassium 3.5 mmol/L (3.5-5.0) 01/15/19 15:58 Chloride 104 mmol/L (101-111) 01/15/19 15:58 Carbon Dioxide 24 mmol/L (22-32) 01/15/19 15:58 Anion Gap 10 mmol/L (2-11) 01/15/19 15:58 BUN 16 mg/dL (6-24) 01/15/19 15:58 Creatinine 1.11 mg/dL (0.67-1.17) 01/15/19 15:58 Est GFR ( Amer) 89.2 (>60) 01/15/19 15:58 Est GFR (Non-Af Amer) 73.7 (>60) 01/15/19 15:58 BUN/Creatinine Ratio 14.4 (8-20) 01/15/19 15:58 Glucose 187 mg/dL (70-100) H 01/15/19 15:58 Hemoglobin A1c 5.4 % (4.0-5.6) 01/16/19 08:02 Calcium 9.6 mg/dL (8.6-10.3) 01/15/19 15:58 Total Bilirubin 0.40 mg/dL (0.2-1.0) 01/15/19 15:58 AST 33 U/L (13-39) 01/15/19 15:58 ALT 76 U/L (7-52) H 01/15/19 15:58 Alkaline Phosphatase 70 U/L (34-104) 01/15/19 15:58 Total Protein 7.1 g/dL (6.4-8.9) 01/15/19 15:58 Albumin 4.5 g/dL (3.2-5.2) 01/15/19 15:58 Globulin 2.6 g/dL (2-4) 01/15/19 15:58 Albumin/Globulin Ratio 1.7 (1-3) 01/15/19 15:58 Triglycerides 92 mg/dL 01/16/19 08:02 Cholesterol 184 mg/dL 01/16/19 08:02 LDL Cholesterol 118 mg/dL 01/16/19 08:02 HDL Cholesterol 47.5 mg/dL 01/16/19 08:02 TSH 0.86 mcIU/mL (0.34-5.60) 01/15/19 15:58 Urine Color Yellow 01/15/19 17:35 Urine Appearance Clear 01/15/19 17:35 Urine pH 7.0 (5-9) 01/15/19 17:35 Ur Specific [place] 1.014 (1.010-1.030) 01/15/19 17:35 Urine Protein Negative (Negative) 01/15/19 17:35 Urine Ketones Negative (Negative) 01/15/19 17:35 Urine Blood 1+ (Negative) A 01/15/19 17:35 Urine Nitrate Negative (Negative) 01/15/19 17:35 Urine Bilirubin Negative (Negative) 01/15/19 17:35 Urine Urobilinogen Negative (Negative) 01/15/19 17:35 Ur Leukocyte Esterase Negative (Negative) 01/15/19 17:35 Urine WBC (Auto) Trace(0-5/hpf) (Absent) 01/15/19 17:35 Urine RBC (Auto) 1+(3-5/hpf) (Absent) A 01/15/19 17:35 Ur Squamous Epith Cells Present (Absent) A 01/15/19 17:35 Urine Bacteria Absent (Absent) 01/15/19 17:35 Urine Glucose Negative (Negative) 01/15/19 17:35 Salicylates < 2.50 mg/dL (<30) 01/15/19 15:58 Urine Opiates Screen Presumptive positive (None Detect) A 01/15/19 17:35 Acetaminophen < 15 mcg/mL 01/15/19 15:58 Ur Barbiturates Screen None detected (None Detect) 01/15/19 17:35 Valproic Acid 97.0 mcg/mL (50-100) 01/20/19 06:47 Ur Phencyclidine Scrn None detected (None Detect) 01/15/19 17:35 Ur Amphetamines Screen None detected (None Detect) 01/15/19 17:35 U Benzodiazepines Scrn None detected (None Detect) 01/15/19 17:35 Urine Cocaine Screen None detected (None Detect) 01/15/19 17:35 U Cannabinoids Screen None detected (None Detect) 01/15/19 17:35 Serum Alcohol < 10 mg/dL (<10) 01/15/19 15:58 Continued Medication Management: Continue Outpt Medication Medications: Current Medications Acetaminophen (Tylenol Tab*) 650 mg PO Q4H PRN PRN Reason: PAIN; OR TEMP >101 Al Hydrox/Mg Hydrox/Simethicone (Maalox Plus*) 30 ml PO Q4H PRN PRN Reason: INDIGESTION Aripiprazole (Abilify Tab*) 20 mg PO DAILY [facility] Last Admin: 01/21/19 08:21 Dose: 20 mg Divalproex Sodium (Depakote Er Tab(*)) 500 mg PO BID [facility] Last Admin: 01/21/19 08:20 Dose: 500 mg Haloperidol (Haldol Tab*) 5 mg PO Q6H PRN PRN Reason: AGITATION Last Admin: 01/18/19 02:11 Dose: 5 mg Lorazepam (Ativan Tab(*)) 2 mg PO Q6H PRN PRN Reason: ANXIETY Last Admin: 01/18/19 02:11 Dose: 2 mg Multivitamins/Minerals (Theragran/Minerals Tab*) 1 tab PO DAILY [facility] Last Admin: 01/21/19 08:19 Dose: 1 tab - Discharge Plan Discharge Plan: Inpatient Hospitalization
[2019-01-21] MEDS ORDERED: Aripiprazole LAUROXIL 1,064 MG/3.9 ML SYRINGE IM ONE (14:13)
--- NOTE | 2019-01-22 08:48 | PN ---
Subjective - Subjective Date of Service: 01/22/19 Service Type: 55858 Hosp care 35 min high complexity Subjective: Nursing Report: Patient was visible on unit, Slept overnight without incident. He is not attending group activities. CC: "I will go to court and aly you" Patient was seen and evaluated in the common room. The patient reported that he will aly this magnetic tape typewriter operator in court today, and go home and sleep in his bed where he should be. He continued to refuse long acting injection medication. He reported that he spent all night doing legal paperwork and that when he leaves he will be discovering scientific discovery with his research. Objective - General Observations Appears Stated Age: Yes Stature: WNL Posture: Slumped Eye Contact: Avoidant Behavior/Activity: Accelerated - Interaction Observations Attitude Towards Examiner: Uncooperative, Mistrustful Stated Mood: Dysphoric Affect: Restricted Speech Pattern/Tone: Perseverating Thought Process: Loose Associations Perception: WNL Thought Content: Paranoid Thought Process: Lethality: Paranoid Ideation Hallucination Type: None Delusion Type: Grandeur - Cognitive Function Orientation: A&O x 4 Level of Consciousness: Awake Cognition: WNL Ability to Make Reasonable Decisions: Serverely Impaired - Medication Compliance Cooperative with Inpatient Medication Regimen: Partial - Group Participation Participates in Group Activities: No Assessment - Assessment Inpatient DSM-V Dx: F25.0 Clinical Impression: 38 year old male with a history of schizoaffective disorder currently paranoid and delusional and lacks insight into treatment needs. Plan - Plan Treatment Plan: Name: GARY WARD Birthdate: 1980 [id number] #Q15 minute observation. # The patient requires inpatient admission at this time to assure safety, receive treatment and work toward stabilization. # Patient refusing release for collateral information. # Social Work on board # Retention of Treatment court hearing on Sunday. # Continue abilify to 20mg daily #Valproic acid level 97 #Goals before discharge include: To eliminate/ reduce psychotic symptoms # Patient refused Aristada long acting injection and refused to be set up with ACT team. TOO paperwork completed 01/20/19 06:47 Valproic Acid 97.0 Laboratory Results WBC 9.5 10^3/uL (3.5-10.8) 01/15/19 15:58 RBC 4.32 10^6 /uL (4.18-5.48) 01/15/19 15:58 Hgb 14.0 g/dL (14.0-18.0) 01/15/19 15:58 Hct 41 % (42-52) L 01/15/19 15:58 MCV 94 fL (80-94) 01/15/19 15:58 MCH 32 pg (27-31) H 01/15/19 15:58 MCHC 35 g/dL (31-36) 01/15/19 15:58 RDW 13 % (10.5-15) 01/15/19 15:58 Plt Count 317 10^3/uL (150-450) 01/15/19 15:58 MPV 8.6 fL (7.4-10.4) 01/15/19 15:58 Neut % (Auto) 76.8 % 01/15/19 15:58 Lymph % (Auto) 17.9 % 01/15/19 15:58 [place] % (Auto) 4.2 % 01/15/19 15:58 Eos % (Auto) 0.6 % 01/15/19 15:58 Baso % (Auto) 0.5 % 01/15/19 15:58 Absolute Neuts (auto) 7.3 10^3/ul (1.5-7.7) 01/15/19 15:58 Absolute Lymphs (auto) 1.7 10^3/ul (1.0-4.8) 01/15/19 15:58 Absolute Monos (auto) 0.4 10^3/ul (0-0.8) 01/15/19 15:58 Absolute Eos (auto) 0.1 10^3/ul (0-0.6) 01/15/19 15:58 Absolute Basos (auto) 0.0 10^3/ul (0-0.2) 01/15/19 15:58 Absolute Nucleated RBC 0.0 10^3/ul 01/15/19 15:58 Nucleated RBC % 0.1 01/15/19 15:58 Sodium 138 mmol/L (135-145) 01/15/19 15:58 Potassium 3.5 mmol/L (3.5-5.0) 01/15/19 15:58 Chloride 104 mmol/L (101-111) 01/15/19 15:58 Carbon Dioxide 24 mmol/L (22-32) 01/15/19 15:58 Anion Gap 10 mmol/L (2-11) 01/15/19 15:58 BUN 16 mg/dL (6-24) 01/15/19 15:58 Creatinine 1.11 mg/dL (0.67-1.17) 01/15/19 15:58 Est GFR ( Amer) 89.2 (>60) 01/15/19 15:58 Est GFR (Non-Af Amer) 73.7 (>60) 01/15/19 15:58 BUN/Creatinine Ratio 14.4 (8-20) 01/15/19 15:58 Glucose 187 mg/dL (70-100) H 01/15/19 15:58 Hemoglobin A1c 5.4 % (4.0-5.6) 01/16/19 08:02 Calcium 9.6 mg/dL (8.6-10.3) 01/15/19 15:58 Total Bilirubin 0.40 mg/dL (0.2-1.0) 01/15/19 15:58 AST 33 U/L (13-39) 01/15/19 15:58 ALT 76 U/L (7-52) H 01/15/19 15:58 Alkaline Phosphatase 70 U/L (34-104) 01/15/19 15:58 Total Protein 7.1 g/dL (6.4-8.9) 01/15/19 15:58 Albumin 4.5 g/dL (3.2-5.2) 01/15/19 15:58 Globulin 2.6 g/dL (2-4) 01/15/19 15:58 Albumin/Globulin Ratio 1.7 (1-3) 01/15/19 15:58 Triglycerides 92 mg/dL 01/16/19 08:02 Cholesterol 184 mg/dL 01/16/19 08:02 LDL Cholesterol 118 mg/dL 01/16/19 08:02 HDL Cholesterol 47.5 mg/dL 01/16/19 08:02 TSH 0.86 mcIU/mL (0.34-5.60) 01/15/19 15:58 Urine Color Yellow 01/15/19 17:35 Urine Appearance Clear 01/15/19 17:35 Urine pH 7.0 (5-9) 01/15/19 17:35 Ur Specific [place] 1.014 (1.010-1.030) 01/15/19 17:35 Urine Protein Negative (Negative) 01/15/19 17:35 Urine Ketones Negative (Negative) 01/15/19 17:35 Urine Blood 1+ (Negative) A 01/15/19 17:35 Urine Nitrate Negative (Negative) 01/15/19 17:35 Urine Bilirubin Negative (Negative) 01/15/19 17:35 Urine Urobilinogen Negative (Negative) 01/15/19 17:35 Ur Leukocyte Esterase Negative (Negative) 01/15/19 17:35 Urine WBC (Auto) Trace(0-5/hpf) (Absent) 01/15/19 17:35 Urine RBC (Auto) 1+(3-5/hpf) (Absent) A 01/15/19 17:35 Ur Squamous Epith Cells Present (Absent) A 01/15/19 17:35 Urine Bacteria Absent (Absent) 01/15/19 17:35 Urine Glucose Negative (Negative) 01/15/19 17:35 Salicylates < 2.50 mg/dL (<30) 01/15/19 15:58 Urine Opiates Screen Presumptive positive (None Detect) A 01/15/19 17:35 Acetaminophen < 15 mcg/mL 01/15/19 15:58 Ur Barbiturates Screen None detected (None Detect) 01/15/19 17:35 Valproic Acid 97.0 mcg/mL (50-100) 01/20/19 06:47 Ur Phencyclidine Scrn None detected (None Detect) 01/15/19 17:35 Ur Amphetamines Screen None detected (None Detect) 01/15/19 17:35 U Benzodiazepines Scrn None detected (None Detect) 01/15/19 17:35 Urine Cocaine Screen None detected (None Detect) 01/15/19 17:35 U Cannabinoids Screen None detected (None Detect) 01/15/19 17:35 Serum Alcohol < 10 mg/dL (<10) 01/15/19 15:58 Continued Medication Management: Continue Outpt Medication Medications: Current Medications Acetaminophen (Tylenol Tab*) 650 mg PO Q4H PRN PRN Reason: PAIN; OR TEMP >101 Al Hydrox/Mg Hydrox/Simethicone (Maalox Plus*) 30 ml PO Q4H PRN PRN Reason: INDIGESTION Aripiprazole (Abilify Tab*) 20 mg PO DAILY [facility] Last Admin: 01/21/19 08:21 Dose: 20 mg Divalproex Sodium (Depakote Er Tab(*)) 500 mg PO BID [facility] Last Admin: 01/21/19 21:51 Dose: 500 mg Haloperidol (Haldol Tab*) 5 mg PO Q6H PRN PRN Reason: AGITATION Last Admin: 01/18/19 02:11 Dose: 5 mg Lorazepam (Ativan Tab(*)) 2 mg PO Q6H PRN PRN Reason: ANXIETY Last Admin: 01/18/19 02:11 Dose: 2 mg Multivitamins/Minerals (Theragran/Minerals Tab*) 1 tab PO DAILY [facility] Last Admin: 01/21/19 08:19 Dose: 1 tab - Discharge Plan Discharge Plan: Inpatient Hospitalization
[2019-01-22] MEDS: Divalproex ER TAB(*) 500 MG PO SCH (09:16)
[2019-01-22] MEDS: ARIPiprazole TAB* 20 MG PO SCH (09:16)
[2019-01-22] MEDS: Multivitamins/Minerals TAB PO SCH (09:16)
[2019-01-22] MEDS ORDERED: Aripiprazole LAUROXIL 1,064 MG/3.9 ML SYRINGE IM ONE (12:54)
[2019-01-23 06:40] LABS: ABS Eosinophils 0.1 10^3/ul (0-0.6); ABS Monocytes 0.5 10^3/ul (0-0.8); ABS Neutrophils 6.2 10^3/ul (1.5-7.7); Eosinophil % 0.9 %; Hematocrit 43 % (42-52); Hemoglobin 14.8 g/dL (14.0-18.0); Mean Corpuscular HGB Conc 34 g/dL (31-36); Mean Corpuscular Hemoglobin 32 pg (27-31); Mean Corpuscular Volume 94 fL (80-94); Mean Platelet Volume 8.2 fL (7.4-10.4); Nucleated Red Blood Cells % 0.1; Platelet Count 274 10^3/uL (150-450); Red Blood Count 4.58 10^6 /uL (4.18-5.48); Red Cell Distribution Width 13 % (10-15); White Blood Count 8.8 10^3/uL (3.5-10.8)
[2019-01-23 07:01] LABS: Albumin 4.6 g/dL (3.2-5.2); Albumin/Globulin Ratio 1.9 (1-3); BUN/Creatinine Ratio 13.2 (8-20); Calcium 9.6 mg/dL (8.6-10.3); EGFR African American 94.1 (>60); EGFR Non-African American 77.8 (>60); Globulin 2.4 g/dL (2-4); Potassium 4.6 mmol/L (3.5-5.0); Total Bilirubin 0.4 mg/dL (0.2-1.0)
[2019-01-23] MEDS: Multivitamins/Minerals TAB PO SCH (09:05)
--- NOTE | 2019-01-23 11:09 | PN ---
Subjective - Subjective Date of Service: 01/23/19 Service Type: 12339 Hosp care 35 min high complexity Subjective: Nursing Report: Patient was visible on unit, Slept overnight without incident. He is not attending group activities. CC: "I cant associate with the ACT team I am suing them " Patient was seen and evaluated in the common room. The patient reported that his mother can be contacted but that he cant be set up with the ACT team because he is suing them. He reported that he wants to go home so he can check his PO Box for law suit documents and doesnt trust that the senior network architect told him that he can have a family member bring his mail to him, stating that it is a breach of contract. Objective - General Observations Appearance: Disheveled Appears Stated Age: Yes Stature: WNL Posture: Slumped Eye Contact: Avoidant Behavior/Activity: Accelerated - Interaction Observations Attitude Towards Examiner: Mistrustful Stated Mood: Anxious Affect: Blunted Speech Pattern/Tone: Perseverating Thought Process: Loose Associations Thought Content: Paranoid Thought Process: Lethality: Paranoid Ideation Hallucination Type: None Delusion Type: Persecution - Cognitive Function Orientation: A&O x 4 Level of Consciousness: Awake Insight: Difficulty Acknowledging Presence of Psyciatric Problems Judgment Within Normal Limits: No Ability to Make Reasonable Decisions: Serverely Impaired - Medication Compliance Cooperative with Inpatient Medication Regimen: Yes - Group Participation Participates in Group Activities: No Assessment - Assessment Inpatient DSM-V Dx: F25.0 Clinical Impression: 38 year old male with a history of schizoaffective disorder currently paranoid and delusional and lacks insight into treatment needs. Plan - Plan Treatment Plan: Name: GARY WARD Birthdate: 1980 [id number] #Q30 minute observation. # The patient requires inpatient admission at this time to assure safety, receive treatment and work toward stabilization. # Social Work on board # Court hearing granted retention of treatment #D/C Valproic acid and oral abilify # Patient received Aristada long acting injection initio 675mg +Aristada 1064mg Q8 weeks on 01/22/19 without complication. # He signed release to speak with his mother #Continues to refuse to be set up with ACT team, stating that he has a lawsuit against them # Patient continues to be paranoid refusing to cooperate with the ACT team. Will move forward with [facility] hospital referral #Goals before discharge include: To eliminate/ reduce psychotic symptoms 01/23/19 01/23/19 01/23/19 06:27 06:27 06:27 WBC 8.8 RBC 4.58 Hgb 14.8 Hct 43 MCV 94 MCH 32 H MCHC 34 RDW 13 Plt Count 274 MPV 8.2 Neut % (Auto) 70.6 Lymph % (Auto) 23.0 [place] % (Auto) 5.2 Eos % (Auto) 0.9 Baso % (Auto) 0.3 Absolute Neuts (auto) 6.2 Absolute Lymphs (auto) 2.0 Absolute Monos (auto) 0.5 Absolute Eos (auto) 0.1 Absolute Basos (auto) 0.0 Absolute Nucleated RBC 0.0 Nucleated RBC % 0.1 Sodium 141 Potassium 4.6 Chloride 105 Carbon Dioxide 30 Anion Gap 6 BUN 14 Creatinine 1.06 Est GFR ( Amer) 94.1 Est GFR (Non-Af Amer) 77.8 BUN/Creatinine Ratio 13.2 Glucose 97 Calcium 9.6 Total Bilirubin 0.40 AST 29 ALT 80 H Alkaline Phosphatase 70 Ammonia 56 H Total Protein 7.0 Albumin 4.6 Globulin 2.4 Albumin/Globulin Ratio 1.9 Continued Medication Management: Continue Outpt Medication Medications: Current Medications Acetaminophen (Tylenol Tab*) 650 mg PO Q4H PRN PRN Reason: PAIN; OR TEMP >101 Al Hydrox/Mg Hydrox/Simethicone (Maalox Plus*) 30 ml PO Q4H PRN PRN Reason: INDIGESTION Haloperidol (Haldol Tab*) 5 mg PO Q6H PRN PRN Reason: AGITATION Last Admin: 01/18/19 02:11 Dose: 5 mg Lorazepam (Ativan Tab(*)) 2 mg PO Q6H PRN PRN Reason: ANXIETY Last Admin: 01/18/19 02:11 Dose: 2 mg Multivitamins/Minerals (Theragran/Minerals Tab*) 1 tab PO DAILY [facility] Last Admin: 01/23/19 09:05 Dose: Not Given - Discharge Plan Discharge Plan: Inpatient Hospitalization
[2019-01-24] MEDS: Multivitamins/Minerals TAB PO SCH (09:55)
--- NOTE | 2019-01-24 10:16 | PN ---
Subjective - Subjective Date of Service: 01/24/19 Service Type: 66493 Hosp care 35 min high complexity Subjective: Nursing Report: Patient was visible on unit, Slept overnight without incident. He is not attending group activities. CC: "I need to pay bills " Patient was seen and evaluated in the common room. The patient reported that he will not work with the ACT team because he is suing them. He reported that he wants to go home so he can check his PO Box and said that the oakes machine operator can not order someone to check his PO box and breach the contract . Patient reported that it is unlawful to be here. Objective - General Observations Appearance: Disheveled Appears Stated Age: Yes Stature: Overweight Posture: Tense Eye Contact: Intense Behavior/Activity: WNL - Interaction Observations Attitude Towards Examiner: Cooperative Stated Mood: Dysphoric Affect: Blunted Speech Pattern/Tone: Clear, Rambling Thought Process: Coherent Perception: WNL, Derealization Thought Content: Paranoid Thought Process: Lethality: Paranoid Ideation Hallucination Type: None Delusion Type: None, Thought Broadcasting - Cognitive Function Orientation: A&O x 4 Level of Consciousness: Awake Insight: Mostly Blames Others for Problems Judgment Within Normal Limits: No Ability to Make Reasonable Decisions: Serverely Impaired - Medication Compliance Cooperative with Inpatient Medication Regimen: Yes - Group Participation Participates in Group Activities: No Assessment - Assessment Inpatient DSM-V Dx: F25.0 Clinical Impression: 38 year old male with a history of schizoaffective disorder currently paranoid and delusional and lacks insight into treatment needs. Plan - Plan Treatment Plan: Name: GARY WARD Birthdate: 1980 [id number] #Q30 minute observation. Computer access to pay bills online with staff supervision. # The patient requires inpatient admission at this time to assure safety, receive treatment and work toward stabilization. # Social Work on board # Court hearing granted retention of treatment # Patient received Aristada long acting injection initio 675mg +Aristada 1064mg Q8 weeks on 01/22/19 without complication. # He signed release to speak with his mother #Continues to refuse to be set up with ACT team, stating that he has a lawsuit against them. # Patient continues to be paranoid refusing to cooperate with the ACT team. Will move forward with [facility] hospital referral #Goals before discharge include: To eliminate/ reduce psychotic symptoms Sodium 141 mmol/L (135-145) 01/23/19 06:27 Potassium 4.6 mmol/L (3.5-5.0) 01/23/19 06:27 BUN 14 mg/dL (6-24) 01/23/19 06:27 Creatinine 1.06 mg/dL (0.67-1.17) 01/23/19 06:27 Hemoglobin A1c 5.4 % (4.0-5.6) 01/16/19 08:02 Calcium 9.6 mg/dL (8.6-10.3) 01/23/19 06:27 AST 29 U/L (13-39) 01/23/19 06:27 ALT 80 U/L (7-52) H 01/23/19 06:27 Triglycerides 92 mg/dL 01/16/19 08:02 Cholesterol 184 mg/dL 01/16/19 08:02 LDL Cholesterol 118 mg/dL 01/16/19 08:02 Vital Signs Temp Pulse Resp BP Pulse Ox 98.3 F 86 16 130/76 100 01/23/19 08:50 01/23/19 08:50 01/23/19 08:50 01/23/19 08:50 01/23/19 08:50 Continued Medication Management: Continue Outpt Medication Medications: Current Medications Acetaminophen (Tylenol Tab*) 650 mg PO Q4H PRN PRN Reason: PAIN; OR TEMP >101 Al Hydrox/Mg Hydrox/Simethicone (Maalox Plus*) 30 ml PO Q4H PRN PRN Reason: INDIGESTION Haloperidol (Haldol Tab*) 5 mg PO Q6H PRN PRN Reason: AGITATION Last Admin: 01/18/19 02:11 Dose: 5 mg Lorazepam (Ativan Tab(*)) 2 mg PO Q6H PRN PRN Reason: ANXIETY Last Admin: 01/18/19 02:11 Dose: 2 mg Multivitamins/Minerals (Theragran/Minerals Tab*) 1 tab PO DAILY [facility] Last Admin: 01/24/19 09:55 Dose: 1 tab - Discharge Plan Discharge Plan: Inpatient Hospitalization
[2019-01-25] MEDS: Multivitamins/Minerals TAB PO SCH (08:37)
[2019-01-26] MEDS: Multivitamins/Minerals TAB PO SCH (08:02)
--- NOTE | 2019-01-27 13:29 | PN ---
Subjective - Subjective Date of Service: 01/27/19 Service Type: 06028 Hosp care 35 min high complexity Subjective: Nursing Report: Patient was visible on unit, Slept overnight without incident. He is not attending group activities. CC: "The electricity from the lights is shocking the hair on my arms " Patient was seen and evaluated in the common room. The patient reported that he can feel the electricity from the lights interfering with the sensations on his arm. He reported that he doesnt want to go to the [facility]. Objective - General Observations Appearance: Disheveled Appears Stated Age: Yes Stature: Overweight Posture: Slumped Eye Contact: Avoidant Behavior/Activity: Accelerated - Interaction Observations Attitude Towards Examiner: Mistrustful Stated Mood: Dysphoric Affect: Blunted Speech Pattern/Tone: Quiet Volume Thought Process: Loose Associations Perception: Depersonalization Thought Content: Paranoid Thought Process: Lethality: Paranoid Ideation Hallucination Type: Tactile Delusion Type: Somatic - Cognitive Function Orientation: A&O x 4 Level of Consciousness: Awake Cognition: WNL Insight: Difficulty Acknowledging Presence of Psyciatric Problems Judgment Within Normal Limits: No Ability to Make Reasonable Decisions: Serverely Impaired - Medication Compliance Cooperative with Inpatient Medication Regimen: Yes - Group Participation Participates in Group Activities: No Assessment - Assessment Inpatient DSM-V Dx: F25.0 Clinical Impression: 38 year old male with a history of schizoaffective disorder currently paranoid and delusional and lacks insight into treatment needs. Plan - Plan Treatment Plan: Name: GARY WARD Birthdate: 1980 [id number] #Q30 minute observation. # The patient requires inpatient admission at this time to assure safety, receive treatment and work toward stabilization. # Social Work on board # Court hearing granted retention of treatment # Patient received Aristada long acting injection initio 675mg +Aristada 1064mg Q8 weeks on 01/22/19 without complication. # Patient continues to be paranoid will have ACT evaluate the patient # [facility] referral # 2[facility] # AOT list #Goals before discharge include: To eliminate/ reduce psychotic symptoms Sodium 141 mmol/L (135-145) 01/23/19 06:27 Potassium 4.6 mmol/L (3.5-5.0) 01/23/19 06:27 BUN 14 mg/dL (6-24) 01/23/19 06:27 Creatinine 1.06 mg/dL (0.67-1.17) 01/23/19 06:27 Hemoglobin A1c 5.4 % (4.0-5.6) 01/16/19 08:02 Calcium 9.6 mg/dL (8.6-10.3) 01/23/19 06:27 AST 29 U/L (13-39) 01/23/19 06:27 ALT 80 U/L (7-52) H 01/23/19 06:27 Triglycerides 92 mg/dL 01/16/19 08:02 Cholesterol 184 mg/dL 01/16/19 08:02 LDL Cholesterol 118 mg/dL 01/16/19 08:02 Vital Signs Temp Pulse Resp BP Pulse Ox 98.1 F 68 16 127/70 100 01/27/19 08:00 01/27/19 08:00 01/27/19 08:50 01/27/19 08:00 01/27/19 08:00 Continued Medication Management: Continue Outpt Medication Medications: Current Medications Acetaminophen (Tylenol Tab*) 650 mg PO Q4H PRN PRN Reason: PAIN; OR TEMP >101 Al Hydrox/Mg Hydrox/Simethicone (Maalox Plus*) 30 ml PO Q4H PRN PRN Reason: INDIGESTION Haloperidol (Haldol Tab*) 5 mg PO Q6H PRN PRN Reason: AGITATION Last Admin: 01/18/19 02:11 Dose: 5 mg Lorazepam (Ativan Tab(*)) 2 mg PO Q6H PRN PRN Reason: ANXIETY Last Admin: 01/18/19 02:11 Dose: 2 mg Multivitamins/Minerals (Theragran/Minerals Tab*) 1 tab PO DAILY [facility] Last Admin: 01/26/19 08:02 Dose: 1 tab - Discharge Plan Discharge Plan: Consider Longer Term Tx
[2019-01-27] MEDS: Multivitamins/Minerals TAB PO SCH (13:34)
[2019-01-28] MEDS: Multivitamins/Minerals TAB PO SCH (08:39)
--- NOTE | 2019-01-28 09:00 | PN ---
Subjective - Subjective Date of Service: 01/28/19 Service Type: 25333 Hosp care 35 min high complexity Subjective: Nursing Report: Patient was visible on unit, Slept overnight without incident. He is not attending group activities. CC: "I get prolonged erections " Patient was seen and evaluated in the common room. The patient reported that he is distressed about getting "prolonged erections that last a hour and feel that it is a sign that my body is not getting rid of the things that are unpure. " He reported that his plan in life is to wait for court documents and to make copies of those documents. Objective - General Observations Appears Stated Age: Yes Stature: Overweight Posture: Slumped Eye Contact: Avoidant Behavior/Activity: Accelerated - Interaction Observations Attitude Towards Examiner: Mistrustful Stated Mood: Dysphoric Affect: Blunted Speech Pattern/Tone: Quiet Volume Thought Process: Loose Associations Perception: WNL Thought Content: Paranoid Thought Process: Lethality: Paranoid Ideation Hallucination Type: None Delusion Type: Somatic - Cognitive Function Orientation: A&O x 4 Level of Consciousness: Awake Insight: Difficulty Acknowledging Presence of Psyciatric Problems Ability to Make Reasonable Decisions: Serverely Impaired - Medication Compliance Cooperative with Inpatient Medication Regimen: Yes - Group Participation Participates in Group Activities: No Assessment - Assessment Inpatient DSM-V Dx: F25.0 Clinical Impression: 38 year old male with a history of schizoaffective disorder currently paranoid and delusional and lacks insight into treatment needs. Plan - Plan Treatment Plan: Name: GARY WARD Birthdate: 1980 [id number] #Q30 minute observation. # The patient requires inpatient admission at this time to assure safety, receive treatment and work toward stabilization. # # Collaboration with Player Development Executive Gopal Berger # Court hearing granted retention of treatment # Patient received Aristada long acting injection initio 675mg +Aristada 1064mg Q8 weeks on 01/22/19 without complication. Next due on 03/19/19. # Patient is in agreement to have ACT team evaluate the patient # [facility] referral # 2PC # AOT list #Goals before discharge include: To eliminate/ reduce psychotic symptoms Sodium 141 mmol/L (135-145) 01/23/19 06:27 Potassium 4.6 mmol/L (3.5-5.0) 01/23/19 06:27 BUN 14 mg/dL (6-24) 01/23/19 06:27 Creatinine 1.06 mg/dL (0.67-1.17) 01/23/19 06:27 Hemoglobin A1c 5.4 % (4.0-5.6) 01/16/19 08:02 Calcium 9.6 mg/dL (8.6-10.3) 01/23/19 06:27 AST 29 U/L (13-39) 01/23/19 06:27 ALT 80 U/L (7-52) H 01/23/19 06:27 Triglycerides 92 mg/dL 01/16/19 08:02 Cholesterol 184 mg/dL 01/16/19 08:02 LDL Cholesterol 118 mg/dL 01/16/19 08:02 Vital Signs Temp Pulse Resp BP Pulse Ox 97.7 F 74 16 135/71 99 01/28/19 08:00 01/28/19 08:00 01/28/19 08:00 01/28/19 08:00 01/28/19 08:00 Continued Medication Management: Continue Outpt Medication Medications: Current Medications Acetaminophen (Tylenol Tab*) 650 mg PO Q4H PRN PRN Reason: PAIN; OR TEMP >101 Al Hydrox/Mg Hydrox/Simethicone (Maalox Plus*) 30 ml PO Q4H PRN PRN Reason: INDIGESTION Haloperidol (Haldol Tab*) 5 mg PO Q6H PRN PRN Reason: AGITATION Last Admin: 01/18/19 02:11 Dose: 5 mg Lorazepam (Ativan Tab(*)) 2 mg PO Q6H PRN PRN Reason: ANXIETY Last Admin: 01/18/19 02:11 Dose: 2 mg Multivitamins/Minerals (Theragran/Minerals Tab*) 1 tab PO DAILY [facility] Last Admin: 01/28/19 08:39 Dose: Not Given - Discharge Plan Discharge Plan: Inpatient Hospitalization
[2019-01-28] MEDS: Pantoprazole TAB * 40 MG TAB PO SCH (15:46)
[2019-01-29] MEDS: Multivitamins/Minerals TAB PO SCH (09:41)
[2019-01-29] MEDS: Pantoprazole TAB * 40 MG TAB PO SCH (09:41)
--- NOTE | 2019-01-29 14:29 | PN ---
Subjective - Subjective Date of Service: 01/29/19 Service Type: 55297 Hosp care 35 min high complexity Subjective: Nursing Report: Patient was visible on unit, Slept overnight without incident. He is not attending group activities. CC: "I dont know " Patient was seen and evaluated in the common room. No overnight incidents reported overnight. The patient denied side effects from medications. Patient not interacting with peers. He slept overnight and ate meals. Objective - General Observations Appearance: Disheveled Appears Stated Age: Yes Stature: WNL Posture: Slumped Eye Contact: Avoidant Behavior/Activity: Peculiar - Interaction Observations Attitude Towards Examiner: Mistrustful Stated Mood: Dysphoric Affect: Blunted Speech Pattern/Tone: Quiet Volume Thought Process: Loose Associations Perception: WNL Thought Content: Paranoid Thought Process: Lethality: Paranoid Ideation Hallucination Type: None Delusion Type: Persecution - Cognitive Function Orientation: A&O x 4 Level of Consciousness: Awake Insight: Difficulty Acknowledging Presence of Psyciatric Problems Judgment Within Normal Limits: No Ability to Make Reasonable Decisions: Serverely Impaired - Medication Compliance Cooperative with Inpatient Medication Regimen: Yes - Group Participation Participates in Group Activities: No Assessment - Assessment Merits Inpatient Hospitalization: For Immediate Safety Inpatient DSM-V Dx: F25.0 Clinical Impression: 38 year old male with a history of schizoaffective disorder currently paranoid and delusional and lacks insight into treatment needs. Plan - Plan Treatment Plan: Name: GARY WARD Birthdate: 1980 [id number] #Q30 minute observation. # The patient requires inpatient admission at this time to assure safety, receive treatment and work toward stabilization. # # Collaboration with Licensed Direct Entry Midwife Gopal Berger # Court hearing granted retention of treatment # Patient received Aristada long acting injection initio 675mg +Aristada 1064mg Q8 weeks on 01/22/19 without complication. Next due on 03/19/19. # [facility] referral # 2PC completed # AOT #Goals before discharge include: To eliminate/ reduce psychotic symptoms Sodium 141 mmol/L (135-145) 01/23/19 06:27 Potassium 4.6 mmol/L (3.5-5.0) 01/23/19 06:27 BUN 14 mg/dL (6-24) 01/23/19 06:27 Creatinine 1.06 mg/dL (0.67-1.17) 01/23/19 06:27 Hemoglobin A1c 5.4 % (4.0-5.6) 01/16/19 08:02 Calcium 9.6 mg/dL (8.6-10.3) 01/23/19 06:27 AST 29 U/L (13-39) 01/23/19 06:27 ALT 80 U/L (7-52) H 01/23/19 06:27 Triglycerides 92 mg/dL 01/16/19 08:02 Cholesterol 184 mg/dL 01/16/19 08:02 LDL Cholesterol 118 mg/dL 01/16/19 08:02 Vital Signs Temp Pulse Resp BP Pulse Ox 97.8 F 70 16 125/84 98 01/29/19 08:00 01/29/19 08:00 01/29/19 08:00 01/29/19 08:00 01/29/19 08:00 Continued Medication Management: Continue Outpt Medication Medications: Current Medications Al Hydrox/Mg Hydrox/Simethicone (Maalox Plus*) 30 ml PO Q4H PRN PRN Reason: INDIGESTION Haloperidol (Haldol Tab*) 5 mg PO Q6H PRN PRN Reason: AGITATION Last Admin: 01/18/19 02:11 Dose: 5 mg Ibuprofen (Motrin Tab*) 600 mg PO Q6H PRN PRN Reason: PAIN Lorazepam (Ativan Tab(*)) 2 mg PO Q6H PRN PRN Reason: ANXIETY Last Admin: 01/18/19 02:11 Dose: 2 mg Multivitamins/Minerals (Theragran/Minerals Tab*) 1 tab PO DAILY [facility] Last Admin: 01/29/19 09:41 Dose: 1 tab Pantoprazole Sodium (Protonix Tab*) 40 mg PO DAILY [facility] Last Admin: 01/29/19 09:41 Dose: 40 mg - Discharge Plan Discharge Plan: Consider Longer Term Tx
[2019-01-30] MEDS: Pantoprazole TAB * 40 MG TAB PO SCH (08:58)
[2019-01-30] MEDS: Multivitamins/Minerals TAB PO SCH (08:58)
--- NOTE | 2019-01-30 12:01 | PN ---
Subjective - Subjective Date of Service: 01/30/19 Service Type: 32234 Hosp care 35 min high complexity Subjective: Nursing Report: Patient was visible on unit, no chemical restraints or PRNs. Slept overnight CC: "Fine" Patient was seen and evaluated in the common room. The patient reported he is going to the supreme court of the [facility], to submit his case that being in the hospital is a human rights violation. He reported that he would never want to live in state housing because that would require a signature and that would be unlawful to give out his signature. Per nursing no behavioral issues or overnight events reported. Patient reported that he is tolerating medications without side effects. Objective - General Observations Appearance: Disheveled Appears Stated Age: Yes Stature: WNL Posture: Slumped Eye Contact: Avoidant Behavior/Activity: Accelerated - Interaction Observations Attitude Towards Examiner: Mistrustful Stated Mood: Anxious Affect: Blunted Speech Pattern/Tone: Perseverating Thought Process: Blocking Thought Content: Preoccupation/Ruminations Thought Process: Lethality: Paranoid Ideation Hallucination Type: None Delusion Type: Denies - Cognitive Function Orientation: A&O x 4 Level of Consciousness: Awake Judgment Within Normal Limits: No Ability to Make Reasonable Decisions: Serverely Impaired - Medication Compliance Cooperative with Inpatient Medication Regimen: Yes - Group Participation Participates in Group Activities: No Assessment - Assessment Merits Inpatient Hospitalization: For Immediate Safety Inpatient DSM-V Dx: F25.0 Clinical Impression: 38 year old male with a history of schizoaffective disorder currently paranoid and delusional and lacks insight into treatment needs. Plan - Plan Treatment Plan: Name: GARY WARD Birthdate: 1980 [id number] #Q30 minute observation. # The patient requires inpatient admission at this time to assure safety, receive treatment and work toward stabilization. # # Collaboration with Jig Bore Operator Gopal Berger # Court hearing granted retention of treatment # Patient received Aristada long acting injection initio 675mg +Aristada 1064mg Q8 weeks on 01/22/19 without complication. Next due on 03/19/19. # [facility] referral submitted today # 2PC completed # AOT #Goals before discharge include: To eliminate/ reduce psychotic symptoms Sodium 141 mmol/L (135-145) 01/23/19 06:27 Potassium 4.6 mmol/L (3.5-5.0) 01/23/19 06:27 BUN 14 mg/dL (6-24) 01/23/19 06:27 Creatinine 1.06 mg/dL (0.67-1.17) 01/23/19 06:27 Hemoglobin A1c 5.4 % (4.0-5.6) 01/16/19 08:02 Calcium 9.6 mg/dL (8.6-10.3) 01/23/19 06:27 AST 29 U/L (13-39) 01/23/19 06:27 ALT 80 U/L (7-52) H 01/23/19 06:27 Triglycerides 92 mg/dL 01/16/19 08:02 Cholesterol 184 mg/dL 01/16/19 08:02 LDL Cholesterol 118 mg/dL 01/16/19 08:02 Vital Signs Temp Pulse Resp BP Pulse Ox 98.4 F 81 24 132/80 100 01/30/19 08:00 01/30/19 08:00 01/30/19 08:00 01/30/19 08:00 01/30/19 08:00 Continued Medication Management: Continue Outpt Medication Medications: Current Medications Al Hydrox/Mg Hydrox/Simethicone (Maalox Plus*) 30 ml PO Q4H PRN PRN Reason: INDIGESTION Haloperidol (Haldol Tab*) 5 mg PO Q6H PRN PRN Reason: AGITATION Last Admin: 01/18/19 02:11 Dose: 5 mg Ibuprofen (Motrin Tab*) 600 mg PO Q6H PRN PRN Reason: PAIN Lorazepam (Ativan Tab(*)) 2 mg PO Q6H PRN PRN Reason: ANXIETY Last Admin: 01/18/19 02:11 Dose: 2 mg Multivitamins/Minerals (Theragran/Minerals Tab*) 1 tab PO DAILY [facility] Last Admin: 01/30/19 08:58 Dose: 1 tab Pantoprazole Sodium (Protonix Tab*) 40 mg PO DAILY [facility] Last Admin: 01/30/19 08:58 Dose: 40 mg - Discharge Plan Discharge Plan: Consider Longer Term Tx
[2019-01-31] MEDS: Pantoprazole TAB * 40 MG TAB PO SCH (08:33)
[2019-01-31] MEDS: Multivitamins/Minerals TAB PO SCH (08:33)
[2019-01-31] MEDS ORDERED: diPHENhydraMINE PO* 50 MG PO ONE (10:32)
[2019-02-01] MEDS: Multivitamins/Minerals TAB PO SCH (10:43)
[2019-02-01] MEDS: Pantoprazole TAB * 40 MG TAB PO SCH (10:43)
[2019-02-02] MEDS: Pantoprazole TAB * 40 MG TAB PO SCH (08:13)
[2019-02-02] MEDS: Multivitamins/Minerals TAB PO SCH (08:13)
[2019-02-03] MEDS: Pantoprazole TAB * 40 MG TAB PO SCH (08:22)
[2019-02-03] MEDS: Multivitamins/Minerals TAB PO SCH (08:22)
[2019-02-03] MEDS: Ibuprofen TAB* 600 MG PO PRN (08:34)
--- NOTE | 2019-02-03 10:39 | PN ---
Subjective - Subjective Date of Service: 02/03/19 Service Type: 49365 Hosp care 35 min high complexity Subjective: Nursing Report: Patient was visible on unit, no chemical restraints or PRNs. Slept overnight without incident. He is not attending group activities. CC: "I dont know why I am here" Patient was seen and evaluated in the common room. The patient reported that everything is in the lawsuit dont you see that" Patient reported that the light gives him a electric feeling on his skin. Patient reported that he is tolerating medications without side effects. Objective - General Observations Appearance: Disheveled Appears Stated Age: Yes Stature: WNL Posture: WNL Behavior/Activity: Accelerated, Slowed, Peculiar - Interaction Observations Attitude Towards Examiner: Mistrustful Stated Mood: Dysphoric Affect: Blunted Speech Pattern/Tone: Perseverating Thought Process: Loose Associations Thought Content: Obsessional Thought Process: Lethality: Paranoid Ideation Hallucination Type: None Delusion Type: Thought Broadcasting, Somatic - Cognitive Function Orientation: A&O x 4 Level of Consciousness: Awake - Medication Compliance Cooperative with Inpatient Medication Regimen: Yes - Group Participation Participates in Group Activities: No Assessment - Assessment Merits Inpatient Hospitalization: For Immediate Safety Inpatient DSM-V Dx: F25.0 Clinical Impression: 38 year old male with a history of schizoaffective disorder currently paranoid and delusional and lacks insight into treatment needs. Plan - Plan Treatment Plan: Name: GARY WARD Birthdate: 1980 [id number] #Q30 minute observation. # The patient requires inpatient admission at this time to assure safety, receive treatment and work toward stabilization. # # Collaboration with Video Games Mechanic Gopal Berger # Court hearing granted retention of treatment # Patient received Aristada long acting injection initio 675mg +Aristada 1064mg Q8 weeks on 01/22/19 without complication. Next due on 03/19/19. # [facility] hospital transferred delayed until open bed becomes available. # 2PC completed # AOT and ACT #Goals before discharge include: To eliminate/ reduce psychotic symptoms Sodium 141 mmol/L (135-145) 01/23/19 06:27 Potassium 4.6 mmol/L (3.5-5.0) 01/23/19 06:27 BUN 14 mg/dL (6-24) 01/23/19 06:27 Creatinine 1.06 mg/dL (0.67-1.17) 01/23/19 06:27 Hemoglobin A1c 5.4 % (4.0-5.6) 01/16/19 08:02 Calcium 9.6 mg/dL (8.6-10.3) 01/23/19 06:27 AST 29 U/L (13-39) 01/23/19 06:27 ALT 80 U/L (7-52) H 01/23/19 06:27 Triglycerides 92 mg/dL 01/16/19 08:02 Cholesterol 184 mg/dL 01/16/19 08:02 LDL Cholesterol 118 mg/dL 01/16/19 08:02 Vital Signs 02/03/19 08:00 Temperature 97.9 F Pulse Rate 66 Respiratory 12 Rate Blood Pressure 127/81 (mmHg) O2 Sat by Pulse 100 Oximetry Continued Medication Management: Continue Outpt Medication Medications: Current Medications Al Hydrox/Mg Hydrox/Simethicone (Maalox Plus*) 30 ml PO Q4H PRN PRN Reason: INDIGESTION Haloperidol (Haldol Tab*) 5 mg PO Q6H PRN PRN Reason: AGITATION Last Admin: 01/18/19 02:11 Dose: 5 mg Ibuprofen (Motrin Tab*) 600 mg PO Q6H PRN PRN Reason: PAIN Last Admin: 02/03/19 08:34 Dose: 600 mg Lorazepam (Ativan Tab(*)) 2 mg PO Q6H PRN PRN Reason: ANXIETY Last Admin: 01/18/19 02:11 Dose: 2 mg Multivitamins/Minerals (Theragran/Minerals Tab*) 1 tab PO DAILY [facility] Last Admin: 02/03/19 08:22 Dose: 1 tab Pantoprazole Sodium (Protonix Tab*) 40 mg PO DAILY [facility] Last Admin: 02/03/19 08:22 Dose: 40 mg - Discharge Plan Discharge Plan: Consider Longer Term Tx
[2019-02-04] MEDS: Pantoprazole TAB * 40 MG TAB PO SCH (08:18)
[2019-02-04] MEDS: Multivitamins/Minerals TAB PO SCH (08:18)
--- NOTE | 2019-02-04 11:21 | PN ---
Subjective - Subjective Date of Service: 02/04/19 Service Type: 07290 Hosp care 35 min high complexity Subjective: Nursing Report: Patient was visible on unit, no chemical restraints or PRNs. Slept overnight without incident. Today he went to some of the group activities. CC: "Do I have to go to [facility]?" Patient was seen and evaluated today. The patient reported he doesnt wish to go to the [facility] and will prove that by going to the group. He reported that he will work with the ACT team. 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 He reported having adequate appetite and sleep. Per nursing no behavioral issues or overnight events reported. Patient denied muscle stiffness, fever, nausea,and vomiting. Objective - General Observations Appearance: Neat Stature: WNL Posture: Slumped Eye Contact: Average Behavior/Activity: WNL - Interaction Observations Attitude Towards Examiner: Cooperative Stated Mood: Dysphoric Affect: Blunted Speech Pattern/Tone: Perseverating Thought Process: Coherent Perception: WNL Thought Content: Obsessional Hallucination Type: None Delusion Type: None - Cognitive Function Orientation: A&O x 4 Level of Consciousness: Awake - Medication Compliance Cooperative with Inpatient Medication Regimen: Yes - Group Participation Participates in Group Activities: Partial Assessment - Assessment Merits Inpatient Hospitalization: For Immediate Safety Inpatient DSM-V Dx: F25.0 Clinical Impression: 38 year old male with a history of schizoaffective disorder shows some improvement of thought process and is less paranoid. Plan - Plan Treatment Plan: Name: GARY WARD Birthdate: 1980 [id number] #Q30 minute observation. # The patient requires inpatient admission at this time to assure safety, receive treatment and work toward stabilization. # # Collaboration with Apprentice Cook Gopal Berger # Court hearing granted retention of treatment # Patient received Aristada long acting injection initio 675mg +Aristada 1064mg Q8 weeks on 01/22/19 without complication. Next due on 03/19/19. # Will consider discharge home if patient gains insight into treatment and will work with the ACT team. [facility] transferred delayed due to bed availability. # 2PC completed # AOT and ACT team #Goals before discharge include: To eliminate/ reduce psychotic symptoms Sodium 141 mmol/L (135-145) 01/23/19 06:27 Potassium 4.6 mmol/L (3.5-5.0) 01/23/19 06:27 BUN 14 mg/dL (6-24) 01/23/19 06:27 Creatinine 1.06 mg/dL (0.67-1.17) 01/23/19 06:27 Hemoglobin A1c 5.4 % (4.0-5.6) 01/16/19 08:02 Calcium 9.6 mg/dL (8.6-10.3) 01/23/19 06:27 AST 29 U/L (13-39) 01/23/19 06:27 ALT 80 U/L (7-52) H 01/23/19 06:27 Triglycerides 92 mg/dL 01/16/19 08:02 Cholesterol 184 mg/dL 01/16/19 08:02 LDL Cholesterol 118 mg/dL 01/16/19 08:02 Vital Signs Temp Pulse Resp BP Pulse Ox 97.3 F 63 16 131/81 100 02/04/19 08:00 02/04/19 08:00 02/04/19 08:00 02/04/19 08:00 02/04/19 08:00 Continued Medication Management: Continue Outpt Medication Medications: Current Medications Al Hydrox/Mg Hydrox/Simethicone (Maalox Plus*) 30 ml PO Q4H PRN PRN Reason: INDIGESTION Haloperidol (Haldol Tab*) 5 mg PO Q6H PRN PRN Reason: AGITATION Last Admin: 01/18/19 02:11 Dose: 5 mg Ibuprofen (Motrin Tab*) 600 mg PO Q6H PRN PRN Reason: PAIN Last Admin: 02/03/19 08:34 Dose: 600 mg Lorazepam (Ativan Tab(*)) 2 mg PO Q6H PRN PRN Reason: ANXIETY Last Admin: 01/18/19 02:11 Dose: 2 mg Multivitamins/Minerals (Theragran/Minerals Tab*) 1 tab PO DAILY [facility] Last Admin: 02/04/19 08:18 Dose: 1 tab Pantoprazole Sodium (Protonix Tab*) 40 mg PO DAILY [facility] Last Admin: 02/04/19 08:18 Dose: 40 mg - Discharge Plan Discharge Plan: Inpatient Hospitalization
[2019-02-04] MEDS: Ibuprofen TAB* 600 MG PO PRN (18:06)
[2019-02-05] MEDS: Ibuprofen TAB* 600 MG PO PRN ×2 (02:23→08:19)
[2019-02-05] MEDS: Pantoprazole TAB * 40 MG TAB PO SCH (08:20)
[2019-02-05] MEDS: Multivitamins/Minerals TAB PO SCH (08:20)
--- NOTE | 2019-02-05 11:12 | PN ---
Subjective - Subjective Date of Service: 02/05/19 Service Type: 39014 Hosp care 35 min high complexity Subjective: Nursing Report: Patient was visible on unit, no chemical restraints or PRNs. Attending group activities. CC: "Fine" Patient was seen and evaluated in the common room. He reported having adequate appetite and sleep. The patient reports attending and participating in day groups. Per nursing no behavioral issues. Patient reported that he is tolerating injection medication without side effects. Patient reported chest pain overnight hospitalist was contacted and EKG was performed reviewed and he was cleared for cardiac etiology. Objective - General Observations Appearance: Neat Appears Stated Age: Yes Stature: WNL Posture: WNL, Slumped Eye Contact: Average Behavior/Activity: WNL - Interaction Observations Attitude Towards Examiner: Cooperative Stated Mood: Dysphoric Affect: Blunted Speech Pattern/Tone: Clear Thought Process: Coherent Perception: WNL Thought Content: Preoccupation/Ruminations Hallucination Type: None Delusion Type: Somatic - Cognitive Function Orientation: A&O x 4 Level of Consciousness: Awake - Medication Compliance Cooperative with Inpatient Medication Regimen: Yes - Group Participation Participates in Group Activities: Yes Assessment - Assessment Merits Inpatient Hospitalization: For Immediate Safety Inpatient DSM-V Dx: F25.0 Clinical Impression: 38 year old male with a history of schizoaffective disorder shows some improvement of thought process and is less paranoid. Plan - Plan Treatment Plan: Name: GARY WARD Birthdate: 1980 [id number] #Q30 minute observation. # The patient requires inpatient admission at this time to assure safety, receive treatment and work toward stabilization. # # Collaboration with Electron Gun Inspector Gopal Berger # Court hearing granted retention of treatment # Patient received Aristada long acting injection initio 675mg +Aristada 1064mg Q8 weeks on 01/22/19 without complication. # Aristada 1064mg due on 03/19/19. # ACT team to evaluate patient # 2PC completed #EKG performed overnight and reviewed by hospitalist. #Goals before discharge include: To eliminate/ reduce psychotic symptoms Sodium 141 mmol/L (135-145) 01/23/19 06:27 Potassium 4.6 mmol/L (3.5-5.0) 01/23/19 06:27 BUN 14 mg/dL (6-24) 01/23/19 06:27 Creatinine 1.06 mg/dL (0.67-1.17) 01/23/19 06:27 Hemoglobin A1c 5.4 % (4.0-5.6) 01/16/19 08:02 Calcium 9.6 mg/dL (8.6-10.3) 01/23/19 06:27 AST 29 U/L (13-39) 01/23/19 06:27 ALT 80 U/L (7-52) H 01/23/19 06:27 Triglycerides 92 mg/dL 01/16/19 08:02 Cholesterol 184 mg/dL 01/16/19 08:02 LDL Cholesterol 118 mg/dL 01/16/19 08:02 Vital Signs Vital Signs Temp Pulse Resp BP Pulse Ox 97.9 F 73 18 120/79 100 02/05/19 07:00 02/05/19 07:00 02/05/19 07:00 02/05/19 07:00 02/05/19 07:00 Continued Medication Management: Continue Outpt Medication Medications: Current Medications Al Hydrox/Mg Hydrox/Simethicone (Maalox Plus*) 30 ml PO Q4H PRN PRN Reason: INDIGESTION Haloperidol (Haldol Tab*) 5 mg PO Q6H PRN PRN Reason: AGITATION Last Admin: 01/18/19 02:11 Dose: 5 mg Ibuprofen (Motrin Tab*) 600 mg PO Q6H PRN PRN Reason: PAIN Last Admin: 02/05/19 08:19 Dose: 600 mg Lorazepam (Ativan Tab(*)) 2 mg PO Q6H PRN PRN Reason: ANXIETY Last Admin: 01/18/19 02:11 Dose: 2 mg Multivitamins/Minerals (Theragran/Minerals Tab*) 1 tab PO DAILY [facility] Last Admin: 02/05/19 08:20 Dose: 1 tab Pantoprazole Sodium (Protonix Tab*) 40 mg PO DAILY [facility] Last Admin: 02/05/19 08:20 Dose: 40 mg - Discharge Plan Discharge Plan: Inpatient Hospitalization
--- NOTE | 2019-02-05 11:49 | PN ---
BSU: Group Therapy Note - Service Type Service Type: 04333 Group Psychotherapy - Cognitive Behavioral Group Psychotherapy Note: Martín was attentive and briefly participatory once prompted in group this morning. He presented with appropriately variable affect , and requested to be discharged.
--- NOTE | 2019-02-06 08:37 | PN ---
Subjective - Subjective Date of Service: 02/06/19 Service Type: 33215 Hosp care 35 min high complexity Subjective: Nursing Report: Patient was visible on unit, no chemical restraints or PRNs. Attending group activities. CC: "Okay" Patient was seen and evaluated in the common room. He reported having adequate appetite and sleep. The patient reports attending and participating in day groups. Per nursing no behavioral issues. Patient reported that he is tolerating long acting injection medication without side effects. Patient denied chest pain, fever, nausea, vomiting. Objective - General Observations Appears Stated Age: Yes Stature: WNL Posture: WNL Eye Contact: Average Behavior/Activity: WNL - Interaction Observations Attitude Towards Examiner: Cooperative Stated Mood: Dysphoric Affect: Blunted Speech Pattern/Tone: Clear Thought Process: Coherent Perception: WNL Thought Content: WNL Hallucination Type: None Delusion Type: None - Cognitive Function Orientation: A&O x 4 Level of Consciousness: Awake - Medication Compliance Cooperative with Inpatient Medication Regimen: Yes - Group Participation Participates in Group Activities: Yes Assessment - Assessment Merits Inpatient Hospitalization: For Immediate Safety Inpatient DSM-V Dx: F25.0 Clinical Impression: 38 year old male with a history of schizoaffective disorder shows some improvement of thought process and is less paranoid. Plan - Plan Treatment Plan: Name: GARY WARD Birthdate: 1980 [id number] #Q30 minute observation with staff pass. # The patient requires inpatient admission at this time to assure safety, receive treatment and work toward stabilization. # Collaboration with Data Analytics Architect Gopal Berger # Patient received Aristada long acting injection initio 675mg +Aristada 1064mg Q8 weeks on 01/22/19 without complication. # Aristada 1064mg due on 03/19/19. # ACT team to evaluate patient before discharge #EKG performed overnight and reviewed by hospitalist. #Goals before discharge include: To eliminate/ reduce psychotic symptoms Tentative discharge Sunday Sodium 141 mmol/L (135-145) 01/23/19 06:27 Potassium 4.6 mmol/L (3.5-5.0) 01/23/19 06:27 BUN 14 mg/dL (6-24) 01/23/19 06:27 Creatinine 1.06 mg/dL (0.67-1.17) 01/23/19 06:27 Hemoglobin A1c 5.4 % (4.0-5.6) 01/16/19 08:02 Calcium 9.6 mg/dL (8.6-10.3) 01/23/19 06:27 AST 29 U/L (13-39) 01/23/19 06:27 ALT 80 U/L (7-52) H 01/23/19 06:27 Triglycerides 92 mg/dL 01/16/19 08:02 Cholesterol 184 mg/dL 01/16/19 08:02 LDL Cholesterol 118 mg/dL 01/16/19 08:02 Vital Signs Temp Pulse Resp BP Pulse Ox 97.6 F 76 16 137/89 100 02/06/19 08:19 02/06/19 08:19 02/06/19 08:19 02/06/19 08:19 02/06/19 08:19 Continued Medication Management: Continue Outpt Medication Medications: Current Medications Al Hydrox/Mg Hydrox/Simethicone (Maalox Plus*) 30 ml PO Q4H PRN PRN Reason: INDIGESTION Haloperidol (Haldol Tab*) 5 mg PO Q6H PRN PRN Reason: AGITATION Last Admin: 01/18/19 02:11 Dose: 5 mg Ibuprofen (Motrin Tab*) 600 mg PO Q6H PRN PRN Reason: PAIN Last Admin: 02/05/19 08:19 Dose: 600 mg Lorazepam (Ativan Tab(*)) 2 mg PO Q6H PRN PRN Reason: ANXIETY Last Admin: 01/18/19 02:11 Dose: 2 mg Multivitamins/Minerals (Theragran/Minerals Tab*) 1 tab PO DAILY [facility] Last Admin: 02/05/19 08:20 Dose: 1 tab Pantoprazole Sodium (Protonix Tab*) 40 mg PO DAILY [facility] Last Admin: 02/05/19 08:20 Dose: 40 mg - Discharge Plan Discharge Plan: Inpatient Hospitalization
[2019-02-06] MEDS: Pantoprazole TAB * 40 MG TAB PO SCH (09:10)
[2019-02-06] MEDS: Multivitamins/Minerals TAB PO SCH (09:10)
--- NOTE | 2019-02-06 11:31 | PN ---
BSU: Group Therapy Note - Service Type Service Type: 17647 Group Psychotherapy - Cognitive Behavioral Group Therapy ( CBT):Patient was attentive and participatory in CBT programming this morning, and remained in good behavioral control. Patient expressed positive insights regarding relevant treatment interventions and goals.
[2019-02-07] MEDS: Pantoprazole TAB * 40 MG TAB PO SCH (08:32)
[2019-02-07] MEDS: Multivitamins/Minerals TAB PO SCH (08:33)
[2019-02-07] MEDS: Ibuprofen TAB* 600 MG PO PRN (08:33)
[2019-02-07 09:57] VITALS: BP 116/74
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
== END 2019-02-07 12:15 | disposition home or self-care (01) | DRG 885 ==
LOC: ED 15:03 → BSU 21:52
PROVIDERS: ADMIT Psychiatry & Neurology Psychiatry; ATTEND Psychiatry & Neurology Psychiatry
PROC: GZHZZZZ Group Psychotherapy (ICD-10-PCS; principal; 2019-02-06)
DX: F25.0 Schizoaffective disorder, bipolar type (principal); R79.89 Other specified abnormal findings of blood chemistry; R07.9 Chest pain, unspecified; E66.3 Overweight; Z68.26 Body mass index [BMI] 26.0-26.9, adult; Z81.8 Family history of other mental and behavioral disorders; Z91.19 Patient's noncompliance with other medical treatment and regimen; Z56.0 Unemployment, unspecified
CPT/HCPCS: 36415; 80053; 80061; 80164; 80307; 80320; 80329; 81003; 81015; 82140; 83036; 84443; 85025; 87077; 87086; 90853; 93005; 99222; 99231; 99233; 99238; 99284; A9270-GY; G0480

== ENCOUNTER 2019-10-06 12:34 | Emergency (ER) | payer MEDICARE, MEDICAID ==
[2019-10-06] MEDS ORDERED: Ibuprofen TAB* 600 MG PO ONE (14:01)
--- OUTSIDE RECORDS SUMMARY | 2019-10-06 14:02 | XMS REPORT | Continuity of Care Document ---
:1980 External Reference #:[id number] Author Name Jonathan Mccabe M.D. (transmitted by agent of provider Bety Osorio ) Address [address] [facility] [address], [place] [address] Care Team Providers Name Role Phone Jonathna Mccabe III, MD - Internal Care Team Information Bike Technician Medicine Jonathan Mccabe III, MD - Internal Care Team Information Bike Technician Medicine Ross Sahu MD - Care Team Information Bike Technician [phone] Otolaryngology Ramu Hurley MD - Urology Care Team Information Bike Technician [phone] Luis A Luna MD - Urology Care Team Information Bike Technician [phone] Winnie Donato NP - Family Care Team Information Bike Technician [phone] Charan Domingo M.D. - Neurology Care Team Information Bike Technician Pablo Bailey MD - Orthopaedic Care Team Information Bike Technician [phone] Surgery Problems Active Problems Provider Date Bipolar I disorder Cristo Thao M.D. Onset: 10/08/2015 Gastroesophageal reflux disease Winnie Donato NP Onset: 07/01/2018 Note: pantoprazole started 06/25/18 by the ER Anxiety state Winnie Donato NP Onset: 07/01/2018 Abnormal liver function Yoel To MD Onset: 04/09/2013 Note: ALT first up this date March 2013 at 175 then several years normal and 191 on 08/20/18 and 489 08/18/19 - all alk phos levels in a tight pattern 50 to 74; Aug 2018 HCV, HBsAg and HAV IgM all negative; Sep 2018 JAZMÍN negative; ceruloplasmin normal (twice), anti smooth muscle Ab, LK microsomal Ab, AMA negative, from 2012 to 2018 5 BACs negative / zero; Aug 2019 on no psychiatric meds Abnormal involuntary movement Charan Domingo M.D. Onset: 06/09/2019 Skin sensation disturbance Charan Domingo M.D. Onset: 06/09/2019 Neck pain Charan Domingo M.D. Onset: 06/09/2019 Headache Charan Domingo M.D. Onset: 07/21/2019 Difficulty breathing Charan Domingo M.D. Onset: 07/21/2019 Chronic fatigue syndrome Charan Domingo M.D. Onset: 07/21/2019 Social History Type Date Description Comments Sex Unknown Tobacco Use Start: Unknown Never Smoked Cigarettes Smoking Status Reviewed: 09/15/19 Never Smoked Cigarettes ETOH Use Denies alcohol use Tobacco Use Start: Unknown Patient has never smoked Recreational Drug Use Never Used Drugs Exercise Type/Frequency Exercises regularly Allergies, Adverse Reactions, Alerts Description No Known Drug Allergies Medications Active Medications SIG Qnty Indications Ordering Provider Date Diclofenac Sodium apply 4 times 100gm M25.531 Karin Solomon, 06/27/2018 1% Gel daily as needed M.D. for pain Aspirin Ec 1 tab po daily Unknown 05/21/2018 81mg Tablets Pantoprazole Sodium 1 by mouth 30tabs Winnie Campo 20mg every day KYM Donato Tablets Multivit daily Unknown Liquid Biotin as needed, not Unknown 1mg Capsules daily Systane apply twice Unknown 0.4-0.3% Solution daily as needed for dry eyes Gas-X Unknown 80mg Chewtabs Albuterol Sulfate HFA Unknown 108(90Base) mcg/Act Aerosol Claritin 1 by mouth Unknown 10mg Capsules every day Advair Diskus inhale one puff Unknown by mouth twice 100-50mcg/Dose Aerosol a day History Medications Fluoxetine HCL bid Other Ordering Provider 06/02/2019 - 06/08/2019 10mg Capsules Influenza,Unspecified Unknown - 07/28/2016 Injection Medications Administered in Office Medication SIG Qnty Indications Ordering Provider Date Records Fee Ross Salgado M.D. 08/18/2019 Injection Records Fee Yoel To MD 08/12/2019 Injection Records Fee Karin Solomon M.D. 07/08/2019 Injection PPD Nurse Visit C 04/02/2017 Injection Immunizations CPT Code Status Date Vaccine Reaction Lot # [id number] Given 12/31/2018 Meningococcal Immunization [id number] Given 07/13/2017 Influenza Virus Vaccine, No immediate reaction [id number] Quadrivalent, Split, noted. Preservative Free [id number] Given 08/13/2012 Tetanus And Diptheria (Td) For Adult Use Preservative Free Vital Signs Date Vital Result Comment 09/15/2019 2:33pm Height 65 inches 5'5" Weight 184.00 lb Heart Rate 97 /min BP Systolic Sitting 153 mmHg BP Diastolic Sitting 105 mmHg BMI (Body Mass Index) 30.6 kg/m2 09/11/2019 3:25pm Height 65 inches 5'5" Weight 183.38 lb Heart Rate 94 /min BP Systolic 133 mmHg BP Diastolic 82 mmHg Respiratory Rate 18 /min O2 % BldC Oximetry 97 % BMI (Body Mass Index) 30.5 kg/m2 Results Test Acquired Date Facility Test Result H/L Range Note CBC No Diff 08/18/2019 [facility] White Blood 7.3 10^3/uL Normal 3.5-10.[address] [place] [address] [phone] Red Blood Count 4.66 10^6/uL Normal 4.18-5.48 Hemoglobin 15.2 g/dL Normal 14.0-18.0 Hematocrit 45 % Normal 42-52 Mean Corpuscular Volume 96 fL High 80-94 Mean Corpuscular Hemoglobin 33 pg High 27-31 Mean Corpuscular HGB Conc 34 g/dL Normal 31-36 Red Cell Distribution Width 13 % Normal 10-15 Platelet Count 292 10^3/uL Normal 150-450 Mean Platelet Volume 9.2 fL Normal 7.4-10.4 Comp Metabolic 08/18/2019 [facility] Sodium 136 mmol/L Normal 135-[address] [place] [address] [phone] Potassium 4.3 mmol/L Normal 3.5-5.0 Chloride 101 mmol/L Normal 101-111 Co2 Carbon Dioxide 27 mmol/L Normal 22-32 Anion Gap 8 mmol/L Normal 2-11 Glucose 91 mg/dL Normal 70-100 Blood Urea Nitrogen 21 mg/dL Normal 6-24 Creatinine 1.02 mg/dL Normal 0.67-1.17 BUN/Creatinine Ratio 20.6 High 8-20 Calcium 10.4 mg/dL High 8.6-10.3 Total Protein 7.4 g/dL Normal 6.4-8.9 Albumin 5.1 g/dL Normal 3.2-5.2 Globulin 2.3 g/dL Normal 2-4 Albumin/Globulin Ratio 2.2 Normal 1-3 Total Bilirubin 0.40 mg/dL Normal 0.2-1.0 Alkaline Phosphatase 87 U/L Normal 34-104 Alt 489 U/L High 7-52 Ast 153 U/L High 13-39 Egfr Non- 80.9 >60 Egfr 97.9 >60 1 Inr/Protime 08/18/2019 [facility] Inr 0.91 Normal 0.82-1.[address] [place] [address] [phone] Laboratory test 08/18/2019 [facility] Nuclear AB <1:[address] ([place]) By [place] ([place] [address] Igg e) [phone] Anti Nuclear Antibody 1.2 U Abnormal 4 Laboratory test 06/06/2019 [facility] Liver-Kidney <5.0 U [address] [place] [address] [phone] Liver Function 06/06/2019 [facility] Total Protein 7.6 g/dL Normal 6.4-[address] [place] [address] [phone] Albumin 4.9 g/dL Normal 3.2-5.2 Globulin 2.7 g/dL Normal 2-4 Albumin/Globulin Ratio 1.8 Normal 1-3 Total Bilirubin 0.50 mg/dL Normal 0.2-1.0 Direct Bilirubin 0.10 mg/dL Normal 0.03-0.18 Indirect Bilirubin 0.4 mg/dL Normal 0.3-1.0 Alkaline Phosphatase 69 U/L Normal 34-104 Alt 354 U/L High 7-52 Ast 120 U/L High 13-39 Laboratory test 06/06/2019 [facility] Soluble Liver <20.1 U [address] [place] [address] [phone] Inr/Protime 06/06/2019 [facility] Inr 1.03 Normal 0.82- [address] [place] [address] [phone] Laboratory test 06/06/2019 [facility] Copper, Serum 0.92 g/mL 0.75- [address] [place] [address] [phone] CBC No Diff 05/17/2019 [facility] White Blood 7.0 10^3/uL Normal 3.5-[address] DR[address] Count 0.8 [place] [address] [phone] Red Blood Count 4.67 10^6/uL Normal 4.18-5.48 Hemoglobin 15.4 g/dL Normal 14.0-18.0 Hematocrit 44 % Normal 42-52 Mean Corpuscular Volume 93 fL Normal 80-94 Mean Corpuscular Hemoglobin 33 pg High 27-31 Mean Corpuscular HGB Conc 35 g/dL Normal 31-36 Red Cell Distribution Width 13 % Normal 10-15 Platelet Count 293 10^3/uL Normal 150-450 Mean Platelet Volume 8.4 fL Normal 7.4-10.4 Comp Metabolic 05/17/2019 [facility] Sodium 137 mmol/L Normal 135-[address] [place] [address] [phone] Potassium 5.0 mmol/L Normal 3.5-5.0 Chloride 100 mmol/L Low 101-111 Co2 Carbon Dioxide 30 mmol/L Normal 22-32 Anion Gap 7 mmol/L Normal 2-11 Glucose 89 mg/dL Normal 70-100 Blood Urea Nitrogen 16 mg/dL Normal 6-24 Creatinine 1.04 mg/dL Normal 0.67-1.17 BUN/Creatinine Ratio 15.4 Normal 8-20 Calcium 9.9 mg/dL Normal 8.6-10.3 Total Protein 7.3 g/dL Normal 6.4-8.9 Albumin 4.9 g/dL Normal 3.2-5.2 Globulin 2.4 g/dL Normal 2-4 Albumin/Globulin Ratio 2.0 Normal 1-3 Total Bilirubin 0.70 mg/dL Normal 0.2-1.0 Alkaline Phosphatase 67 U/L Normal 34-104 Alt 357 U/L High 7-52 Ast 116 U/L High 13-39 Egfr Non- 79.1 >60 Egfr 95.7 >60 9 Lipid Profile 05/17/2019 [facility] Triglycerides 203 mg/dL 10 (Trig/Chol/HDL) [address] [place] [address] [phone] Cholesterol 227 mg/dL 11 HDL Cholesterol 45.4 mg/dL 12 LDL Cholesterol 141 mg/dL 13 Liver 05/17/2019 [facility] Direct 0.10 Normal 0.03-0.[address] Bilirubin mg/[place] [address] [phone] Indirect Bilirubin 0.6 mg/dL Normal 0.3-1.0 1 Because ethnic data is not always readily [...] 15-29 5 Kidney failure <15 (or dialysis) 2 Standard intensity warfarin therapeutic range: 2.0-3.0 High intensity warfarin therapeutic range: 2.5-3.5 3 <1:80 (Negative) REFERENCE VALUE <1:80 (Negative) Test Performed by: [facility] [place] [address] Flour Broker: Minh Carvalho M.D. Ph.D.; CLIA# [id number] 4 Interpretation: Weak Positive (1.1-2.9) REFERENCE VALUE <=1.0 (Negative) Test Performed by: [facility] [place] [address] Flour Broker: Minh Carvalho M.D. Ph.D.; CLIA# [id number] 5 REFERENCE VALUE <=20.0 (Negative) Test Performed by: [facility] [place] [address] Flour Broker: Minh Carvalho M.D. Ph.D.; CLIA# [id number] 6 Reference Range: NEGATIVE: 0.0-20.0 EQUIVOCAL: 20.1-24.9 POSITIVE: >=25.0 Antibodies to soluble liver antigen (SLA) appear to be directed against the UGA-suppressor tRNA associated protein. These antibodies are highly specific for autoimmune hepatitis (AIH) and may, rarely, be the only autoantibodies detected in serum from such patients. Antibodies to SLA are most closely associated with AIH type 1; the presence of these antibodies in patients with cryptogenic hepatitis suggests that these patients may have AIH type 1. Anti-SLA antibodies may be detected in some patients with the primary biliary cirrhosis-AIH overlap syndrome, but not in healthy controls. Test Performed by: [facility] [place] [address] [facility] [place] [address] 7 Standard intensity warfarin therapeutic range: 2.0-3.0 High intensity warfarin therapeutic range: 2.5-3.5 8 ADDITIONAL INFORMATION This test was developed and its performance characteristics determined by [facility] in a manner consistent with CLIA requirements. This test has not been cleared or approved by the U.S. Food and Drug Administration. Test Performed by: [facility] [address] [place] [address] Flour Broker: Minh Carvalho M.D. Ph.D.; CLIA# [id number] 9 Because ethnic data is not always [...] 5 Kidney failure <15 (or dialysis) 10 Desirable: <150 Borderline High: 150-199 High: 200-499 Very High: >500 11 Desirable: <200 Borderline High: 200-239 High: >239 12 Low: <40 Desirable: 40-60 High: >60 13 Desirable: <100 Near Optimal: 100-129 Borderline High: 130-159 High: 160-189 Very High: >189 Procedures Date Code Description Status 12/16/2018 [id number] Bone Mineral Density Test Completed Medical Devices Description No Information Available Encounters Type Date Location Provider Dx Diagnosis Office Visit 09/11/2019 [facility] Gastroenterology Yoel Lua94.5 Abnormal results 3:15p MD Yousuf of liver function studies Z79.899 Other senior care (current) drug therapy K21.9 Gastro-esophageal reflux disease without esophagitis F41.9 Anxiety disorder, unspecified R06.02 Shortness of breath Office Visit 08/18/2019 2:00p [facility] Gastroenterology Yoel Lua94.5 Abnormal MD Yousuf results of liver function studies Z79.899 Other senior care (current) drug therapy K21.9 Gastro-esophageal reflux disease without esophagitis F41.9 Anxiety disorder, unspecified Office Visit 07/21/2019 12:00p [facility] Charan Domingo, R51 [facility] Jeffery R06.83 Snoring F31.9 Bipolar disorder, unspecified R20.2 Paresthesia of skin R53.82 Chronic fatigue, unspecified Office Visit 06/09/2019 [place], R25.1 Tremor, 10:00a Neurologic MDedraDDedra unspecified [facility] F31.9 Bipolar disorder, unspecified R20.2 Paresthesia of skin M54.2 Cervicalgia Z79.899 Other senior care (current) drug therapy Office 05/15/2019 [facility] Gastroenterology Winnie K21.9 Gastro-esophageal Visit 2:00p Jahaira reflux disease KYM Donato without esophagitis R94.5 Abnormal results of liver function studies Assessments Date Code Description Provider 09/15/2019 R03.0 Elevated blood-pressure reading, Jonathan Mccabe M.D. without diagnosis of hypertension 09/11/2019 R94.5 Liver function tests abnormal Yoel To MD 09/11/2019 Z79.899 Other senior care (current) drug therapy Yoel To MD 09/11/2019 K21.9 Gastroesophageal reflux disease Yoel To MD 09/11/2019 F41.9 Anxiety disorder, unspecified Yoel To MD 09/11/2019 R06.02 Shortness of breath Yeol To MD 08/18/2019 R94.5 Liver function tests abnormal Yoel To MD 08/18/2019 Z79.899 Other longwall headgate operator (current) drug therapy Yoel To MD 08/18/2019 K21.9 Gastroesophageal reflux disease Yoel To MD 08/18/2019 F41.9 Anxiety disorder, unspecified Yoel To MD 07/21/2019 R51 Headache Charan Domingo M.D. 07/21/2019 R06.83 Snoring Charan Domingo M.D. 07/21/2019 F31.9 Bipolar disorder, unspecified Charan Domingo M.D. 07/21/2019 R20.2 Paresthesia of skin Charan Domingo M.D. 07/21/2019 R53.82 Chronic fatigue, unspecified Charan Domingo M.D. 06/09/2019 R25.1 Tremor, unspecified Charan Domingo M.D. 06/09/2019 F31.9 Bipolar disorder, unspecified Charan Domingo M.D. 06/09/2019 R20.2 Paresthesia of skin Charan Domingo M.D. 06/09/2019 M54.2 Cervicalgia Charan Domingo M.D. 06/09/2019 Z79.899 Other senior care (current) drug therapy Charan Domingo M.D. 05/15/2019 K21.9 Gastroesophageal reflux disease Winnie Donato NP 05/15/2019 R94.5 Liver function tests abnormal Winnie Donato NP Plan of Treatment Future Appointment(s):10/02/2019 2:15 pm - Yoel To MD at [facility] Mopfghfvtgatschi53/13/2020 3:45 pm - Charan Domingo M.D. at [facility]09/15/2019 - Jonathan Mccabe M.D.R03.0 Elevated blood-pressure reading, without diagnosis of hypertensionComments:BP up today and borderline with a free clinic visit; other BPs in 130s/80s. Advised continued lifestyle efforts with exercise, salt avoidance, and weight loss. Begin regular resting home BP checks, preferably with his own machine, and record for review.Follow up:4 weeks with home BP machine and BP readings. Functional Status Description No Information Available Mental Status Description No Information Available Referrals Description No Information Available
--- OUTSIDE RECORDS SUMMARY | 2019-10-06 14:03 | XMS REPORT | Continuity of Care Document ---
:1980 External Reference #:[id number] Author Name Yoel To MD (transmitted by agent of provider Henrietta Thomson) Address [address] [place] [address] Care Team Providers Name Role Phone Jonathan Mccabe III, MD - Internal Care Team Information Food Preparation Kitchen Aide [phone] Medicine Jonathan Mccabe III, MD - Internal Care Team Information Food Preparation Kitchen Aide [phone] Medicine Ross Sahu MD - Care Team Information Food Preparation Kitchen Aide [phone] Otolaryngology Ramu Hurley MD - Urology Care Team Information Food Preparation Kitchen Aide [phone] Luis A Luna MD - Urology Care Team Information Food Preparation Kitchen Aide Winnie Donato NP - Family Care Team Information Food Preparation Kitchen Aide [phone] Charan Domingo M.D. - Neurology Care Team Information Food Preparation Kitchen Aide [phone] Pablo Bailey MD - Orthopaedic Care Team Information Food Preparation Kitchen Aide [phone] Surgery Problems Active Problems Provider Date Bipolar I disorder Cristo Taho M.D. Onset: 10/08/2015 Gastroesophageal reflux disease Winnie [...] with fecal urgency Winnie Donato NP Onset: 12/27 Note: one time only Chronic fatigue syndrome Charan Domingo M.D. Onset: 07/21/2019 Difficulty breathing Charan Domingo M.D. Onset: 07/21/2019 Headache Charan Domingo M.D. Onset: 07/21/2019 Neck pain Charan Domingo M.D. Onset: 06/09/2019 Skin sensation disturbance Charan Domingo M.D. Onset: 06/09/2019 Abnormal involuntary movement Charan Domingo M.D. Onset: 06/09/2019 Social History Type Date Description Comments Sex Unknown Tobacco Use Start: Unknown Never Smoked Cigarettes Smoking Status Reviewed: 08/18/19 Never Smoked Cigarettes ETOH Use Denies alcohol use Tobacco Use Start: Unknown Patient has never smoked Recreational Drug Use Never Used Drugs Exercise Type/Frequency Exercises regularly Allergies, Adverse Reactions, Alerts Description No Known Drug Allergies Medications Active Medications SIG Qnty Indications Ordering Provider Date Diclofenac Sodium apply 4 times 100gm M25.531 Karin Pantoja, 06/27/2018 1% Gel daily as needed M.DDedra for pain Aspirin Ec 1 tab po daily Unknown 05/21/2018 81mg Tablets Pantoprazole Sodium 1 by mouth 30tabs Winnie Campo 20mg every day KYM Donato Tablets DR Multivit daily Unknown Liquid Biotin as needed, not Unknown 1mg Capsules daily Systane apply twice Unknown 0.4-0.3% Solution daily as needed for dry eyes Gas-X Unknown 80mg Chewtabs Albuterol Sulfate HFA Unknown 108(90Base) mcg/Act Aerosol Claritin 1 by mouth Unknown 10mg Capsules every day History Medications Fluoxetine HCL bid Other Ordering Provider 06/02/2019 - 06/08/2019 10mg Capsules Influenza,Unspecified Unknown - 07/28/2016 Injection Medications Administered in Office Medication SIG Qnty Indications Ordering Provider Date Records Fee Ross Salgado M.D. 08/18/2019 Injection Records Fee Yoel To MD 08/12/2019 Injection Records Fee Karin Pantoja M.D. 07/08/2019 Injection PPD Nurse Visit C 04/02/2017 Injection Immunizations CPT Code Status Date Vaccine Reaction Lot # [id number] Given 12/31/2018 Meningococcal Immunization 51877 Given 07/13/2017 Influenza Virus Vaccine, No immediate reaction [id number] Quadrivalent, Split, noted. Preservative Free 19235 Given 08/13/2012 Tetanus And Diptheria (Td) For Adult Use Preservative Free Vital Signs Date Vital Result Comment 08/18/2019 2:02pm Height 65 inches 5'5" Weight 180.00 lb Heart Rate 64 /min BP Systolic Sitting 140 mmHg BP Diastolic Sitting 82 mmHg Respiratory Rate 16 /min BMI (Body Mass Index) 30.0 kg/m2 07/21/2019 11:47am Height 65 inches 5'5" Weight 181.00 lb Heart Rate 94 /min BP Systolic 140 mmHg BP Diastolic 100 mmHg BMI (Body Mass Index) 30.1 kg/m2 Results Test Acquired Date Facility Test Result H/L Range Note Laboratory test 06/06/2019 [facility] Liver-Kidney <5.0 U [address] [facility] [place] [address] Abs [phone] Liver Function 06/06/2019 [facility] Total Protein 7.6 g/dL Normal 6.4-8.9 Panel [address] [place] [address] [phone] Albumin 4.9 g/dL Normal 3.2-5.2 Globulin 2.7 g/dL Normal 2-4 Albumin/Globulin Ratio 1.8 Normal 1-3 Total Bilirubin 0.50 mg/dL Normal 0.2-1.0 Direct Bilirubin 0.10 mg/dL Normal 0.03-0.18 Indirect Bilirubin 0.4 mg/dL Normal 0.3-1.0 Alkaline Phosphatase 69 U/L Normal 34-104 Alt 354 U/L High 7-52 Ast 120 U/L High 13-39 Laboratory test 06/06/2019 [facility] Soluble Liver <20.1 U [address] [place] [address] [phone] Inr/Protime 06/06/2019 [facility] Inr 1.03 Normal 0.82- [address]09 [place] [address] [phone] Laboratory test 06/06/2019 [facility] Copper, Serum 0.92 g/mL 0.75- [address] [place] [address] [phone] CBC No Diff 05/17/2019 [facility] White Blood 7.0 10^3/uL Normal 3.5-[address] Count 0.8 [place] [address] [phone] Red Blood Count 4.67 10^6/uL Normal 4.18-5.48 Hemoglobin 15.4 g/dL Normal 14.0-18.0 Hematocrit 44 % Normal 42-52 Mean Corpuscular Volume 93 fL Normal 80-94 Mean Corpuscular Hemoglobin 33 pg High 27-31 Mean Corpuscular HGB Conc 35 g/dL Normal 31-36 Red Cell Distribution Width 13 % Normal 10-15 Platelet Count 293 10^3/uL Normal 150-450 Mean Platelet Volume 8.4 fL Normal 7.4-10.4 Comp Metabolic 05/17/2019 [facility] Sodium 137 mmol/L Normal 135-[address] [place] [address] [phone] Potassium 5.0 mmol/L Normal 3.5-5.0 Chloride 100 [...] Egfr Non- 79.1 >60 Egfr 95.7 >60 5 Lipid Profile 05/17/2019 [facility] Triglycerides 203 mg/dL 6 (Trig/Chol/HDL) [address] [place] [address] [phone] Cholesterol 227 mg/dL 7 HDL Cholesterol 45.4 mg/dL 8 LDL Cholesterol 141 mg/dL 9 Liver 05/17/2019 [facility] Direct 0.10 Normal 0.03-0.[address] Bilirubin mg/[place] [address] [phone] Indirect Bilirubin 0.6 mg/dL Normal 0.3-1.0 1 REFERENCE VALUE <=20.0 (Negative) Test Performed by: [facility] [place] [address] Candle Cutter: Minh Carvalho M.D. Ph.D.; CLIA# [id number] 2 Reference Range: NEGATIVE: 0.0-20.0 EQUIVOCAL: 20.1-24.9 POSITIVE: [...] not in healthy controls. Test Performed by: [facility] [address] [place] [address] 3 Standard intensity warfarin therapeutic range: 2.0-3.0 High intensity warfarin therapeutic range: 2.5-3.5 4 ADDITIONAL INFORMATION This test was developed and its performance characteristics determined by [facility] in a manner consistent with CLIA requirements. This test has not been cleared or approved by the U.S. Food and Drug Administration. Test Performed by: [facility] - [address] [address] Candle Cutter: Minh Carvalho M.D. Ph.D.; [facility]# [id number] 5 Because ethnic data is not always readily [...] 15-29 5 Kidney failure <15 (or dialysis) 6 Desirable: <150 Borderline High: 150-199 High: 200-499 Very High: >500 7 Desirable: <200 Borderline High: 200-239 High: >239 8 Low: <40 Desirable: 40-60 High: >60 9 Desirable: <100 Near Optimal: 100-129 Borderline High: 130-159 High: 160-189 Very High: >189 Procedures Date Code Description Status 12/16/2018 [id number] Bone Mineral Density Test Completed Medical Devices Description No Information Available Encounters Type Date Location Provider Dx Diagnosis Office Visit 07/21/2019 [facility] Domingo M.D. R51 Headache 12:00p [facility] R06.83 Snoring F31.9 Bipolar disorder, unspecified R20.2 Paresthesia of skin R53.82 Chronic fatigue, unspecified Office Visit 06/09/2019 [facility] R25.1 Tremor, 10:00a Neurologic Jeffery unspecified [facility] F31.9 Bipolar disorder, unspecified R20.2 Paresthesia of skin M54.2 Cervicalgia Z79.899 Other termination clerk (current) drug therapy Office 05/15/2019 [facility] Gastroenterology Winnie K21.9 Gastro-esophageal Visit 2:00p Jahaira reflux disease KYM Donato without esophagitis R94.5 Abnormal results of liver function studies Assessments Date Code Description Provider 08/18/2019 R94.5 Liver function tests abnormal Yoel To MD 08/18/2019 Z79.899 Other termination clerk (current) drug therapy Yoel oT MD 08/18/2019 K21.9 Gastroesophageal reflux disease Yoel [...] Cervicalgia Charan Domingo M.D. 06/09/2019 Z79.899 Other termination clerk (current) drug therapy Charan Domingo M.D. 05/15/2019 K21.9 Gastroesophageal reflux disease Winnie Donato NP 05/15/2019 R94.5 Liver function tests abnormal Winnie Donato NP Plan of Treatment Future Appointment(s):10/02/2019 2:15 pm - Yoel To MD at [facility] Fcqdeetzjvovhuhs56/13/2020 3:45 pm - Charan Domingo M.D. at [facility]08/18/2019 - Yoel To MDR94.5 Abnormal results of liver function studiesNew Xrays:Chest PA & Lat 2 VWS, Ordered: Follow up:f/u 6 wgomwZ68.899 Other correction (current) drug therapyFollow up:f/u 6 lendxL41.9 Gastro-esophageal reflux disease without esophagitisFollow up:f/u 6 qqjymV96.9 Anxiety disorder, unspecifiedFollow up:f/u 6 weeks Functional Status Description No Information Available Mental Status Description No Information Available Referrals Description No Information Available
--- OUTSIDE RECORDS SUMMARY | 2019-10-06 14:03 | XMS REPORT | Continuity of Care Document ---
:1980 External Reference #:[id number] Author Name Yoel To MD (transmitted by agent of provider Roseann Buckner) Address [address] [place] [address] Care Team Providers Name Role Phone Jonathan Mccabe III, MD - Internal Care Team Information Hair Assistant [phone] Medicine Jonathan Mccabe III, MD - Internal Care Team Information Hair Assistant Medicine Ross Sahu MD - Care Team Information Hair Assistant [phone] Otolaryngology Ramu Hurley MD - Urology Care Team Information Hair Assistant [phone] Luis A Luna MD - Urology Care Team Information Hair Assistant Winnie Dontao NP - Family Care Team Information Hair Assistant [phone] Charan Domingo M.D. - Neurology Care Team Information Hair Assistant Pablo Bailey MD - Orthopaedic Care Team Information Hair Assistant Surgery Problems Active Problems Provider Date Bipolar [...] on no psychiatric meds Abnormal involuntary movement hCaran Domingo M.D. Onset: 06/09/2019 Skin sensation disturbance Charan Domingo M.D. Onset: 06/09/2019 Neck pain Charan Domingo M.D. Onset: 06/09/2019 Headache Charan Domingo M.D. Onset: 07/21/2019 Difficulty breathing Charan Domingo M.D. Onset: 07/21/2019 Chronic fatigue syndrome Charan Domingo M.D. Onset: 07/21/2019 Social History Type Date Description Comments Sex Unknown Tobacco Use Start: Unknown Never Smoked Cigarettes Smoking Status Reviewed: 09/11/19 Never Smoked Cigarettes ETOH Use Denies alcohol [...] Code Status Date Vaccine Reaction Lot # [id number] Given 12/31/2018 Meningococcal Immunization 14761 Given 07/13/2017 Influenza Virus Vaccine, No immediate reaction [id number] Quadrivalent, Split, noted. Preservative Free 08020 Given 08/13/2012 Tetanus And Diptheria (Td) For Adult Use Preservative Free Vital Signs Date Vital Result Comment 09/11/2019 3:25pm Height 65 inches 5'5" Weight 183.38 lb Heart Rate 94 /min BP Systolic 133 mmHg BP Diastolic 82 mmHg Respiratory Rate 18 /min O2 % BldC Oximetry 97 % BMI (Body Mass Index) 30.5 kg/m2 08/18/2019 2:02pm Height 65 inches 5'5" Weight 180.00 lb Heart Rate 64 /min BP Systolic Sitting 140 mmHg BP Diastolic Sitting 82 mmHg Respiratory Rate 16 /min BMI (Body Mass Index) 30.0 kg/m2 Results Test Acquired Date Facility Test Result H/L Range Note CBC No Diff 08/18/2019 [facility] White Blood 7.3 10^3/uL Normal 3.5-10.[address] [place] [address] [phone] Red Blood Count 4.66 10^6/uL Normal 4.18-5.48 Hemoglobin 15.2 g/dL Normal 14.0-18.0 Hematocrit 45 % Normal 42-52 Mean Corpuscular Volume 96 fL High 80-94 Mean Corpuscular Hemoglobin 33 pg High 27-31 Mean Corpuscular HGB Conc 34 g/dL Normal 31-36 Red Cell Distribution Width 13 % Normal 10-15 Platelet Count 292 10^3/uL Normal 150-450 Mean Platelet Volume 9.2 fL Normal 7.4-10.4 Comp Metabolic 08/18/2019 [facility] Sodium 136 mmol/L Normal 135-[address] [place] [address] [phone] Potassium 4.3 mmol/L Normal 3.5-5.0 Chloride 101 [...] >60 Egfr 97.9 >60 1 Inr/Protime 08/18/2019 [facility] Inr 0.91 Normal 0.82-1.[address] [place] [address] [phone] Laboratory test 08/18/2019 [facility] Nuclear AB <1:[address] ([place]azmín) By [place] ([place] [address] Igg e) [phone] Anti Nuclear Antibody 1.2 U Abnormal 4 Laboratory test 06/06/2019 [facility] Liver-Kidney <5.0 U [address] [place] [address] [phone] Liver Function 06/06/2019 [facility] Total Protein 7.6 g/dL Normal 6.4-[address] [place] [address] [phone] Albumin 4.9 g/dL Normal 3.2-5.2 Globulin 2.7 g/dL Normal 2-4 Albumin/Globulin Ratio 1.8 Normal 1-3 Total Bilirubin 0.50 mg/dL Normal 0.2-1.0 Direct Bilirubin 0.10 mg/dL Normal 0.03-0.18 Indirect Bilirubin 0.4 mg/dL Normal 0.3-1.0 Alkaline Phosphatase 69 U/L Normal 34-104 Alt 354 U/L High 7-52 Ast 120 U/L High 13-39 Laboratory test 06/06/2019 [facility] Soluble Liver <20.1 U [address] [place] [address] [phone] Inr/Protime 06/06/2019 [facility] Inr 1.03 Normal 0.82- [address] [place] [address] [phone] Laboratory test 06/06/2019 [facility] Copper, Serum 0.92 g/mL 0.75- [address] [place] [address] [phone] CBC No Diff 05/17/2019 [facility] White Blood 7.0 10^3/uL Normal 3.5-[address] DR[address] Count 0.8 [place] [address] [phone] Red Blood Count 4.67 10^6/uL Normal 4.18-5.48 Hemoglobin 15.4 g/dL Normal 14.0-18.0 Hematocrit 44 % Normal 42-52 Mean Corpuscular Volume 93 fL Normal 80-94 Mean Corpuscular Hemoglobin 33 pg High 27-31 Mean Corpuscular HGB Conc 35 g/dL Normal 31-36 Red Cell Distribution Width 13 % Normal 10-15 Platelet Count 293 10^3/uL Normal 150-450 Mean Platelet Volume 8.4 fL Normal 7.4-10.4 Comp Metabolic 05/17/2019 [facility] Sodium 137 mmol/L Normal 135-[address] [place] [address] [phone] Potassium 5.0 mmol/L Normal 3.5-5.0 Chloride 100 [...] Egfr 95.7 >60 9 Lipid Profile 05/17/2019 [facility] Triglycerides 203 mg/dL 10 (Trig/Chol/HDL) [address] [place] [address] [phone] Cholesterol 227 mg/dL 11 HDL Cholesterol 45.4 mg/dL 12 LDL Cholesterol 141 mg/dL 13 Liver 05/17/2019 [facility] Direct 0.10 Normal 0.03-0.[address] Bilirubin mg/[place] [address] [phone] Indirect Bilirubin 0.6 mg/dL Normal 0.3-1.0 1 [...] REFERENCE VALUE <1:80 (Negative) Test Performed by: [facility] [place] [address] Oxygraph Operator: Minh Carvalho M.D. Ph.D.; CLIA# [id number] 4 Interpretation: Weak Positive (1.1-2.9) REFERENCE VALUE <=1.0 (Negative) Test Performed by: [facility] [place] [address] Oxygraph Operator: Minh Carvalho M.D. Ph.D.; CLIA# [id number] 5 REFERENCE VALUE <=20.0 (Negative) Test Performed by: [place] [address] Oxygraph Operator: Minh Carvalho M.D. Ph.D.; CLIA# [id number] 6 Reference Range: NEGATIVE: 0.0-20.0 EQUIVOCAL: 20.1-24.9 [...] not in healthy controls. Test Performed by: [employer] [facility] [place] [address] [place] [address] Standard intensity warfarin therapeutic range: 2.0-3.0 High intensity warfarin therapeutic range: 2.5-3.5 8 ADDITIONAL INFORMATION This test was developed and its performance characteristics determined by [facility] in a manner consistent with CLIA requirements. This test has not been cleared or approved by the U.S. Food and Drug Administration. Test Performed by: [facility] [address], [place] [address] Oxygraph Operator: Minh Carvalho M.D. 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 06/09/2019 Z79.899 Other snf (current) drug therapy Charan Domingo M.D. 05/15/2019 K21.9 Gastroesophageal reflux disease Winnie Donato NP 05/15/2019 R94.5 Liver function tests abnormal Winnie Donato NP Plan of Treatment Future Appointment(s):10/02/2019 2:15 pm - Yoel To MD at [facility] Ybkcgdeenursyhsc14/13/2020 3:45 pm - Charan Domingo M.D. at [place] [facility] Functional Status Description No Information Available Mental Status Description No Information Available Referrals Description No Information Available
--- OUTSIDE RECORDS SUMMARY | 2019-10-06 14:03 | XMS REPORT ---
:1980 Author Organization [facility] Support Name Relationship Address Phone Unavailable Unavailable Unavailable Unavailable Allergies, Adverse Reactions, Alerts Allergy Code CodeSystem Reaction Severity Criticality Status Start Substance Date Moderate Medications Medication Medication Medication Start Stop Route Dose Status Fill Code CodeSystem Date Date Instructions fluoxetine 625874 RxNorm 2019-04 oral 10 mg active for 30 -05 capsule day(s) aripiprazole 523684 RxNorm 2019-05 oral 10 mg 1 active Take 1 tablet -01 tablet once a day once a for 30 day(s) day Problems Problem Name Code CodeSystem Alternate Alternate Start End Status Narrative Code CodeSystem Date Date Schizoaffective 57437295 SNOMED-CT Active disorder, manic 3-22 type Schizoaffective 05421025 SNOMED-CT Active disorder, manic 3-22 type Relevant diagnostic tests/laboratory data Narrative No Information Procedures Procedure Code CodeSystem Target Date of Status Service Device Device Device Name Site Procedure Delivery Code Name UID Location Psychotherap [id number] SNOMED-CT () 2019-01-15 complete Mental y, 45 04 d Health- minutes with [facility] patient [address], [id number] SNOMED-CT () 2019-02-11 complete Mental d Health- [address], [id number] [id number] SNOMED-CT () 2019-03-31 complete Mental d Health- [address], [id number] Psychiatric 970366 SNOMED-CT () 2019-04-17 complete Mental diagnostic 85 d Health- evaluation [facility] with [address], [id number] [phone] Office or [id number] SNOMED-CT () 2019-05-13 complete Mental other 7 d Health- outpatient [facility] visit for [address], management [facility] [id number] patient, [id number] which requires at least 2 of these 3 farrell components: An expanded problem focused history; An expanded problem focused examination; Medical decision making of low Psychotherap 851609 SNOMED-CT () 2019-05-13 complete Mental y, 45 04 d Health- [facility] with Marc patient [address], [id number] [phone] SNOMED-CT () 2019-08-01 complete Public d Health- [address], [address] [phone] SNOMED-CT () 2019-08-01 complete Public d [address], [address] [phone] SNOMED-CT () 2019-08-[address], [address] [phone] SNOMED-CT () 2019-08-01 complete Public d [address], [address] [phone] Encounters/Encounter Diagnoses Encounter Encounter Diagnosis Diagnosis Name Diagnosis Date of Service Name Code Code CodeSystem Diagnosis Delivery Location [id number] Schizoaffective SNOMED-CT 2019-08-01 Behavioral disorder, manic Health type Clinic [address] [place] [address], [address] Vital Signs No Information Social History Element Description Description Start End Code CodeSystem AdditionalInfo Date Date SexAssignedAtBirth Male 1980-0 M AdministrativeGender 05-04 Hospital Discharge Instructions Reason For Referral Medical Equipment FDA Assessments
[2019-10-06 14:43] VITALS: BP 131/100
--- NOTE | 2019-10-07 11:27 | ED ---
Lower Extremity - HPI Summary HPI Summary: Pt. seen on 10/06/2019. Pt. is a 39 y.o male who presents to the ER for right hip pain x 1 day. Pt. states he woke up with hip pain without known injury. Denies falls. Pt. states pain is worse with sitting on toilet. Pain is better with standing. Denies recent illness, abd. pain, urinary sxs, numbness, tingling , weakness. Has not taken any OTC pain medications. Sxs are mild in severity. - History of Current Complaint Chief Complaint: EDHipPelvisInjury Stated Complaint: PAIN IN RIGHT HIP Hx Obtained From: Patient Pain Intensity: 0 Pain Scale Used: 0-10 Numeric - Allergies/Home Medications Allergies/Adverse Reactions: Allergies Allergy/AdvReac Type Severity Reaction Status Date / Time latex Allergy Rash Verified 10/07/19 14:53 Home Medications: Home Medications Diclofenac 1% GEL (NF) [Voltaren 1% GEL (NF)] 1 applic TOPICAL QID PRN 01/15/19 [History Confirmed 10/07/19] Pantoprazole TAB (NF) [Protonix TAB (NF)] 20 mg PO DAILY 01/15/19 [History Confirmed 10/07/19] Albuterol HFA INHALER* [Ventolin HFA Inhaler*] 2 puff INH Q4H PRN 10/07/19 [ History Confirmed 10/07/19] Aspirin EC TAB* [Ecotrin EC Low Dose 81 MG*] 81 mg PO DAILY 10/07/19 [History Confirmed 10/07/19] Biotin 1 mg PO . NEEDED 10/07/19 [History Confirmed 10/07/19] Fluticasone-Salmeterol 100-50* [Advair Diskus 100-50*] 1 puff INH BID 10/07/19 [ History Confirmed 10/07/19] LoraTADine TAB(NF) [Claritin 10 MG TAB(NF)] 10 mg PO DAILY 10/07/19 [History Confirmed 10/07/19] Multivitamins/Minerals TAB* [Theragran/minerals TAB*] 1 tab PO DAILY 10/07/19 [ History Confirmed 10/07/19] Propylene Glycol/Peg 400/Pf [Systane 0.3-0.4% Eye Drops] 1 drop BOTH EYES BID PRN 10/07/19 [History Confirmed 10/07/19] Simethicone [Gas-X Extra Strength] 80 mg PO DAILY PRN 10/07/19 [History Confirmed 10/07/19] PMH/Surg Hx/FS Hx/Imm Hx Previously Healthy: Yes Endocrine/Hematology History: Denies: Hx Diabetes Cardiovascular History: Denies: Hx Pacemaker/ICD GI History: Reports: Hx Gastroesophageal Reflux Disease History: Reports: Other Problems/Disorders - Pt relates a history of periodic incontinence Denies: Hx Renal Disease Musculoskeletal History: Reports: Hx Back Problems, Other Musculoskeletal History - Pt relates a history of bilateral forearm, knee, and ankle problems Denies: Hx Osteoporosis Sensory History: Reports: Hx Contacts or Glasses - Pt states he wears glasses, but does not have them with him at this time Denies: Hx Legally Blind, Hx Hearing Aid Opthamlomology History: Reports: Hx Contacts or Glasses - Pt states he wears glasses, but does not have them with him at this time Denies: Hx Legally Blind Psychiatric History: Reports: Hx Anxiety, Hx Depression, Hx Panic Disorder - ATTACKS ON OCCASION, Hx Inpatient Treatment, Hx Community Mental Health Tx, Hx Bipolar Disorder, Hx of Violent Episodes Against Others Denies: Hx Eating Disorder - Surgical History Surgery Procedure, Year, and Place: Pt states he had "adenoid surgery" as a child Infectious Disease History: No Infectious Disease History: Denies: Traveled Outside the [place] in Last 30 Days - Family History Known Family History: Positive: Non-Contributory Family History: patient does not wish to provide family hx at this time - Social History Occupation: Unemployed Lives: Alone Alcohol Use: None Hx Substance Use: No Substance Use Type: Reports: Sedatives Substance Use Comment - Amount & Last Used: Pt denies any recreational drug use , but tested positive for opiates Hx Tobacco Use: No Smoking Status (MU): Unknown if Ever Smoked Review of Systems Constitutional: Negative Negative: Fever Cardiovascular: Negative Respiratory: Negative Gastrointestinal: Negative Genitourinary: Negative Positive: Other - Righ hip pain Skin: Negative Neurological/Mental Status: Negative Negative: Weakness, Paresthesia, Numbness All Other Systems Reviewed And Are Negative: Yes Physical Exam Triage Information Reviewed: Yes Vital Signs On Initial Exam: Initial Vitals Temp Pulse Resp BP Pulse Ox 98.7 F 91 19 155/127 97 10/06/19 12:54 10/06/19 12:54 10/06/19 12:54 10/06/19 12:54 10/06/19 12:54 Vital Signs Reviewed: Yes Appearance: Positive: Well-Appearing - Pt. sitting in chair in NAD. Exam performed with pt.'s nurseMerlin. Skin: Positive: Warm, Dry Head/Face: Positive: Normal Head/Face Inspection Eyes: Positive: Normal, EOMI Neck: Positive: Supple Respiratory/Lung Sounds: Positive: Clear to Auscultation, Breath Sounds Present Cardiovascular: Positive: Normal, RRR Musculoskeletal: Positive: Other - 5/5 strength in bilateral LEs. No palpable back pain. Mild pain over posterior proximal thigh. No leg edema or calf pain. Neurological: Positive: Normal, CN Intact II-III Psychiatric: Positive: Affect/Mood Appropriate Procedures - Sedation Patient Received Moderate/Deep Sedation with Procedure: No Diagnostics - Vital Signs Vital Signs Temp Pulse Resp BP Pulse Ox 10/06/19 14:42 97.5 F 90 16 131/100 97 10/06/19 12:54 98.7 F 91 19 155/127 97 - Laboratory Lab Statement: Any lab studies that have been ordered have been reviewed, and results considered in the medical decision making process. Lower Extremity Course/Dx - Course Course Of Treatment: Pt. with right hip pain. Xray shows arthritic changes without acute findings per radiology. Motrin given for pain. Suspect muscular pain in nature. To ice, rest and elevate. Will f.u with pcp if pain persist. Pt. understands and agrees with plan. - Diagnoses Differential Diagnosis/HQI/PQRI: Positive: Bursitis, Contusion, Fracture (Closed ), Sprain, Strain Provider Diagnoses: Hip pain Discharge ED - Sign-Out/Discharge Documenting (check all that apply): Patient Departure - Discharge Plan Condition: Good Disposition: HOME Patient Education Materials: Muscle Strain (ED), Hip Pain (ED) Referrals: Jonathan Mccabe MD [Primary Care Provider] - Additional Instructions: Follow up with PCP within one week if pain persist Ice and elevate leg Recommend ibuprofen 400mg-600mg every 6 hours for pain Gentle stretching Return to ER if symptoms change or worsen - Billing Disposition and Condition Condition: GOOD Disposition: Home - Attestation Statements Provider Attestation: I was available for consultation for this patient. I did not evaluate the patient or participate in any medical decision making or disposition decisions unless I am specifically named in the chart as having consulted on the patient. If I have consulted on the patient, please see my own ED note on the patient encounter. Melisa Arteaga MD
== END 2019-10-06 14:37 | disposition home or self-care (01) ==
LOC: ED 12:34
DX: M25.551 Pain in right hip (principal); K21.9 Gastro-esophageal reflux disease without esophagitis; F41.9 Anxiety disorder, unspecified; F32.9 Major depressive disorder, single episode, unspecified; Z79.82 Long term (current) use of aspirin; Z79.899 Other long term (current) drug therapy; Z91.040 Latex allergy status
CPT/HCPCS: 99282; A9270-GY

== ENCOUNTER 2019-10-07 11:21 | Inpatient (IN) | payer MEDICARE, MEDICAID ==
--- NOTE | 2019-10-07 11:24 | ED ---
Lower Extremity - History of Current Complaint Stated Complaint: 945 PER EMS Time Seen by Provider: 10/07/19 11:23 Hx Obtained From: Patient - Allergies/Home Medications Allergies/Adverse Reactions: Allergies Allergy/AdvReac Type Severity Reaction Status Date / Time LATEX Allergy Rash Uncoded 06/25/19 10:24 Home Medications: Home Medications Ibuprofen 600 mg PO TID PRN #30 tablet MDD 3 06/02/18 [Rx Confirmed 01/15/19] Nystatin TOP POWDER* 1 applic TOPICAL TID 5 Days #1 btl 12/05/18 [Rx Confirmed 01/15/19] Diclofenac 1% GEL (NF) [Voltaren 1% GEL (NF)] 1 applic TOPICAL BID PRN 01/15/19 [History Confirmed 01/15/19] Pantoprazole TAB (NF) [Protonix TAB (NF)] 20 mg PO DAILY 01/15/19 [History Confirmed 01/15/19] Tamsulosin CAP* [Flomax CAP*] 0.4 mg PO DAILY 01/15/19 [History Confirmed ] Pantoprazole TAB * [Protonix TAB*] 40 mg PO DAILY tab 02/07/19 [Rx] PMH/Surg Hx/FS Hx/Imm Hx Endocrine/Hematology History: Denies: Hx Diabetes Cardiovascular History: Denies: Hx Pacemaker/ICD GI History: Reports: Hx Gastroesophageal Reflux Disease History: Reports: Other Problems/Disorders - Pt relates a history of periodic incontinence Denies: Hx Renal Disease Musculoskeletal History: Reports: Hx Back Problems, Other Musculoskeletal History - Pt relates a history of bilateral forearm, knee, and ankle problems Denies: Hx Osteoporosis Sensory History: Reports: Hx Contacts or Glasses - Pt states he wears glasses, but does not have them with him at this time Denies: Hx Legally Blind, Hx Hearing Aid Opthamlomology History: Reports: Hx Contacts or Glasses - Pt states he wears glasses, but does not have them with him at this time Denies: Hx Legally Blind Psychiatric History: Reports: Hx Anxiety, Hx Depression, Hx Panic Disorder - ATTACKS ON OCCASION, Hx Inpatient Treatment, Hx Community Mental Health Tx, Hx Bipolar Disorder, Hx of Violent Episodes Against Others Denies: Hx Eating Disorder - Surgical History Surgery Procedure, Year, and Place: Pt states he had "adenoid surgery" as a child - Family History Known Family History: Positive: Non-Contributory Family History: patient does not wish to provide family hx at this time - Social History Alcohol Use: None Hx Substance Use: No Substance Use Type: Reports: Sedatives Substance Use Comment - Amount & Last Used: Pt denies any recreational drug use , but tested positive for opiates Hx Tobacco Use: No Smoking Status (MU): Unknown if Ever Smoked Discharge ED - Discharge Plan Referrals: Jonathan Mccabe MD [Primary Care Provider] -
[2019-10-07 11:52] LABS: ABS Basophils 0.1 10^3/ul (0-0.2); ABS Eosinophils 0.1 10^3/ul (0-0.6); ABS Monocytes 0.4 10^3/ul (0-0.8); ABS Neutrophils 6.4 10^3/ul (1.5-7.7); Eosinophil % 0.8 %; Hematocrit 43 % (42-52); Hemoglobin 15.1 g/dL (14.0-18.0); Lymphocyte % 22.7 %; Mean Corpuscular HGB Conc 35 g/dL (31-36); Mean Corpuscular Hemoglobin 33 pg (27-31); Mean Corpuscular Volume 94 fL (80-94); Mean Platelet Volume 8.1 fL (7.4-10.4); Nucleated Red Blood Cells % 0.1; Platelet Count 309 10^3/uL (150-450); Red Blood Count 4.58 10^6 /uL (4.18-5.48); Red Cell Distribution Width 13 % (10-15)
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
[2019-10-07 12:15] LABS: ALT 212 U/L (7-52); AST 75 U/L (13-39); Albumin 4.8 g/dL (3.2-5.2); Albumin/Globulin Ratio 1.8 (1-3); Alkaline Phosphatase 86 U/L (34-104); Anion Gap 8 mmol/L (2-11); BUN/Creatinine Ratio 21.7 (8-20); Blood Urea Nitrogen 23 mg/dL (6-24); CO2 Carbon Dioxide 27 mmol/L (22-32); Calcium 9.3 mg/dL (8.6-10.3); Chloride 99 mmol/L (101-111); EGFR African American 93.6 (>60); EGFR Non-African American 77.4 (>60); Globulin 2.7 g/dL (2-4); Glucose 187 mg/dL (70-100); Potassium 3.7 mmol/L (3.5-5.0); Sodium 134 mmol/L (135-145); Total Protein 7.5 g/dL (6.4-8.9)
[2019-10-07 12:51] LABS: Urine Appearance Clear; Urine Bilirubin Negative (Negative); Urine Blood 1+ (Negative); Urine Color Straw; Urine Glucose Negative (Negative); Urine Ketones Negative (Negative); Urine Nitrite Negative (Negative); Urine Protein Negative (Negative); Urine Specific Gravity 1.009 (1.010-1.030); Urine Urobilinogen Negative (Negative)
[2019-10-07 12:56] LABS: Urine Bacteria Absent (Absent); Urine Red Blood Cell Trace(0-2/hpf) (Absent); Urine White Blood Cell Trace(0-5/hpf) (Absent)
[2019-10-07 12:56] LABS: Acetaminophen < 15 mcg/mL; Alcohol < 10 mg/dL (<10); Salicylate < 2.50 mg/dL (<30)
[2019-10-07 13:05] LABS: TSH (Thyroid Stimulating Horm) 1.58 mcIU/mL (0.34-5.60)
[2019-10-07 13:13] LABS: Urine Benzodiazepine Screen None Detected (None Detect); Urine Opiates Screen None Detected (None Detect)
[2019-10-07] MEDS ORDERED: chlorproMAZINE TAB* 100 MG PO PRN (13:47)
[2019-10-07] MEDS ORDERED: Albuterol HFA INHALER* 8 gm MDI INH PRN (13:47)
[2019-10-07] MEDS ORDERED: OLANzapine TAB*ODT* 10 MG TAB PO ONE (15:00)
[2019-10-07] MEDS: OLANzapine TAB*ODT* 10 MG TAB ONE ×2 (15:24→15:25)
[2019-10-07] MEDS: ARIPiprazole TAB* 5 MG PO SCH (15:26)
[2019-10-07] MEDS ORDERED: OLANzapine TAB*ODT* 5 MG PO PRN (15:37)
[2019-10-07] MEDS ORDERED: LORazepam TAB(*) 1 MG PO PRN (18:08)
[2019-10-07] MEDS ORDERED: Benztropine TAB* 1 MG PO PRN (18:08)
[2019-10-07] MEDS: Mometasone/Formoter 100/5 MDI INH SCH (21:34)
[2019-10-07] MEDS: Divalproex DR TAB(*) 500 MG PO SCH (21:34)
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
[2019-10-08] MEDS: Multivitamins/Minerals TAB PO SCH (09:04)
[2019-10-08] MEDS: Aspirin EC TAB* 81 MG TAB.EC PO SCH (09:04)
[2019-10-08] MEDS: Pantoprazole TAB * 40 MG TAB PO SCH (09:04)
[2019-10-08] MEDS: Cetirizine* 10 MG TAB PO SCH (09:04)
[2019-10-08] MEDS: Divalproex DR TAB(*) 500 MG PO SCH (09:05)
[2019-10-08] MEDS ORDERED: Paliperidone ER TAB* 3 MG TAB.ER ONE (09:07)
[2019-10-08] MEDS: Paliperidone ER TAB* 9 MG TAB.ER PO SCH (09:07)
[2019-10-08] MEDS ORDERED: Paliperidone ER TAB* 6 MG TAB.ER ONE (09:07)
[2019-10-08] MEDS: Mometasone/Formoter 100/5 MDI INH SCH ×2 (09:09→20:58)
[2019-10-08] MEDS: ARIPiprazole TAB* 5 MG PO SCH (09:36)
[2019-10-08] MEDS: Lithium Carbonate CAP 150 MG ** CAPSULE PO SCH (20:57)
[2019-10-09] MEDS: Acetaminophen TAB* 325 MG PO PRN (05:20)
[2019-10-09 07:22] LABS: HDL Cholesterol 45.7 mg/dL
--- NOTE | 2019-10-09 08:42 | PN ---
Subjective - Subjective Date of Service: 10/09/19 Service Type: 24380 Hosp care 35 min high complexity Subjective: Nursing Report: Patient was visible on unit CC: "Its air pollution that makes me angry" Patient was seen and evaluated today. The patient reported that he has a case with the court about mental health, immigration and air pollution and needs to get home to work on his case. He expressed that the noise of cars and high frequencies are the cause of mental health. He reported that he would like compensation for damages for being in the mental health unit. Patient reported that he is tolerating medications without side effects. Objective - General Observations Appearance: Disheveled Appears Stated Age: Yes Stature: Overweight Posture: Slumped Eye Contact: Avoidant Behavior/Activity: Accelerated - Interaction Observations Attitude Towards Examiner: Uncooperative, Defensive, Evasive, Mistrustful Stated Mood: Expansive Affect: Restricted Speech Pattern/Tone: Inappropriate, Garbled, Rambling, Excessive Thought Process: Loose Associations, Tangential, Flight of Ideas Perception: WNL Thought Content: Preoccupation/Ruminations, Paranoid, Grandiose Thought Process: Lethality: Paranoid Ideation Hallucination Type: Auditory Delusion Type: Thought Broadcasting, Persecution - Cognitive Function Orientation: A&O x 4 Level of Consciousness: Awake - Medication Compliance Cooperative with Inpatient Medication Regimen: Yes - Group Participation Participates in Group Activities: No Assessment - Assessment Merits Inpatient Hospitalization: For Immediate Safety Clinical Impression: 39 year old Lithuanian male with history of schizoaffective disorder and multiple hospital admission came to the hospital by police with paranoid delusions and after a incident of threatening his father and was admitted to the BSU at [facility]. Plan - Plan Treatment Plan: Name: GARY WARD Birthdate: 1980 [id number] Plan # Q15 minute observation. # Patient has chronic and persistent mental illness he failed to follow AOT and community assertive treatment services and would benefit from longer term care at a state facility. # The patient requires psychiatric inpatient admission at this time to assure safety, receive treatment and work toward stabilization. # EKG ordered for risk of QT prolongation of antipsychotic medication. # Collaboration with Molder Floor Sandy Ruiz # Consult placed with Dr. Duque from GI for elevated liver enzymes # Continue lithium 150mg BID for mood # Invega 9mg po daily for psychosis tolerated without adverse effects. # Received Invega 234mg long acting injection today on 10/09/19 without complications and 156mg next due on Sunday10/13/19 Continued Medication Management: Continue Outpt Medication Medications: Current Medications Acetaminophen (Tylenol Tab*) 650 mg PO Q4H PRN PRN Reason: for pain; or Temp >101 F Last Admin: 10/09/19 05:20 Dose: 650 mg Al Hydrox/Mg Hydrox/Simethicone (Maalox Plus*) 30 ml PO Q4H PRN PRN Reason: INDIGESTION Albuterol (Ventolin Hfa Inhaler*) 2 puff INH Q4H PRN PRN Reason: SOB/WHEEZING Aspirin (Aspirin Ec Tab*) 81 mg PO DAILY [facility] Last Admin: 10/08/19 09:04 Dose: 81 mg Benztropine Mesylate (Cogentin Tab*) 2 mg PO ONCE PRN PRN Reason: .RESTLESSNESS Last Admin: 10/07/19 18:24 Dose: 2 mg Cetirizine HCl (Zyrtec*) 10 mg PO DAILY [facility] Last Admin: 10/08/19 09:04 Dose: 10 mg [place] Carbonate (Ixl Carbonate Cap) 150 mg PO BID [facility] Last Admin: 10/08/19 20:57 Dose: 150 mg Lorazepam (Ativan Tab(*)) 1 mg PO ONCE PRN PRN Reason: EXTREME RESTLESSNESS Mometasone Furoate/Formoterol Fumar (Dulera 100/5 Mdi*) 2 puff INH BID [facility] Last Admin: 10/08/19 20:58 Dose: 2 puff Multivitamins/Minerals (Theragran/Minerals Tab*) 1 tab PO DAILY [facility] Last Admin: 10/08/19 09:04 Dose: 1 tab Olanzapine (Zyprexa * Tab Odt) 10 mg PO Q6H PRN PRN Reason: AGITATION Paliperidone (Invega Er Tab*) 9 mg PO DAILY [facility] Last Admin: 10/08/19 09:07 Dose: 9 mg Paliperidone Palmitate (Invega Sustenna*) 234 mg IM ONCE ONE Stop: 10/09/19 12:01 Pantoprazole Sodium (Protonix Tab*) 40 mg PO DAILY [facility] Last Admin: 10/08/19 09:04 Dose: 40 mg - Discharge Plan Discharge Plan: Inpatient Hospitalization
[2019-10-09] MEDS: Pantoprazole TAB * 40 MG TAB PO SCH (09:21)
[2019-10-09] MEDS: Multivitamins/Minerals TAB PO SCH (09:21)
[2019-10-09] MEDS: Lithium Carbonate CAP 150 MG ** CAPSULE PO SCH ×2 (09:21→21:08)
[2019-10-09] MEDS: Cetirizine* 10 MG TAB PO SCH (09:21)
[2019-10-09] MEDS: Paliperidone ER TAB* 9 MG TAB.ER PO SCH (09:21)
[2019-10-09] MEDS: Aspirin EC TAB* 81 MG TAB.EC PO SCH (09:21)
[2019-10-09] MEDS: Mometasone/Formoter 100/5 MDI INH SCH ×2 (09:22→21:08)
[2019-10-09] MEDS ORDERED: Paliperidone SUSTENNA* 234 MG/1.5 ML IM ONE (12:00)
--- NOTE | 2019-10-09 16:16 | PN ---
BSU: Group Therapy Note - Service Type Service Type: [id number] Group Psychotherapy - Medication Education group: Patient hovered outside of group room for majority of group. He sat down briefly then exited without engagement.
[2019-10-10] MEDS: Aspirin EC TAB* 81 MG TAB.EC PO SCH (08:27)
[2019-10-10] MEDS: Paliperidone ER TAB* 9 MG TAB.ER PO SCH (08:27)
[2019-10-10] MEDS: Pantoprazole TAB * 40 MG TAB PO SCH (08:28)
[2019-10-10] MEDS: Lithium Carbonate CAP 150 MG ** CAPSULE PO SCH ×2 (08:28→20:15)
[2019-10-10] MEDS: Multivitamins/Minerals TAB PO SCH (08:28)
[2019-10-10] MEDS: Cetirizine* 10 MG TAB PO SCH (08:28)
[2019-10-10] MEDS: Mometasone/Formoter 100/5 MDI INH SCH ×2 (08:29→20:16)
[2019-10-10] MEDS: Gabapentin CAP(*) 100 MG PO SCH ×2 (08:29→20:14)
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
--- NOTE | 2019-10-10 19:50 | CONS ---
GASTROENTEROLOGY CONSULT: DATE: 10/10/19 CONSULTING PHYSICIAN: Dr. Ross Alex, Dr. Jonathan Mccabe. REASON FOR CONSULTATION: Elevated liver function test. HISTORY: This 39-year-old man admitted to Psychiatry involuntarily 4 days ago because of violent outbursts, was found on 10/07/19 to have an ALT of 212, AST 75 , bilirubin 0.3 and a normal CBC. It appears he had not been taking his psychiatric meds before admission for an undetermined period of time. His last known medication was Aristada IM (aripiprazole) at discharge January 2019 Since admission, he has been placed on psychiatric meds first IM Invega and now taking p.o. Invega (paliperidone), Zyprexa, Ativan, Neurontin and lithium. His home medications prior to admission did not include any psychoactive medications , but did have pantoprazole 20 mg (first listed in outpatient EMR in 2018) which is now being given at 40. He is also taking aspirin 81 mg and that has been continued. He has been known to have elevated LFTs recently, initially mildly elevated in January 2017 and rising to 191 by August 2018 (no values in 2018), then over several determinations lowering to a still slightly elevated level of 76 (at the time of the last admission) and then going up substantially into the 300s and as high as 489 on 08/18/19. During that time, he had no obvious direct symptoms from the liver with no fever , no rash, arthralgias. 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 He had refused consideration of a liver biopsy. He had refused to have anyone come with him to appointment to help corroborate his habits or med intake. As an outpatient it did not appear that the liver function tests were related directly to his psychiatric condition or were contributing to any physical impairments at this moment. It was time to await further developments and hopefully someone involved in his care (parents etc) to permit a full evaluation, which might include a liver biopsy. He did have a liver ultrasound in August 2018 that was unremarkable. He did have mild elevations in liver functions March and April of 2013 - highest ALT 175 . He was taking from the [facility] Dr Demetri Forrest, possibly Zoloft and PRN Tylenol. At this time, it is not possible via EMR to isolate if he was on other medications from other MDs at those times. He has no history of alcohol abuse and 6 Etoh levels in the hospital chart all zero. There were then 6 normal LFTs for 24 months December 2014 to January 2917 PAST MEDICAL HISTORY: No history of surgery. He is being treated for GERD starting Protonix 06/27/19. He has not had any medical admissions that have been to [facility]. He sees Dr. Jonathan Mccabe as an outpatient. [facility] There, he is treated for asthma or respiratory allergies. SOCIAL HISTORY: He maintains that he is mounting a lawsuit against various entities. Please see the psychiatric history - he has had numerous [place] [address] admissions since 2009. Collateral information informs me that his father is a language professor at a college in [place]. Same source informs me that his mother has chronic medical problems and psychiatric disease. He does reside with his parents. REVIEW OF SYSTEMS: No history of syncope, seizures, CVA, chest pain, palpitations, proven viral hepatitis, hemoptysis, hematemesis. He had +PPD in 2009. PHYSICAL EXAM: Today, he does not wish to be examined initially. In the unit, his vital signs are normal. Blood pressure 147/80. He did allow inspection of the skin. He is walking unassisted saying his left leg has had a cramp since sleeping that evening. He does not have any swelling. There is no icterus. HEENT exam is otherwise unremarkable. Breath sounds are intact and normal. The abdomen is symmetric, mildly obese and nontender to a standing exam. LABS: CBC normal. ALT 212, AST 75, bilirubin is 0.3. Liver workup studies within the last year include ferritin 76, iron saturation 15%, iron 61, TIBC 403 , ammonia 56, albumin 4.8, ceruloplasmin 23.9 (normal range 19 to 31), copper 0.92 (ranged 0.75 to 1.45). Alcohol on admission none consistent with 5 prior values dating back to March 2013 and multiple serologies negative, although antinuclear antibodies twice in last month had been weekly positive at 1.2. Hepatitis B surface antigen negative and hepatitis C antibody negative. IMPRESSION: This 39-year-old man has an ALT predominant transaminase elevation (above 100 for 14 months) with no signs of cholestasis in the LFTs. He has no symptoms, normal synthetic function and liver US Aug 2018 (only liver imaging study) was normal apart from fatty liver. There were elevated ALTs in Apr 2013 of unclear relationship to the current situation. Major possibilities are autoimmune disease and medications or toxic exposure. Autoimmune disease is not supported by the unimpressive JAZMÍN and negative serologies and the two year gap with normal ALT 2014 to 2016. Medications would seem to be a definite possibility though the psychiatric meds have varied greatly and have been not complied with for long periods during which ALT has gone up to 489. This seems to steer away from them being the cause . This includes the current admission where he has been off meds ( inappropriately) and yet the ALT is 212. Pantoprazole can rarely caues hepatotoxicity and could be stopped and ALT followed. Acetaminophen toxicity would not usually be so severe and persisting a week after admission and close observation eliminates that as it would other toxins. He has had intervals where common meds such as Haldol and Ativan and others have been given without any apparent elevation in LFTs. Nonetheless, there is much further checking that could be done, vis-a-vis, the medications he has been on and the time course of his elevations. Uncertainty about his meds and lack of corroborating information from family makes this much more complex and serial levels during his stay will help. For the moment, there is no immediate danger. If he does not improve off pantoprazole and will not permit a liver biopsy, ultimately trials of medications such as Entocort, prednisone or even azathioprine could be considered. [id number]/[facility] #: [id number] [facility]
[2019-10-11] MEDS: Mometasone/Formoter 100/5 MDI INH SCH ×2 (08:19→20:42)
[2019-10-11] MEDS: Aspirin EC TAB* 81 MG TAB.EC PO SCH (08:20)
[2019-10-11] MEDS: Gabapentin CAP(*) 100 MG PO SCH ×2 (08:20→20:40)
[2019-10-11] MEDS: Pantoprazole TAB * 40 MG TAB PO SCH (08:21)
[2019-10-11] MEDS: Paliperidone ER TAB* 6 MG TAB.ER PO SCH (08:22)
[2019-10-11] MEDS: Multivitamins/Minerals TAB PO SCH (08:22)
[2019-10-11] MEDS: Cetirizine* 10 MG TAB PO SCH (08:22)
[2019-10-11] MEDS: Lithium Carbonate CAP 150 MG ** CAPSULE PO SCH ×2 (08:23→20:41)
[2019-10-11] MEDS: Acetaminophen TAB* 325 MG PO PRN (19:47)
[2019-10-12] MEDS: Acetaminophen TAB* 325 MG PO PRN
[2019-10-12] MEDS: Gabapentin CAP(*) 100 MG PO SCH ×2 (09:19→20:37)
[2019-10-12] MEDS: Mometasone/Formoter 100/5 MDI INH SCH ×2 (09:19→20:38)
[2019-10-12] MEDS: Aspirin EC TAB* 81 MG TAB.EC PO SCH (09:19)
[2019-10-12] MEDS: Paliperidone ER TAB* 6 MG TAB.ER PO SCH (09:20)
[2019-10-12] MEDS: Pantoprazole TAB * 40 MG TAB PO SCH (09:20)
[2019-10-12] MEDS: Multivitamins/Minerals TAB PO SCH (09:20)
[2019-10-12] MEDS: Cetirizine* 10 MG TAB PO SCH (09:20)
[2019-10-12] MEDS: Lithium Carbonate CAP 150 MG ** CAPSULE PO SCH ×2 (09:20→20:38)
[2019-10-13 08:19] LABS: INR 1.02 (0.82-1.09)
[2019-10-13 08:22] LABS: Albumin 4.8 g/dL (3.2-5.2); Albumin/Globulin Ratio 1.8 (1-3); Globulin 2.7 g/dL (2-4); Indirect Bilirubin 0.3 mg/dL (0.3-1.0); Total Bilirubin 0.4 mg/dL (0.2-1.0); Total Protein 7.5 g/dL (6.4-8.9)
[2019-10-13] MEDS: Gabapentin CAP(*) 100 MG PO SCH ×2 (08:57→20:49)
[2019-10-13] MEDS: Lithium Carbonate CAP 150 MG ** CAPSULE PO SCH (08:57)
[2019-10-13] MEDS: Multivitamins/Minerals TAB PO SCH (08:57)
[2019-10-13] MEDS: Aspirin EC TAB* 81 MG TAB.EC PO SCH (08:57)
[2019-10-13] MEDS: Paliperidone ER TAB* 6 MG TAB.ER PO SCH (08:57)
[2019-10-13] MEDS: Pantoprazole TAB * 40 MG TAB PO SCH (08:57)
[2019-10-13] MEDS: Cetirizine* 10 MG TAB PO SCH (08:57)
[2019-10-13] MEDS: Mometasone/Formoter 100/5 MDI INH SCH ×2 (08:58→20:53)
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
[2019-10-13] MEDS ORDERED: Ibuprofen TAB* 400 MG PO PRN (19:52)
[2019-10-13] MEDS: Lithium Carbonate TAB* 300 MG PO SCH (20:48)
[2019-10-13] MEDS: Methocarbamol TAB* 500 MG PO PRN (20:49)
[2019-10-14] MEDS: Mometasone/Formoter 100/5 MDI INH SCH ×2 (08:19→20:56)
[2019-10-14] MEDS: Aspirin EC TAB* 81 MG TAB.EC PO SCH (08:19)
[2019-10-14] MEDS: Cetirizine* 10 MG TAB PO SCH (08:20)
[2019-10-14] MEDS: Lithium Carbonate TAB* 300 MG PO SCH ×2 (08:20→20:55)
[2019-10-14] MEDS: Multivitamins/Minerals TAB PO SCH (08:20)
[2019-10-14] MEDS: Gabapentin CAP(*) 100 MG PO SCH (08:20)
[2019-10-14] MEDS: Pantoprazole TAB * 40 MG TAB PO SCH (08:20)
[2019-10-14] MEDS ORDERED: Paliperidone SUSTENNA* 156 MG/1 ML IM ONE (09:00)
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
[2019-10-15] MEDS: Aspirin EC TAB* 81 MG TAB.EC PO SCH (08:22)
[2019-10-15] MEDS: Mometasone/Formoter 100/5 MDI INH SCH ×2 (08:23→20:13)
[2019-10-15] MEDS: Pantoprazole TAB * 40 MG TAB PO SCH (08:23)
[2019-10-15] MEDS: Multivitamins/Minerals TAB PO SCH (08:23)
[2019-10-15] MEDS: Cetirizine* 10 MG TAB PO SCH (08:23)
[2019-10-15] MEDS: Lithium Carbonate TAB* 300 MG PO SCH ×2 (08:23→20:07)
[2019-10-15] MEDS: Methocarbamol TAB* 500 MG PO PRN (20:11)
[2019-10-16] MEDS: Cetirizine* 10 MG TAB PO SCH (08:08)
[2019-10-16] MEDS: Aspirin EC TAB* 81 MG TAB.EC PO SCH (08:08)
[2019-10-16] MEDS: Lithium Carbonate TAB* 300 MG PO SCH ×2 (08:09→20:13)
[2019-10-16] MEDS: Pantoprazole TAB * 40 MG TAB PO SCH (08:09)
[2019-10-16] MEDS: Multivitamins/Minerals TAB PO SCH (08:09)
[2019-10-16] MEDS: Mometasone/Formoter 100/5 MDI INH SCH ×2 (08:10→20:14)
--- NOTE | 2019-10-16 11:42 | PN ---
Subjective - Subjective Date of Service: 10/16/19 Service Type: 81974 Hosp care 35 min high complexity Subjective: Nursing Report: Patient was visible on unit, no behavioral incidents. He is attending some group activities. CC: "I still have not heard about my case" He was seen and evaluated today. Patient stated that he has not heard a response from the [place] senator regarding his case and asks why he has to go to [place]? He reported having adequate appetite and sleep. Per nursing no behavioral issues or overnight events reported. Patient reported that he is tolerating medications without side effects. Objective - General Observations Appearance: Disheveled Appears Stated Age: Yes Stature: WNL Posture: Slumped Eye Contact: Average Behavior/Activity: Peculiar - Interaction Observations Attitude Towards Examiner: Mistrustful Stated Mood: Irritable Affect: Restricted Speech Pattern/Tone: Clear Thought Process: Loose Associations Perception: WNL Thought Content: Paranoid Thought Process: Lethality: Paranoid Ideation Hallucination Type: Denies Delusion Type: Control - Cognitive Function Orientation: A&O x 4 Level of Consciousness: Awake Insight: Difficulty Acknowledging Presence of Psyciatric Problems Judgment Within Normal Limits: No - Medication Compliance Cooperative with Inpatient Medication Regimen: Yes - Group Participation Participates in Group Activities: Yes Assessment - Assessment Merits Inpatient Hospitalization: For Immediate Safety Clinical Impression: 39 year old Estonian male with history of schizoaffective disorder and multiple hospital admission came to the hospital by police with paranoid delusions and after a incident of threatening his father and was admitted to the B[facility] at [facility]. Plan - Plan Treatment Plan: Name: GARY WARD Birthdate: 1980 [id number] Plan # Q30 minute observation, staff pass with computer # The patient requires psychiatric inpatient admission at this time to assure safety, receive treatment and work toward stabilization. # Pain management recommendations appreciated, will continue to monitor lithium levels given Ibuprofen can increase levels, currently level is low (0.25 ) # Patient has chronic and persistent mental illness he failed to maintain assertive community treatment services and would benefit from longer term care at a state facility. # EKG ordered QTc 405 # Collaboration with Windows Application Administrator Sandy Ruiz # GI service continuing to follow the patient # To monitor possible changes from lithium and other treatments- Reordered CMP that includes AST/ ALT # Patient is unable to engage in composing a rational safety plan that does not include multiple delusions of pursuing multiple lawsuits with [place] senator. # Continue lithium 300mg BID for mood # Received Invega 234mg long acting injection on 10/09/19 and 156mg on 10/13/19 without complications. 156mg Next due 11/06/19 # State referral eligible on 10/21/2019 Sodium 134 mmol/L (135-145) L 10/07/19 11:43 Potassium 3.7 mmol/L (3.5-5.0) 10/07/19 11:43 BUN 23 mg/dL (6-24) 10/07/19 11:43 Creatinine 1.06 mg/dL (0.67-1.17) 10/07/19 11:43 Hemoglobin A1c 5.6 % (4.0-5.6) 10/09/19 06:32 Calcium 9.3 mg/dL (8.6-10.3) 10/07/19 11:43 AST 60 U/L (13-39) H 10/13/19 07:50 ALT 184 U/L (7-52) H 10/13/19 07:50 Triglycerides 145 mg/dL 10/09/19 06:32 Cholesterol 213 mg/dL 10/09/19 06:32 LDL Cholesterol 138 mg/dL 10/09/19 06:32 Laboratory Results - last 24 hr 10/14/19 06:29 [place] 0.25 L Continued Medication Management: Continue Outpt Medication Medications: Current Medications Al Hydrox/Mg Hydrox/Simethicone (Maalox Plus*) 30 ml PO Q4H PRN PRN Reason: INDIGESTION Albuterol (Ventolin Hfa Inhaler*) 2 puff INH Q4H PRN PRN Reason: SOB/WHEEZING Aspirin (Aspirin Ec Tab*) 81 mg PO DAILY [facility] Last Admin: 10/16/19 08:08 Dose: 81 mg Benztropine Mesylate (Cogentin Tab*) 2 mg PO ONCE PRN PRN Reason: .RESTLESSNESS Last Admin: 10/07/19 18:24 Dose: 2 mg Cetirizine HCl (Zyrtec*) 10 mg PO DAILY [facility] Last Admin: 10/16/19 08:08 Dose: 10 mg Ibuprofen (Motrin Tab*) 400 mg PO Q6H PRN PRN Reason: PAIN - MODERATE Last Admin: 10/14/19 20:55 Dose: 400 mg [place] Carbonate ([place] Carbonate Tab*) 300 mg PO BID [facility] Last Admin: 10/16/19 08:09 Dose: 300 mg Lorazepam (Ativan Tab(*)) 1 mg PO ONCE PRN PRN Reason: EXTREME RESTLESSNESS Methocarbamol (Robaxin Tab*) 750 mg PO TID PRN PRN Reason: LEG CRAMPS Last Admin: 10/15/19 20:11 Dose: 750 mg Mometasone Furoate/Formoterol Fumar (Dulera 100/5 Mdi*) 2 puff INH BID [facility] Last Admin: 10/16/19 08:10 Dose: 2 puff Multivitamins/Minerals (Theragran/Minerals Tab*) 1 tab PO DAILY [facility] Last Admin: 10/16/19 08:09 Dose: 1 tab Olanzapine (Zyprexa * Tab Odt) 10 mg PO Q6H PRN PRN Reason: AGITATION Pantoprazole Sodium (Protonix Tab*) 40 mg PO DAILY [facility] Last Admin: 10/16/19 08:09 Dose: 40 mg - Discharge Plan Discharge Plan: Consider Longer Term Tx
[2019-10-17] MEDS: Cetirizine* 10 MG TAB PO SCH (09:08)
[2019-10-17] MEDS: Mometasone/Formoter 100/5 MDI INH SCH ×2 (09:08→20:23)
[2019-10-17] MEDS: Aspirin EC TAB* 81 MG TAB.EC PO SCH (09:08)
[2019-10-17] MEDS: Pantoprazole TAB * 40 MG TAB PO SCH (09:08)
[2019-10-17] MEDS: Multivitamins/Minerals TAB PO SCH (09:08)
[2019-10-17] MEDS: Lithium Carbonate TAB* 300 MG PO SCH ×2 (09:08→20:23)
--- NOTE | 2019-10-17 14:38 | PN ---
Subjective - Subjective Date of Service: 10/17/19 Service Type: 25463 Hosp care 35 min high complexity Subjective: Nursing Report: Patient was visible on unit, no behavioral incidents. Slept overnight. He is attending group activities. CC: "I am fine" Patient was seen and evaluated today. 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 He reported having adequate appetite and sleep. The patient reports attending day groups. Per nursing no behavioral issues or overnight events reported. Patient reported that he is tolerating medications without side effects. Objective - General Observations Appearance: Disheveled Appears Stated Age: Yes Stature: WNL Posture: Slumped Eye Contact: Average Behavior/Activity: Peculiar - Interaction Observations Attitude Towards Examiner: Mistrustful Stated Mood: Irritable Affect: Restricted Speech Pattern/Tone: Garbled Thought Process: Loose Associations Perception: WNL Thought Content: Paranoid Thought Process: Lethality: Paranoid Ideation Hallucination Type: Denies Delusion Type: Denies - Cognitive Function Orientation: A&O x 4 Level of Consciousness: Awake Insight: Difficulty Acknowledging Presence of Psyciatric Problems - Medication Compliance Cooperative with Inpatient Medication Regimen: Yes - Group Participation Participates in Group Activities: Partial Assessment - Assessment Merits Inpatient Hospitalization: For Immediate Safety Clinical Impression: 39 year old Occitan male with history of schizoaffective disorder and multiple hospital admission came to the hospital by police with paranoid delusions and after a incident of threatening his father and was admitted to the [facility] at [facility]. Plan - Plan Treatment Plan: Name: GARY WARD Birthdate: 1980 [id number] Plan # Q30 minute observation, staff pass with computer # The patient requires psychiatric inpatient admission at this time to assure safety, receive treatment and work toward stabilization. # Pain management recommendations appreciated, will continue to monitor lithium levels given Ibuprofen can increase levels, currently level is low (0.25 ) # Patient has chronic and persistent mental illness he failed to maintain assertive community treatment services and would benefit from longer term care at a state facility. # EKG ordered QTc 405 # Collaboration with County Tax Assessor Sandy Ruiz # GI service continuing to follow the patient # To monitor possible changes from lithium and other treatments- Reordered CMP that includes AST/ ALT # Patient is unable to engage in composing a rational safety plan that does not include multiple delusions of pursuing multiple lawsuits with [place] representatives. # Continue lithium 300mg BID for mood # Patient provided clearance for [place] # Received Invega 234mg long acting injection on 10/09/19 and 156mg on 10/13/19 without complications. 156mg Next due 11/06/19 # State referral Sodium 134 mmol/L (135-145) L 10/07/19 11:43 Potassium 3.7 mmol/L (3.5-5.0) 10/07/19 11:43 BUN 23 mg/dL (6-24) 10/07/19 11:43 Creatinine 1.06 mg/dL (0.67-1.17) 10/07/19 11:43 Hemoglobin A1c 5.6 % (4.0-5.6) 10/09/19 06:32 Calcium 9.3 mg/dL (8.6-10.3) 10/07/19 11:43 AST 60 U/L (13-39) H 10/13/19 07:50 ALT 184 U/L (7-52) H 10/13/19 07:50 Triglycerides 145 mg/dL 10/09/19 06:32 Cholesterol 213 mg/dL 10/09/19 06:32 LDL Cholesterol 138 mg/dL 10/09/19 06:32 Laboratory Results - last 24 hr 10/14/19 06:29 [place] 0.25 L Continued Medication Management: Continue Outpt Medication Medications: Current Medications Al Hydrox/Mg Hydrox/Simethicone (Maalox Plus*) 30 ml PO Q4H PRN PRN Reason: INDIGESTION Albuterol (Ventolin Hfa Inhaler*) 2 puff INH Q4H PRN PRN Reason: SOB/WHEEZING Aspirin (Aspirin Ec Tab*) 81 mg PO DAILY [facility] Last Admin: 10/17/19 09:08 Dose: 81 mg Benztropine Mesylate (Cogentin Tab*) 2 mg PO ONCE PRN PRN Reason: .RESTLESSNESS Last Admin: 10/07/19 18:24 Dose: 2 mg Cetirizine HCl (Zyrtec*) 10 mg PO DAILY [facility] Last Admin: 10/17/19 09:08 Dose: 10 mg Ibuprofen (Motrin Tab*) 400 mg PO Q6H PRN PRN Reason: PAIN - MODERATE Last Admin: 10/14/19 20:55 Dose: 400 mg [place] Carbonate ([place] Carbonate Tab*) 300 mg PO BID [facility] Last Admin: 10/17/19 09:08 Dose: 300 mg Lorazepam (Ativan Tab(*)) 1 mg PO ONCE PRN PRN Reason: EXTREME RESTLESSNESS Methocarbamol (Robaxin Tab*) 750 mg PO TID PRN PRN Reason: LEG CRAMPS Last Admin: 10/15/19 20:11 Dose: 750 mg Mometasone Furoate/Formoterol Fumar (Dulera 100/5 Mdi*) 2 puff INH BID [facility] Last Admin: 10/17/19 09:08 Dose: 2 puff Multivitamins/Minerals (Theragran/Minerals Tab*) 1 tab PO DAILY [facility] Last Admin: 10/17/19 09:08 Dose: 1 tab Olanzapine (Zyprexa * Tab Odt) 10 mg PO Q6H PRN PRN Reason: AGITATION Pantoprazole Sodium (Protonix Tab*) 40 mg PO DAILY [facility] Last Admin: 10/17/19 09:08 Dose: 40 mg - Discharge Plan Discharge Plan: Consider Longer Term Tx
[2019-10-17 19:43] LABS: Hematocrit 44 % (42-52); Mean Corpuscular HGB Conc 35 g/dL (31-36); Mean Corpuscular Hemoglobin 32 pg (27-31); Mean Corpuscular Volume 94 fL (80-94); Mean Platelet Volume 7.7 fL (7.4-10.4); Platelet Count 301 10^3/uL (150-450); Red Blood Count 4.64 10^6 /uL (4.18-5.48); Red Cell Distribution Width 13 % (10-15); White Blood Count 9.6 10^3/uL (3.5-10.8)
[2019-10-17 19:59] LABS: INR 0.99 (0.82-1.09)
[2019-10-17 20:00] LABS: Albumin 4.5 g/dL (3.2-5.2); Albumin/Globulin Ratio 1.6 (1-3); Globulin 2.8 g/dL (2-4); Indirect Bilirubin 0.2 mg/dL (0.3-1.0); Total Bilirubin 0.3 mg/dL (0.2-1.0); Total Protein 7.3 g/dL (6.4-8.9)
[2019-10-18] MEDS: Multivitamins/Minerals TAB PO SCH (08:25)
[2019-10-18] MEDS: Pantoprazole TAB * 40 MG TAB PO SCH (08:25)
[2019-10-18] MEDS: Cetirizine* 10 MG TAB PO SCH (08:25)
[2019-10-18] MEDS: Aspirin EC TAB* 81 MG TAB.EC PO SCH (08:25)
[2019-10-18] MEDS: Lithium Carbonate TAB* 300 MG PO SCH ×2 (08:26→20:54)
[2019-10-18] MEDS: Mometasone/Formoter 100/5 MDI INH SCH ×2 (08:27→20:54)
[2019-10-18 08:29] LABS: Albumin 4.8 g/dL (3.2-5.2); Albumin/Globulin Ratio 1.7 (1-3); BUN/Creatinine Ratio 16.8 (8-20); Calcium 9.5 mg/dL (8.6-10.3); EGFR Non-African American 81.8 (>60); Globulin 2.8 g/dL (2-4); Potassium 4.2 mmol/L (3.5-5.0); Total Bilirubin 0.4 mg/dL (0.2-1.0); Total Protein 7.6 g/dL (6.4-8.9)
[2019-10-19] MEDS: Multivitamins/Minerals TAB PO SCH (08:06)
[2019-10-19] MEDS: Aspirin EC TAB* 81 MG TAB.EC PO SCH (08:06)
[2019-10-19] MEDS: Mometasone/Formoter 100/5 MDI INH SCH ×2 (08:07→20:48)
[2019-10-19] MEDS: Pantoprazole TAB * 40 MG TAB PO SCH (08:07)
[2019-10-19] MEDS: Cetirizine* 10 MG TAB PO SCH (08:07)
[2019-10-19] MEDS: Lithium Carbonate TAB* 300 MG PO SCH ×2 (08:07→20:49)
[2019-10-20] MEDS: Aspirin EC TAB* 81 MG TAB.EC PO SCH (08:17)
[2019-10-20] MEDS: Multivitamins/Minerals TAB PO SCH (08:17)
[2019-10-20] MEDS: Cetirizine* 10 MG TAB PO SCH (08:17)
[2019-10-20] MEDS: Lithium Carbonate TAB* 300 MG PO SCH ×2 (08:18→21:55)
[2019-10-20] MEDS: Mometasone/Formoter 100/5 MDI INH SCH ×2 (08:18→21:55)
[2019-10-20] MEDS: Pantoprazole TAB * 40 MG TAB PO SCH (08:18)
--- NOTE | 2019-10-20 10:28 | PN ---
Subjective - Subjective Date of Service: 10/20/19 Service Type: 60189 Hosp care 35 min high complexity Subjective: Nursing Report: Patient was visible on unit, no behavioral incidents. Slept overnight. He is attending group activities. CC: "I am fine" Patient was seen and evaluated today. He reported having adequate appetite and sleep around 6 hours. The patient reports attending day groups. Per nursing no behavioral issues or overnight events reported. Patient reported that he is tolerating medications without side effects. Objective - General Observations Appearance: Disheveled Appears Stated Age: Yes Stature: WNL Posture: Slumped Eye Contact: Average Behavior/Activity: Stereotyped - Interaction Observations Attitude Towards Examiner: Cooperative Stated Mood: Dysphoric Affect: Restricted Speech Pattern/Tone: Appropriate Thought Process: Coherent Perception: WNL Thought Content: Paranoid Thought Process: Lethality: Paranoid Ideation Hallucination Type: Denies Delusion Type: Denies - Cognitive Function Orientation: A&O x 4 Level of Consciousness: Awake - Medication Compliance Cooperative with Inpatient Medication Regimen: Yes - Group Participation Participates in Group Activities: Yes Assessment - Assessment Merits Inpatient Hospitalization: For Immediate Safety Clinical Impression: 39 year old Maori male with history of schizoaffective disorder and multiple hospital admission came to the hospital by police with paranoid delusions and after a incident of threatening his father and was admitted to the BSU at [facility]. Plan - Plan Treatment Plan: Name: GARY WARD Birthdate: 1980 [id number] Plan # Q30 minute observation, staff pass with computer # The patient requires psychiatric inpatient admission at this time to assure safety, receive treatment and work toward stabilization. # Pain management recommendations appreciated, will continue to monitor lithium levels given Ibuprofen can increase levels, currently level is low (0.25 ) # Patient has chronic and persistent mental illness he failed to maintain assertive community treatment services and would benefit from longer term care at a state facility. # EKG ordered QTc 405 # Collaboration with Sugar Grinder Sandy Ruiz # GI service continuing to follow the patient # To monitor possible changes from lithium and other treatments- Reordered CMP that includes AST/ ALT # Patient is unable to engage in composing a rational safety plan that does not include multiple delusions of pursuing multiple lawsuits with [place] representatives. # Continue lithium 300mg BID for mood # Patient provided clearance for [place] # Received Invega 234mg long acting injection on 2/27/20 and 156mg on 10/13/19 without complications. 156mg Next due 11/06/19 # State referral submitted Sodium 134 mmol/L (135-145) L 10/07/19 11:43 Potassium 3.7 mmol/L (3.5-5.0) 10/07/19 11:43 BUN 23 mg/dL (6-24) 10/07/19 11:43 Creatinine 1.06 mg/dL (0.67-1.17) 10/07/19 11:43 Hemoglobin A1c 5.6 % (4.0-5.6) 10/09/19 06:32 Calcium 9.3 mg/dL (8.6-10.3) 10/07/19 11:43 AST 60 U/L (13-39) H 10/13/19 07:50 ALT 184 U/L (7-52) H 10/13/19 07:50 Triglycerides 145 mg/dL 10/09/19 06:32 Cholesterol 213 mg/dL 10/09/19 06:32 LDL Cholesterol 138 mg/dL 10/09/19 06:32 Laboratory Results - last 24 hr 10/14/19 06:29 [place] 0.25 L Continued Medication Management: Continue Outpt Medication Medications: Current Medications Al Hydrox/Mg Hydrox/Simethicone (Maalox Plus*) 30 ml PO Q4H PRN PRN Reason: INDIGESTION Albuterol (Ventolin Hfa Inhaler*) 2 puff INH Q4H PRN PRN Reason: SOB/WHEEZING Aspirin (Aspirin Ec Tab*) 81 mg PO DAILY [facility] Last Admin: 10/20/19 08:17 Dose: 81 mg Benztropine Mesylate (Cogentin Tab*) 2 mg PO ONCE PRN PRN Reason: .RESTLESSNESS Last Admin: 10/07/19 18:24 Dose: 2 mg Cetirizine HCl (Zyrtec*) 10 mg PO DAILY [facility] Last Admin: 10/20/19 08:17 Dose: 10 mg Ibuprofen (Motrin Tab*) 400 mg PO Q6H PRN PRN Reason: PAIN - MODERATE Last Admin: 10/14/19 20:55 Dose: 400 mg [place] Carbonate ([place] Carbonate Tab*) 300 mg PO BID [facility] Last Admin: 10/20/19 08:18 Dose: 300 mg Lorazepam (Ativan Tab(*)) 1 mg PO ONCE PRN PRN Reason: EXTREME RESTLESSNESS Methocarbamol (Robaxin Tab*) 750 mg PO TID PRN PRN Reason: LEG CRAMPS Last Admin: 10/15/19 20:11 Dose: 750 mg Mometasone Furoate/Formoterol Fumar (Dulera 100/5 Mdi*) 2 puff INH BID [facility] Last Admin: 10/20/19 08:18 Dose: 2 puff Multivitamins/Minerals (Theragran/Minerals Tab*) 1 tab PO DAILY [facility] Last Admin: 10/20/19 08:17 Dose: 1 tab Olanzapine (Zyprexa * Tab Odt) 10 mg PO Q6H PRN PRN Reason: AGITATION - Discharge Plan Discharge Plan: Consider Longer Term Tx
[2019-10-21] MEDS: Multivitamins/Minerals TAB PO SCH (08:42)
[2019-10-21] MEDS: Lithium Carbonate TAB* 300 MG PO SCH ×2 (08:42→20:08)
[2019-10-21] MEDS: Aspirin EC TAB* 81 MG TAB.EC PO SCH (08:42)
[2019-10-21] MEDS: Cetirizine* 10 MG TAB PO SCH (08:42)
[2019-10-21] MEDS: Mometasone/Formoter 100/5 MDI INH SCH ×2 (08:43→20:08)
--- NOTE | 2019-10-21 09:45 | PN ---
Subjective - Subjective Date of Service: 10/21/19 Service Type: [id number] Hosp care 35 min high complexity Subjective: Nursing Report: Patient was visible on unit, no behavioral incidents. Slept overnight. He is attending group activities. CC: "Fine" Patient was seen and evaluated today. The patient reported he does not want to live anywhere but his home. He reported having adequate appetite and sleep. The patient reports attending day groups. Per nursing no behavioral issues or overnight events reported. Patient reported that he is tolerating medications without side effects. Objective - General Observations Appearance: Disheveled Appears Stated Age: Yes Stature: WNL Posture: Slumped Eye Contact: Average Behavior/Activity: Peculiar - Interaction Observations Attitude Towards Examiner: Mistrustful Stated Mood: Irritable Affect: Restricted Speech Pattern/Tone: Normal Volume Thought Process: Loose Associations Thought Content: Paranoid Thought Process: Lethality: Paranoid Ideation Hallucination Type: Denies Delusion Type: Denies - Cognitive Function Orientation: A&O x 4 Level of Consciousness: Awake - Medication Compliance Cooperative with Inpatient Medication Regimen: Yes - Group Participation Participates in Group Activities: Yes Assessment - Assessment Merits Inpatient Hospitalization: For Immediate Safety Clinical Impression: 39 year old [place] male with history of schizoaffective disorder and multiple hospital admission came to the hospital by police with paranoid delusions and after a incident of threatening his father and was admitted to the B[facility] at [facility]. Plan - Plan Treatment Plan: Name: GARY WARD Birthdate: 1980 [id number] Plan # Q30 minute observation, staff pass with computer # The patient requires psychiatric inpatient admission at this time to assure safety, receive treatment and work toward stabilization. # Pain management recommendations appreciated, will continue to monitor lithium levels given Ibuprofen can increase levels, currently level is low (0.25 ) # Patient has chronic and persistent mental illness he failed to maintain assertive community treatment services and would benefit from longer term care at a state facility. # EKG ordered QTc 405 # Collaboration with Floor Clerk Sandy Ruiz # GI service continuing to follow the patient # AST 68/ ALT 191 # Patient is unable to engage in composing a rational safety plan that does not include multiple delusions of pursuing multiple lawsuits with [place] representatives. # Continue lithium 300mg BID for mood # Received Invega 234mg long acting injection on 10/09/19 and 156mg on 10/13/19 without complications. 156mg Next due 11/06/19 # State referral submitted Laboratory Tests 10/07/19 10/07/19 10/07/19 11:43 11:43 12:30 WBC 9.0 RBC 4.58 Hgb 15.1 Hct 43 MCV 94 MCH 33 H MCHC 35 RDW 13 Plt Count 309 MPV 8.1 Neut % (Auto) 71.3 Lymph % (Auto) 22.7 [place] % (Auto) 4.6 Eos % (Auto) 0.8 Baso % (Auto) 0.6 Absolute Neuts (auto) 6.4 Absolute Lymphs (auto) 2.0 Absolute Monos (auto) 0.4 Absolute Eos (auto) 0.1 Absolute Basos (auto) 0.1 Absolute Nucleated RBC 0.0 Nucleated RBC % 0.1 INR (Anticoag Therapy) Sodium 134 L Potassium 3.7 Chloride 99 L Carbon Dioxide 27 Anion Gap 8 BUN 23 Creatinine 1.06 Est GFR ( Amer) 93.6 Est GFR (Non-Af Amer) 77.4 BUN/Creatinine Ratio 21.7 H Glucose 187 H Hemoglobin A1c Calcium 9.3 Total Bilirubin 0.30 Direct Bilirubin Indirect Bilirubin AST 75 H ALT 212 H Alkaline Phosphatase 86 Ammonia Total Protein 7.5 Albumin 4.8 Globulin 2.7 Albumin/Globulin Ratio 1.8 Triglycerides Cholesterol LDL Cholesterol HDL Cholesterol TSH 1.58 Urine Color Straw Urine Appearance Clear Urine pH 6.0 Ur Specific [place] 1.009 L Urine Protein Negative Urine Ketones Negative Urine Blood 1+ A Urine Nitrate Negative Urine Bilirubin Negative Urine Urobilinogen Negative Ur Leukocyte Esterase Negative Urine WBC (Auto) Trace(0-5/hpf) Urine RBC (Auto) Trace(0-2/hpf) Urine Bacteria Absent Urine Glucose Negative Salicylates < 2.50 Urine Opiates Screen Acetaminophen < 15 Ur Barbiturates Screen Ur Phencyclidine Scrn Ur Amphetamines Screen U Benzodiazepines Scrn [place] Urine Cocaine Screen U Cannabinoids Screen Serum Alcohol < 10 10/07/19 10/09/19 10/09/19 12:30 06:32 06:32 WBC RBC Hgb Hct MCV MCH MCHC RDW Plt Count MPV Neut % (Auto) Lymph % (Auto) [place] % (Auto) Eos % (Auto) Baso % (Auto) Absolute Neuts (auto) Absolute Lymphs (auto) Absolute Monos (auto) Absolute Eos (auto) Absolute Basos (auto) Absolute Nucleated RBC Nucleated RBC % INR (Anticoag Therapy) Sodium Potassium Chloride Carbon Dioxide Anion Gap BUN Creatinine Est GFR ( Amer) Est GFR (Non-Af Amer) BUN/Creatinine Ratio Glucose Hemoglobin A1c 5.6 Calcium Total Bilirubin Direct Bilirubin Indirect Bilirubin AST ALT Alkaline Phosphatase Ammonia Total Protein Albumin Globulin Albumin/Globulin Ratio Triglycerides 145 Cholesterol 213 LDL Cholesterol 138 HDL Cholesterol 45.7 TSH Urine Color Urine Appearance Urine pH Ur Specific [place] Urine Protein Urine Ketones Urine Blood Urine Nitrate Urine Bilirubin Urine Urobilinogen Ur Leukocyte Esterase Urine WBC (Auto) Urine RBC (Auto) Urine Bacteria Urine Glucose Salicylates Urine Opiates Screen None detected Acetaminophen Ur Barbiturates Screen None detected Ur Phencyclidine Scrn None detected Ur Amphetamines Screen None detected U Benzodiazepines Scrn None detected [place] Urine Cocaine Screen None detected U Cannabinoids Screen None detected Serum Alcohol 10/13/19 10/13/19 10/13/19 07:50 07:50 07:50 WBC RBC Hgb Hct MCV MCH MCHC RDW Plt Count MPV Neut % (Auto) Lymph % (Auto) [place] % (Auto) Eos % (Auto) Baso % (Auto) Absolute Neuts (auto) Absolute Lymphs (auto) Absolute Monos (auto) Absolute Eos (auto) Absolute Basos (auto) Absolute Nucleated RBC Nucleated RBC % INR (Anticoag Therapy) 1.02 Sodium Potassium Chloride Carbon Dioxide Anion Gap BUN Creatinine Est GFR ( Amer) Est GFR (Non-Af Amer) BUN/Creatinine Ratio Glucose Hemoglobin A1c Calcium Total Bilirubin 0.40 Direct Bilirubin 0.10 Indirect Bilirubin 0.3 AST 60 H ALT 184 H Alkaline Phosphatase 83 Ammonia 51 Total Protein 7.5 Albumin 4.8 Globulin 2.7 Albumin/Globulin Ratio 1.8 Triglycerides Cholesterol LDL Cholesterol HDL Cholesterol TSH Urine Color Urine Appearance Urine pH Ur Specific [place] Urine Protein Urine Ketones Urine Blood Urine Nitrate Urine Bilirubin Urine Urobilinogen Ur Leukocyte Esterase Urine WBC (Auto) Urine RBC (Auto) Urine Bacteria Urine Glucose Salicylates Urine Opiates Screen Acetaminophen Ur Barbiturates Screen Ur Phencyclidine Scrn Ur Amphetamines Screen U Benzodiazepines Scrn [place] Urine Cocaine Screen U Cannabinoids Screen Serum Alcohol 10/14/19 10/17/19 10/17/19 06:29 19:37 19:37 WBC 9.6 RBC 4.64 Hgb 15.0 Hct 44 MCV 94 MCH 32 H MCHC 35 RDW 13 Plt Count 301 MPV 7.7 Neut % (Auto) Lymph % (Auto) [place] % (Auto) Eos % (Auto) Baso % (Auto) Absolute Neuts (auto) Absolute Lymphs (auto) Absolute Monos (auto) Absolute Eos (auto) Absolute Basos (auto) Absolute Nucleated RBC Nucleated RBC % INR (Anticoag Therapy) Sodium Potassium Chloride Carbon Dioxide Anion Gap BUN Creatinine Est GFR ( Amer) Est GFR (Non-Af Amer) BUN/Creatinine Ratio Glucose Hemoglobin A1c Calcium Total Bilirubin 0.30 Direct Bilirubin 0.10 Indirect Bilirubin 0.2 L AST 50 H ALT 166 H Alkaline Phosphatase 82 Ammonia Total Protein 7.3 Albumin 4.5 Globulin 2.8 Albumin/Globulin Ratio 1.6 Triglycerides Cholesterol LDL Cholesterol HDL Cholesterol TSH Urine Color Urine Appearance Urine pH Ur Specific [place] Urine Protein Urine Ketones Urine Blood Urine Nitrate Urine Bilirubin Urine Urobilinogen Ur Leukocyte Esterase Urine WBC (Auto) Urine RBC (Auto) Urine Bacteria Urine Glucose Salicylates Urine Opiates Screen Acetaminophen Ur Barbiturates Screen Ur Phencyclidine Scrn Ur Amphetamines Screen U Benzodiazepines Scrn [place] 0.25 L Urine Cocaine Screen U Cannabinoids Screen Serum Alcohol 10/17/19 10/18/19 19:37 08:05 WBC RBC Hgb Hct MCV MCH MCHC RDW Plt Count MPV Neut % (Auto) Lymph % (Auto) [place] % (Auto) Eos % (Auto) Baso % (Auto) Absolute Neuts (auto) Absolute Lymphs (auto) Absolute Monos (auto) Absolute Eos (auto) Absolute Basos (auto) Absolute Nucleated RBC Nucleated RBC % INR (Anticoag Therapy) 0.99 Sodium 136 Potassium 4.2 Chloride 104 Carbon Dioxide 25 Anion Gap 7 BUN 17 Creatinine 1.01 Est GFR ( Amer) 99.0 Est GFR (Non-Af Amer) 81.8 BUN/Creatinine Ratio 16.8 Glucose 107 H Hemoglobin A1c Calcium 9.5 Total Bilirubin 0.40 Direct Bilirubin Indirect Bilirubin AST 68 H ALT 191 H Alkaline Phosphatase 83 Ammonia Total Protein 7.6 Albumin 4.8 Globulin 2.8 Albumin/Globulin Ratio 1.7 Triglycerides Cholesterol LDL Cholesterol HDL Cholesterol TSH Urine Color Urine Appearance Urine pH Ur Specific [place] Urine Protein Urine Ketones Urine Blood Urine Nitrate Urine Bilirubin Urine Urobilinogen Ur Leukocyte Esterase Urine WBC (Auto) Urine RBC (Auto) Urine Bacteria Urine Glucose Salicylates Urine Opiates Screen Acetaminophen Ur Barbiturates Screen Ur Phencyclidine Scrn Ur Amphetamines Screen U Benzodiazepines Scrn [place] Urine Cocaine Screen U Cannabinoids Screen Serum Alcohol Continued Medication Management: Continue Outpt Medication Medications: Current Medications Al Hydrox/Mg Hydrox/Simethicone (Maalox Plus*) 30 ml PO Q4H PRN PRN Reason: INDIGESTION Albuterol (Ventolin Hfa Inhaler*) 2 puff INH Q4H PRN PRN Reason: SOB/WHEEZING Aspirin (Aspirin Ec Tab*) 81 mg PO DAILY [facility] Last Admin: 10/21/19 08:42 Dose: 81 mg Benztropine Mesylate (Cogentin Tab*) 2 mg PO ONCE PRN PRN Reason: .RESTLESSNESS Last Admin: 10/07/19 18:24 Dose: 2 mg Cetirizine HCl (Zyrtec*) 10 mg PO DAILY [facility] Last Admin: 10/21/19 08:42 Dose: 10 mg Ibuprofen (Motrin Tab*) 400 mg PO Q6H PRN PRN Reason: PAIN - MODERATE Last Admin: 10/14/19 20:55 Dose: 400 mg [place] Carbonate ([place] Carbonate Tab*) 300 mg PO BID [facility] Last Admin: 10/21/19 08:42 Dose: 300 mg Lorazepam (Ativan Tab(*)) 1 mg PO ONCE PRN PRN Reason: EXTREME RESTLESSNESS Methocarbamol (Robaxin Tab*) 750 mg PO TID PRN PRN Reason: LEG CRAMPS Last Admin: 10/15/19 20:11 Dose: 750 mg Mometasone Furoate/Formoterol Fumar (Dulera 100/5 Mdi*) 2 puff INH BID [facility] Last Admin: 10/21/19 08:43 Dose: 2 puff Multivitamins/Minerals (Theragran/Minerals Tab*) 1 tab PO DAILY [facility] Last Admin: 10/21/19 08:42 Dose: 1 tab Olanzapine (Zyprexa * Tab Odt) 10 mg PO Q6H PRN PRN Reason: AGITATION - Discharge Plan Discharge Plan: Consider Longer Term Tx
[2019-10-22] MEDS: Lithium Carbonate TAB* 300 MG PO SCH ×2 (08:23→20:37)
[2019-10-22] MEDS: Aspirin EC TAB* 81 MG TAB.EC PO SCH (08:23)
[2019-10-22] MEDS: Multivitamins/Minerals TAB PO SCH (08:23)
[2019-10-22] MEDS: Cetirizine* 10 MG TAB PO SCH (08:24)
[2019-10-22] MEDS: Mometasone/Formoter 100/5 MDI INH SCH ×2 (08:25→20:37)
--- NOTE | 2019-10-22 11:23 | PN ---
Subjective - Subjective Date of Service: 10/22/19 Service Type: [id number] Hosp care 35 min high complexity Subjective: Nursing Report: Patient was visible on unit, no behavioral incidents. Slept overnight. He is attending group activities. CC: "Fine" Patient was seen and evaluated today. Patient asked how long he is going to be at [facility] and if he has to work with the ACT team is he doesnt go to the [facility]. He reported having adequate appetite and sleep. The patient reports attending day groups. Per nursing no behavioral issues or overnight events reported. Patient reported that he is tolerating medications without side effects. Objective - General Observations Appearance: Disheveled Appears Stated Age: Yes Stature: WNL Behavior/Activity: Peculiar - Interaction Observations Attitude Towards Examiner: Cooperative Stated Mood: Silly Affect: Restricted Speech Pattern/Tone: Normal Volume Thought Process: [place] Perception: WNL Thought Content: Paranoid Thought Process: Lethality: Paranoid Ideation Hallucination Type: Denies Delusion Type: Thought Insertion - Cognitive Function Orientation: A&O x 4 Level of Consciousness: Awake - Medication Compliance Cooperative with Inpatient Medication Regimen: Yes - Group Participation Participates in Group Activities: Yes Assessment - Assessment Merits Inpatient Hospitalization: For Immediate Safety Clinical Impression: 39 year old Turkish male with history of schizoaffective disorder and multiple hospital admission came to the hospital by police with paranoid delusions and after a incident of threatening his father and was admitted to the B[facility] at [facility]. Plan - Plan Treatment Plan: Name: GARY WARD Birthdate: 1980 [id number] Plan # Q30 minute observation, staff pass with computer # The patient requires psychiatric inpatient admission at this time to assure safety, receive treatment and work toward stabilization. # Pain management recommendations appreciated, will continue to monitor lithium levels given Ibuprofen can increase levels, currently level is low (0.25 ) # Patient has chronic and persistent mental illness he failed to maintain assertive community treatment services and would benefit from longer term care at a state facility. # EKG ordered QTc 405 # Collaboration with Telecom Network Manager Sandy Ruiz # GI service continuing to follow the patient # AST 68/ ALT 191 # Patient is unable to engage in composing a rational safety plan that does not include multiple delusions of pursuing multiple lawsuits with [place] representatives. # Continue lithium 300mg BID for mood # Received Invega 234mg long acting injection on 10/09/19 and 156mg on 10/13/19 without complications. 156mg Next due 11/06/19 # Patient accepted at [facility] awaiting transfer date Laboratory Tests 10/07/19 10/07/19 10/07/19 11:43 11:43 12:30 WBC 9.0 RBC 4.58 Hgb 15.1 Hct 43 MCV 94 MCH 33 H MCHC 35 RDW 13 Plt Count 309 MPV 8.1 Neut % (Auto) 71.3 Lymph % (Auto) 22.7 [place] % (Auto) 4.6 Eos % (Auto) 0.8 Baso % (Auto) 0.6 Absolute Neuts (auto) 6.4 Absolute Lymphs (auto) 2.0 Absolute Monos (auto) 0.4 Absolute Eos (auto) 0.1 Absolute Basos (auto) 0.1 Absolute Nucleated RBC 0.0 Nucleated RBC % 0.1 INR (Anticoag Therapy) Sodium 134 L Potassium 3.7 Chloride 99 L Carbon Dioxide 27 Anion Gap 8 BUN 23 Creatinine 1.06 Est GFR ( Amer) 93.6 Est GFR (Non-Af Amer) 77.4 BUN/Creatinine Ratio 21.7 H Glucose 187 H Hemoglobin A1c Calcium 9.3 Total Bilirubin 0.30 Direct Bilirubin Indirect Bilirubin AST 75 H ALT 212 H Alkaline Phosphatase 86 Ammonia Total Protein 7.5 Albumin 4.8 Globulin 2.7 Albumin/Globulin Ratio 1.8 Triglycerides Cholesterol LDL Cholesterol HDL Cholesterol TSH 1.58 Urine Color Straw Urine Appearance Clear Urine pH 6.0 Ur Specific [place] 1.009 L Urine Protein Negative Urine Ketones Negative Urine Blood 1+ A Urine Nitrate Negative Urine Bilirubin Negative Urine Urobilinogen Negative Ur Leukocyte Esterase Negative Urine WBC (Auto) Trace(0-5/hpf) Urine RBC (Auto) Trace(0-2/hpf) Urine Bacteria Absent Urine Glucose Negative Salicylates < 2.50 Urine Opiates Screen Acetaminophen < 15 Ur Barbiturates Screen Ur Phencyclidine Scrn Ur Amphetamines Screen U Benzodiazepines Scrn [place] Urine Cocaine Screen U Cannabinoids Screen Serum Alcohol < 10 10/07/19 10/09/19 10/09/19 12:30 06:32 06:32 WBC RBC Hgb Hct MCV MCH MCHC RDW Plt Count MPV Neut % (Auto) Lymph % (Auto) [place] % (Auto) Eos % (Auto) Baso % (Auto) Absolute Neuts (auto) Absolute Lymphs (auto) Absolute Monos (auto) Absolute Eos (auto) Absolute Basos (auto) Absolute Nucleated RBC Nucleated RBC % INR (Anticoag Therapy) Sodium Potassium Chloride Carbon Dioxide Anion Gap BUN Creatinine Est GFR ( Amer) Est GFR (Non-Af Amer) BUN/Creatinine Ratio Glucose Hemoglobin A1c 5.6 Calcium Total Bilirubin Direct Bilirubin Indirect Bilirubin AST ALT Alkaline Phosphatase Ammonia Total Protein Albumin Globulin Albumin/Globulin Ratio Triglycerides 145 Cholesterol 213 LDL Cholesterol 138 HDL Cholesterol 45.7 TSH Urine Color Urine Appearance Urine pH Ur Specific [place] Urine Protein Urine Ketones Urine Blood Urine Nitrate Urine Bilirubin Urine Urobilinogen Ur Leukocyte Esterase Urine WBC (Auto) Urine RBC (Auto) Urine Bacteria Urine Glucose Salicylates Urine Opiates Screen None detected Acetaminophen Ur Barbiturates Screen None detected Ur Phencyclidine Scrn None detected Ur Amphetamines Screen None detected U Benzodiazepines Scrn None detected [place] Urine Cocaine Screen None detected U Cannabinoids Screen None detected Serum Alcohol 10/13/19 10/13/19 10/13/19 07:50 07:50 07:50 WBC RBC Hgb Hct MCV MCH MCHC RDW Plt Count MPV Neut % (Auto) Lymph % (Auto) [place] % (Auto) Eos % (Auto) Baso % (Auto) Absolute Neuts (auto) Absolute Lymphs (auto) Absolute Monos (auto) Absolute Eos (auto) Absolute Basos (auto) Absolute Nucleated RBC Nucleated RBC % INR (Anticoag Therapy) 1.02 Sodium Potassium Chloride Carbon Dioxide Anion Gap BUN Creatinine Est GFR ( Amer) Est GFR (Non-Af Amer) BUN/Creatinine Ratio Glucose Hemoglobin A1c Calcium Total Bilirubin 0.40 Direct Bilirubin 0.10 Indirect Bilirubin 0.3 AST 60 H ALT 184 H Alkaline Phosphatase 83 Ammonia 51 Total Protein 7.5 Albumin 4.8 Globulin 2.7 Albumin/Globulin Ratio 1.8 Triglycerides Cholesterol LDL Cholesterol HDL Cholesterol TSH Urine Color Urine Appearance Urine pH Ur Specific [place] Urine Protein Urine Ketones Urine Blood Urine Nitrate Urine Bilirubin Urine Urobilinogen Ur Leukocyte Esterase Urine WBC (Auto) Urine RBC (Auto) Urine Bacteria Urine Glucose Salicylates Urine Opiates Screen Acetaminophen Ur Barbiturates Screen Ur Phencyclidine Scrn Ur Amphetamines Screen U Benzodiazepines Scrn [place] Urine Cocaine Screen U Cannabinoids Screen Serum Alcohol 10/14/19 10/17/19 10/17/19 06:29 19:37 19:37 WBC 9.6 RBC 4.64 Hgb 15.0 Hct 44 MCV 94 MCH 32 H MCHC 35 RDW 13 Plt Count 301 MPV 7.7 Neut % (Auto) Lymph % (Auto) [place] % (Auto) Eos % (Auto) Baso % (Auto) Absolute Neuts (auto) Absolute Lymphs (auto) Absolute Monos (auto) Absolute Eos (auto) Absolute Basos (auto) Absolute Nucleated RBC Nucleated RBC % INR (Anticoag Therapy) Sodium Potassium Chloride Carbon Dioxide Anion Gap BUN Creatinine Est GFR ( Amer) Est GFR (Non-Af Amer) BUN/Creatinine Ratio Glucose Hemoglobin A1c Calcium Total Bilirubin 0.30 Direct Bilirubin 0.10 Indirect Bilirubin 0.2 L AST 50 H ALT 166 H Alkaline Phosphatase 82 Ammonia Total Protein 7.3 Albumin 4.5 Globulin 2.8 Albumin/Globulin Ratio 1.6 Triglycerides Cholesterol LDL Cholesterol HDL Cholesterol TSH Urine Color Urine Appearance Urine pH Ur Specific [place] Urine Protein Urine Ketones Urine Blood Urine Nitrate Urine Bilirubin Urine Urobilinogen Ur Leukocyte Esterase Urine WBC (Auto) Urine RBC (Auto) Urine Bacteria Urine Glucose Salicylates Urine Opiates Screen Acetaminophen Ur Barbiturates Screen Ur Phencyclidine Scrn Ur Amphetamines Screen U Benzodiazepines Scrn [place] 0.25 L Urine Cocaine Screen U Cannabinoids Screen Serum Alcohol 10/17/19 10/18/19 19:37 08:05 WBC RBC Hgb Hct MCV MCH MCHC RDW Plt Count MPV Neut % (Auto) Lymph % (Auto) [place] % (Auto) Eos % (Auto) Baso % (Auto) Absolute Neuts (auto) Absolute Lymphs (auto) Absolute Monos (auto) Absolute Eos (auto) Absolute Basos (auto) Absolute Nucleated RBC Nucleated RBC % INR (Anticoag Therapy) 0.99 Sodium 136 Potassium 4.2 Chloride 104 Carbon Dioxide 25 Anion Gap 7 BUN 17 Creatinine 1.01 Est GFR ( Amer) 99.0 Est GFR (Non-Af Amer) 81.8 BUN/Creatinine Ratio 16.8 Glucose 107 H Hemoglobin A1c Calcium 9.5 Total Bilirubin 0.40 Direct Bilirubin Indirect Bilirubin AST 68 H ALT 191 H Alkaline Phosphatase 83 [place] Total Protein 7.6 Albumin 4.8 Globulin 2.8 Albumin/Globulin Ratio 1.7 Triglycerides Cholesterol LDL Cholesterol HDL Cholesterol TSH Urine Color Urine Appearance Urine pH Ur Specific [place] Urine Protein Urine Ketones Urine Blood Urine Nitrate Urine Bilirubin Urine Urobilinogen Ur Leukocyte Esterase Urine WBC (Auto) Urine RBC (Auto) Urine Bacteria Urine Glucose Salicylates Urine Opiates Screen Acetaminophen Ur Barbiturates Screen Ur Phencyclidine Scrn Ur Amphetamines Screen U Benzodiazepines Scrn [place] Urine Cocaine Screen U Cannabinoids Screen Serum Alcohol Continued Medication Management: Continue Outpt Medication Medications: Current Medications Al Hydrox/Mg Hydrox/Simethicone (Maalox Plus*) 30 ml PO Q4H PRN PRN Reason: INDIGESTION Albuterol (Ventolin Hfa Inhaler*) 2 puff INH Q4H PRN PRN Reason: SOB/WHEEZING Aspirin (Aspirin Ec Tab*) 81 mg PO DAILY [facility] Last Admin: 10/22/19 08:23 Dose: 81 mg Benztropine Mesylate (Cogentin Tab*) 2 mg PO ONCE PRN PRN Reason: .RESTLESSNESS Last Admin: 10/07/19 18:24 Dose: 2 mg Cetirizine HCl (Zyrtec*) 10 mg PO DAILY [facility] Last Admin: 10/22/19 08:24 Dose: 10 mg Ibuprofen (Motrin Tab*) 400 mg PO Q6H PRN PRN Reason: PAIN - MODERATE Last Admin: 10/14/19 20:55 Dose: 400 mg [place] Carbonate ([place] Carbonate Tab*) 300 mg PO BID [facility] Last Admin: 10/22/19 08:23 Dose: 300 mg Lorazepam (Ativan Tab(*)) 1 mg PO ONCE PRN PRN Reason: EXTREME RESTLESSNESS Methocarbamol (Robaxin Tab*) 750 mg PO TID PRN PRN Reason: LEG CRAMPS Last Admin: 10/15/19 20:11 Dose: 750 mg Mometasone Furoate/Formoterol Fumar (Dulera 100/5 Mdi*) 2 puff INH BID [facility] Last Admin: 10/22/19 08:25 Dose: 2 puff Multivitamins/Minerals (Theragran/Minerals Tab*) 1 tab PO DAILY [facility] Last Admin: 10/22/19 08:23 Dose: 1 tab Olanzapine (Zyprexa * Tab Odt) 10 mg PO Q6H PRN PRN Reason: AGITATION - Discharge Plan Discharge Plan: Consider Longer Term Tx
--- NOTE | 2019-10-22 16:04 | PN ---
BSU: Group Therapy Note - Service Type Service Type: [id number] Group Psychotherapy - Quiet, but participated pleasantly. Was attentive and polite. - Group Participation Patient Participating in Group: Yes Level of Group Participation: Attentive, Spontaneously Participate
[2019-10-23] MEDS: Aspirin EC TAB* 81 MG TAB.EC PO SCH (08:31)
[2019-10-23] MEDS: Mometasone/Formoter 100/5 MDI INH SCH ×2 (08:32→20:00)
[2019-10-23] MEDS: Cetirizine* 10 MG TAB PO SCH (08:32)
[2019-10-23] MEDS: Multivitamins/Minerals TAB PO SCH (08:32)
[2019-10-23] MEDS: Lithium Carbonate TAB* 300 MG PO SCH ×2 (08:32→19:59)
[2019-10-24] MEDS: Aspirin EC TAB* 81 MG TAB.EC PO SCH (08:14)
[2019-10-24] MEDS: Multivitamins/Minerals TAB PO SCH (08:14)
[2019-10-24] MEDS: Cetirizine* 10 MG TAB PO SCH (08:14)
[2019-10-24] MEDS: Lithium Carbonate TAB* 300 MG PO SCH ×2 (08:15→20:01)
[2019-10-24] MEDS: Mometasone/Formoter 100/5 MDI INH SCH ×2 (08:17→20:02)
[2019-10-25] MEDS: Al Hydrox/Mg Hydrox/Simet LIQ* 30 ML UDC PO PRN ×2 (00:20→22:26)
[2019-10-25] MEDS: Multivitamins/Minerals TAB PO SCH (08:51)
[2019-10-25] MEDS: Aspirin EC TAB* 81 MG TAB.EC PO SCH (08:51)
[2019-10-25] MEDS: Lithium Carbonate TAB* 300 MG PO SCH ×2 (08:51→20:03)
[2019-10-25] MEDS: Cetirizine* 10 MG TAB PO SCH (08:51)
[2019-10-25] MEDS: Mometasone/Formoter 100/5 MDI INH SCH ×2 (08:52→20:04)
[2019-10-26] MEDS: Cetirizine* 10 MG TAB PO SCH (08:12)
[2019-10-26] MEDS: Aspirin EC TAB* 81 MG TAB.EC PO SCH (08:12)
[2019-10-26] MEDS: Multivitamins/Minerals TAB PO SCH (08:13)
[2019-10-26] MEDS: Lithium Carbonate TAB* 300 MG PO SCH ×2 (08:13→20:11)
[2019-10-26] MEDS: Mometasone/Formoter 100/5 MDI INH SCH ×2 (08:15→20:11)
[2019-10-26 21:29] LABS: Hematocrit 43 % (42-52); Hemoglobin 14.9 g/dL (14.0-18.0); Mean Corpuscular HGB Conc 35 g/dL (31-36); Mean Corpuscular Hemoglobin 33 pg (27-31); Mean Corpuscular Volume 93 fL (80-94); Mean Platelet Volume 7.7 fL (7.4-10.4); Platelet Count 330 10^3/uL (150-450); Red Blood Count 4.57 10^6 /uL (4.18-5.48); Red Cell Distribution Width 13 % (10-15); White Blood Count 10.5 10^3/uL (3.5-10.8)
[2019-10-26 21:35] LABS: INR 1.07 (0.82-1.09)
[2019-10-26 21:47] LABS: Albumin 4.6 g/dL (3.2-5.2); Albumin/Globulin Ratio 1.6 (1-3); Globulin 2.9 g/dL (2-4); Indirect Bilirubin 0.3 mg/dL (0.3-1.0); Total Bilirubin 0.4 mg/dL (0.2-1.0); Total Protein 7.5 g/dL (6.4-8.9)
[2019-10-27] MEDS: Lithium Carbonate TAB* 300 MG PO SCH ×2 (08:06→20:07)
[2019-10-27] MEDS: Cetirizine* 10 MG TAB PO SCH (08:06)
[2019-10-27] MEDS: Multivitamins/Minerals TAB PO SCH (08:07)
[2019-10-27] MEDS: Aspirin EC TAB* 81 MG TAB.EC PO SCH (08:07)
[2019-10-27] MEDS: Mometasone/Formoter 100/5 MDI INH SCH ×2 (08:08→20:09)
--- NOTE | 2019-10-27 11:29 | PN ---
Subjective - Subjective Date of Service: 10/27/19 Service Type: 55459 Hosp care 35 min high complexity Subjective: Nursing Report: Patient was visible on unit, He is attending some group activities, taking medications. CC: "Why am I still here? " Patient was seen and evaluated today. The patient reported that if he is taking his medications why is he still here? He asked staff where he should put his boxers because as evidence, and stated that he masturbated in them. He reported having adequate appetite and sleep. The patient reports attending day groups. Patient reported that he is tolerating medications without side effects. Objective - General Observations Appearance: Disheveled Appears Stated Age: Yes Stature: WNL Posture: Slumped Eye Contact: Average Behavior/Activity: Peculiar - Interaction Observations Attitude Towards Examiner: Anxious Stated Mood: Irritable Affect: Restricted Speech Pattern/Tone: Normal Volume Thought Process: Loose Associations, Stanton Perception: WNL Thought Content: Preoccupation/Ruminations Hallucination Type: Denies Delusion Type: Thought Withdrawal - Cognitive Function Orientation: A&O x 4 Level of Consciousness: Awake - Medication Compliance Cooperative with Inpatient Medication Regimen: Yes - Group Participation Participates in Group Activities: Yes Assessment - Assessment Merits Inpatient Hospitalization: For Immediate Safety Clinical Impression: 39 year old Ukrainian male with history of schizoaffective disorder and multiple hospital admission came to the hospital by police with paranoid delusions and after a incident of threatening his father and was admitted to the [facility] at [facility]. Plan - Plan Treatment Plan: Name: GARY WARD Birthdate: 1980 [id number] Plan # Q30 minute observation, staff pass with computer # The patient requires psychiatric inpatient admission at this time to assure safety, receive treatment and work toward stabilization. # Patient has chronic and persistent mental illness he failed to maintain assertive community treatment services and would benefit from longer term care at a state facility. # EKG ordered QTc 405 # Collaboration with Plant Security Guard Sandy Ruiz # AST 55/ ALT 175 ammonia 65 # Patient is unable to engage in composing a rational safety plan that does not include multiple delusions of pursuing multiple lawsuits with [place] representatives. # Continue lithium 300mg BID for mood # Received Invega 234mg long acting injection on 10/09/19 and 156mg on 10/13/19 without complications. 156mg Next due 11/06/19 # Patient accepted at [facility] awaiting transfer date 10/26/19 10/26/19 10/26/19 21:20 21:20 21:20 WBC 10.5 RBC 4.57 Hgb 14.9 Hct 43 MCV 93 MCH 33 H MCHC 35 RDW 13 Plt Count 330 MPV 7.7 INR (Anticoag Therapy) Total Bilirubin 0.40 Direct Bilirubin 0.10 Indirect Bilirubin 0.3 GGT 61 AST 55 H ALT 175 H Alkaline Phosphatase 77 Ammonia 65 H Total Protein 7.5 Albumin 4.6 Globulin 2.9 Albumin/Globulin Ratio 1.6 10/26/19 21:20 WBC RBC Hgb Hct MCV MCH MCHC RDW Plt Count MPV INR (Anticoag Therapy) 1.07 Total Bilirubin Direct Bilirubin Indirect Bilirubin GGT AST ALT Alkaline Phosphatase Ammonia Total Protein Albumin Globulin Albumin/Globulin Ratio Continued Medication Management: Continue Outpt Medication Medications: Current Medications Al Hydrox/Mg Hydrox/Simethicone (Maalox Plus*) 30 ml PO Q4H PRN PRN Reason: INDIGESTION Last Admin: 10/25/19 22:26 Dose: 30 ml Albuterol (Ventolin Hfa Inhaler*) 2 puff INH Q4H PRN PRN Reason: SOB/WHEEZING Aspirin (Aspirin Ec Tab*) 81 mg PO DAILY [facility] Last Admin: 10/27/19 08:07 Dose: 81 mg Benztropine Mesylate (Cogentin Tab*) 2 mg PO ONCE PRN PRN Reason: .RESTLESSNESS Last Admin: 10/07/19 18:24 Dose: 2 mg Cetirizine HCl (Zyrtec*) 10 mg PO DAILY [facility] Last Admin: 10/27/19 08:06 Dose: 10 mg Ibuprofen (Motrin Tab*) 400 mg PO Q6H PRN PRN Reason: PAIN - MODERATE Last Admin: 10/14/19 20:55 Dose: 400 mg [place] Carbonate ([place] Carbonate Tab*) 300 mg PO BID [facility] Last Admin: 10/27/19 08:06 Dose: 300 mg Lorazepam (Ativan Tab(*)) 1 mg PO ONCE PRN PRN Reason: EXTREME RESTLESSNESS Methocarbamol (Robaxin Tab*) 750 mg PO TID PRN PRN Reason: LEG CRAMPS Last Admin: 10/15/19 20:11 Dose: 750 mg Mometasone Furoate/Formoterol Fumar (Dulera 100/5 Mdi*) 2 puff INH BID [facility] Last Admin: 10/27/19 08:08 Dose: 2 puff Multivitamins/Minerals (Theragran/Minerals Tab*) 1 tab PO DAILY [facility] Last Admin: 10/27/19 08:07 Dose: 1 tab Olanzapine (Zyprexa * Tab Odt) 10 mg PO Q6H PRN PRN Reason: AGITATION Last Admin: 10/25/19 00:20 Dose: 10 mg - Discharge Plan Discharge Plan: Consider Longer Term Tx
[2019-10-28] MEDS: Aspirin EC TAB* 81 MG TAB.EC PO SCH (08:19)
[2019-10-28] MEDS: Lithium Carbonate TAB* 300 MG PO SCH ×2 (08:19→20:01)
[2019-10-28] MEDS: Cetirizine* 10 MG TAB PO SCH (08:19)
[2019-10-28] MEDS: Multivitamins/Minerals TAB PO SCH (08:19)
[2019-10-28] MEDS: Mometasone/Formoter 100/5 MDI INH SCH ×2 (08:20→20:02)
[2019-10-29] MEDS: Aspirin EC TAB* 81 MG TAB.EC PO SCH (08:15)
[2019-10-29] MEDS: Lithium Carbonate TAB* 300 MG PO SCH (08:15)
[2019-10-29] MEDS: Cetirizine* 10 MG TAB PO SCH (08:15)
[2019-10-29] MEDS: Multivitamins/Minerals TAB PO SCH (08:15)
[2019-10-29] MEDS: Mometasone/Formoter 100/5 MDI INH SCH (08:15)
--- NOTE | 2019-10-29 08:30 | PN ---
Subjective - Subjective Date of Service: 10/29/19 Service Type: 71460 Hosp care 35 min high complexity Assessment - Assessment Clinical Impression: 39 year old Turkmen male with history of schizoaffective disorder and multiple hospital admission came to the hospital by police with paranoid delusions and after a incident of threatening his father and was admitted to the [facility] at [facility]. Plan - Plan Treatment Plan: Name: GARY WARD Birthdate: 1980 [id number] Plan # Q30 minute observation, staff pass with computer # The patient requires psychiatric inpatient admission at this time to assure safety, receive treatment and work toward stabilization. # Patient has chronic and persistent mental illness he failed to maintain assertive community treatment services and would benefit from longer term care at a state facility. # EKG ordered QTc 405 # Collaboration with Internet Sales Consultant Sandy Ruiz # AST 55/ ALT 175 ammonia 65 # Patient is unable to engage in composing a rational safety plan that does not include multiple delusions of pursuing multiple lawsuits with [place] representatives. # Continue lithium 300mg BID for mood # Received Invega 234mg long acting injection on 10/09/19 and 156mg on 10/13/19 without complications. 156mg Next due 11/06/19 # Patient accepted at [facility] awaiting transfer date 10/26/19 10/26/19 10/26/19 21:20 21:20 21:20 WBC 10.5 RBC 4.57 Hgb 14.9 Hct 43 MCV 93 MCH 33 H MCHC 35 RDW 13 Plt Count 330 MPV 7.7 INR (Anticoag Therapy) Total Bilirubin 0.40 Direct Bilirubin 0.10 Indirect Bilirubin 0.3 GGT 61 AST 55 H ALT 175 H Alkaline Phosphatase 77 Ammonia 65 H Total Protein 7.5 Albumin 4.6 Globulin 2.9 Albumin/Globulin Ratio 1.6 10/26/19 21:20 WBC RBC Hgb Hct MCV MCH MCHC RDW Plt Count MPV INR (Anticoag Therapy) 1.07 Total Bilirubin Direct Bilirubin Indirect Bilirubin GGT AST ALT Alkaline Phosphatase Ammonia Total Protein Albumin Globulin Albumin/Globulin Ratio Medications: Current Medications Al Hydrox/Mg Hydrox/Simethicone (Maalox Plus*) 30 ml PO Q4H PRN PRN Reason: INDIGESTION Last Admin: 10/25/19 22:26 Dose: 30 ml Albuterol (Ventolin Hfa Inhaler*) 2 puff INH Q4H PRN PRN Reason: SOB/WHEEZING Aspirin (Aspirin Ec Tab*) 81 mg PO DAILY [facility] Last Admin: 10/29/19 08:15 Dose: 81 mg Benztropine Mesylate (Cogentin Tab*) 2 mg PO ONCE PRN PRN Reason: .RESTLESSNESS Last Admin: 10/07/19 18:24 Dose: 2 mg Cetirizine HCl (Zyrtec*) 10 mg PO DAILY [facility] Last Admin: 10/29/19 08:15 Dose: 10 mg Ibuprofen (Motrin Tab*) 400 mg PO Q6H PRN PRN Reason: PAIN - MODERATE Last Admin: 10/14/19 20:55 Dose: 400 mg [place] Carbonate ([place] Carbonate Tab*) 300 mg PO BID [facility] Last Admin: 10/29/19 08:15 Dose: 300 mg Lorazepam (Ativan Tab(*)) 1 mg PO ONCE PRN PRN Reason: EXTREME RESTLESSNESS Methocarbamol (Robaxin Tab*) 750 mg PO TID PRN PRN Reason: LEG CRAMPS Last Admin: 10/15/19 20:11 Dose: 750 mg Mometasone Furoate/Formoterol Fumar (Dulera 100/5 Mdi*) 2 puff INH BID [facility] Last Admin: 10/29/19 08:15 Dose: 2 puff Multivitamins/Minerals (Theragran/Minerals Tab*) 1 tab PO DAILY [facility] Last Admin: 10/29/19 08:15 Dose: 1 tab Olanzapine (Zyprexa * Tab Odt) 10 mg PO Q6H PRN PRN Reason: AGITATION Last Admin: 10/25/19 00:20 Dose: 10 mg
[2019-10-29 08:52] VITALS: BP 132/78
--- NOTE | 2019-10-29 10:19 | DS ---
Subjective - Subjective Service Types: [address] [facility] Day Mgmt complex over 30 min Discharge Date: 10/29/19 Subjective: CC: " What am I going to do in [place]?" The patient was seen and evaluated before discharge today. The patient reported having adequate appetite and sleep. The patient reported participating in some of the day groups. Per nursing no behavioral issues or overnight events reported. Patient reported tolerating medications without side effects. Justification for admission: Immediate Safety. CC " You are incompetent! " The patient was brought to [facility] by police after an altercation with his father. He was walking around naked and becoming aggressive with his mother and father. Upon arriving to the [facility] the patient was agitated and required the use of zyprexa , abilify and Thorazine in order to maintain the safety of himself and others. The patient stated that he has 3 open cases about immigration, mental health department , and air pollution and contacted senators of [place] and is upset because he filed grievances and did not hear anything back. He believes that he is the product of mistaken identity and that he only needs to follow the [place] constitution. He reported that he has no mental illness and that everyone here are idiots. He stated that other doctors disagree with him taking medications because they are toxic and that he " pees them out because they are toxins and I will aly you." He believes that he is sick from air pollution and that is causing him to have increased liver enzymes. Since being discharged in January, he has not been medication compliant and has not followed AOT and has refused to work with the ACT team. Bipolar Patient has symptoms of yvonne such as having many ideas at once, increased talkativeness where no one can interrupt. He has a increase in intensity in goal directed activities and the decreased need to sleep for days. Psychosis He believes that others are out to get him, and that the government is controlling him. He reported feeling that people are spying on him and trying to read his thoughts. Depression Denied feeling depressed. Denied having diminished interests which were found to be enjoyable in the past. Denied having crying spells , feeling empty inside , feelings of hopelessness , and worthlessness. Denied unintentional weight loss and appetite. Denied interruption of sleep , or feeling tired throughout the day. Denied loss of energy or lack of motivation to complete tasks. Denied overwhelming feelings of guilt or decreased concentration. Denied recurrent thoughts of . Denied thoughts that they would be better off . Anxiety Denied having symptoms of anxiety such as having times where heart feels that it is beating out of chest , sweaty palms, or shallow breathing. Denied having uncomfortable or intrusive thoughts. Denied feeling restless, high strung, or worrying too much most of the time. Phobias: Patient denied having excessive fear of a particular thing or situation. Eating disorders: Patient denied having excessive eating habits or feelings of guilt after eating. Denied repeated episodes of self induced vomiting after eating. PTSD Denied flashbacks, nightmares and avoidance of a prior traumatic event. PAST PSYCHIATRIC HISTORY: Prior Diagnosis : Schizoaffective Disorder Bipolar type. History of past Psychiatric Hospitalizations: 2 prior admission to [facility] in 2013 and 2014 , Over 7 prior hospitalizations since 2009. His last hospital [facility] admission was in January 2019. History of past suicide/homicide attempts : Denied past suicide attempts, denied repeated self injurious behavior. He has a history of aggressive behavior. Outpatient follow-up: [facility] ACT team under AOT since last admission in January 2019. He originally started with the ACT team in 2014. and before that time [facility] Medications: Past trials of medications include abilify , zoloft, haldol and haldol decanoate, paxil, cogentin geodon, Trileptal. Aristada long acting injection initio 675mg +Aristada 1064mg last on 01/22/19 Guardianship: None. FAMILY HISTORY: - Suicide: Denied family history of suicide. - Mental illness: Mother has schizophrenia - Substance abuse: Denied substance abuse among family members. SUBSTANCE ABUSE HISTORY: - EtOH: Denied recent use. No associated legal issues, blackouts, seizures, DTs or past hospitalizations due to alcohol. - Tobacco: Denied - Cannabis: Denied - Heroin: Denied - Cocaine: Denied - Substance abuse treatment: Denied past substance abuse treatment SOCIAL HISTORY: - Denied a history of childhood physical and or sexual abuse Born in [place] and moved [place] the [place] at age 11. He currently is living with both of his parents in [place]. - Education: Finished College No history of special education. Martín graduated from [employer] after transferring there from [employer] and completed a degree in business. 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 He did have a committed relationship for about 6 months in 2003. He currently has no friends in the area. - Relationship: Single and has no children. - service history: Denied PAST MEDICAL HISTORY: Elevated liver enzymes. Denied heart disease, diabetes, cancer and/ or other medical conditions. - Allergies: Denied drug or other allergies. Physical Exam: Please see ED note Mental Status Exam on Admission APPEARANCE : 39 year old who appears stated age. Patient appears to have poor hygiene and grooming. BEHAVIOR: Uncooperative, irritable EYE CONTACT: intense PSYCHOMOTOR ACTIVITY: psychomotor agitation MOVEMENTS: No abnormal movements observed. Outward extension did not show intention or resting tremor SPEECH : Loud and rapid MOOD : "Mad " AFFECT : Irritable, angry, agitated, Range is restricted Mood Incongruent THOUGHT PROCESS: Flight of ideas, loose associations , tangential THOUGHT CONTENT: Paranoid delusions PERCEPTION: Auditory hallucinations commanding type . Patient appears to be responding to internal cues. SUICIDALITY Denied suicidal ideation, intent or plan. HOMICIDALITY Denied homicidal ideation, intent or plan. Insight/judgment: Poor insight and judgment ORIENTATION: Oriented to self, location, and time. Diagnosis on Admission: Schizoaffective disorder, bipolar type. Diagnosis on Discharge: Schizoaffective disorder, bipolar type. Condition at the time of discharge: At the time of discharge the patient showed improvement of sleep and appetite. The patient was unable to compose a reasonable and rational discharge plan that did not contain delusions. The patients affective symptoms were treated and responded well to treatment. The patient took medication as prescribed. The patient denied side effects of medication and objective signs of side effects were not evident. Therapy resources were offered to the patient. Arrangements were made for the patient to be transferred to [facility] for longer term stabilization. Objective - General Observations Appearance: Unkempt Appears Stated Age: Yes Stature: WNL Posture: Slumped Eye Contact: Average Behavior/Activity: Peculiar - Interaction Observations Attitude Towards Examiner: Defensive Stated Mood: Dysphoric Affect: Restricted Speech Pattern/Tone: Normal Volume Thought Process: Loose Associations Perception: WNL Thought Content: Paranoid Thought Process: Lethality: Paranoid Ideation Hallucination Type: Denies Delusion Type: Thought Withdrawal - Cognitive Function Orientation: A&O x 4 Level of Consciousness: Awake Ability to Make Reasonable Decisions: Moderately Impaired - Medication Compliance Cooperative with Inpatient Medication Regimen: Yes - Group Participation Participates in Group Activities: Yes Treatment Course & Assessment Clinical Course & Impression: Hospital course part A: 39 year old [place] male with history of schizoaffective disorder and multiple hospital admission came to the hospital by police with paranoid delusions and after a incident of threatening his father and was admitted to the [facility] at [facility]. Hospital course part B: Labs ordered included CBC, CMP, UDS, TSH, HBA1c, TSH, Toxicology screen, Urine analysis, and lipid profile. Labs were reviewed and vital signs were monitored during the course of admission. EKG ordered and did not show abnormal QTc prolongation. The patient was on 2 anti-psychotic medications in the process of titrating the patient to monotherapy. The patient was admitted to the adult behavioral unit and placed on 15 minute check for safety. At a later time the patient was on Q30 minute observation and staff pass privileges and computer access. With those limits being extended , the patient was safe on all checks and there were no occurrence of behavioral incidents. The patient did well on the unit and went to groups. The patient had adequate sleep and a regular appetite. The patient tolerated medication changes without side effects. Group therapy and services were offered. The risks , benefits, and alternative treatment options were discussed as well as of the risks of refusing treatment. Treatment associated risks discussed with the patient. After this discussion the patient made an acknowledgement of this understanding. HBA1c, glucose, and lipid panel was ordered to monitor metabolic status. Monitoring for metabolic changes was reviewed and it was emphasized to the patient to be continued to be monitored upon discharge. The patient was informed not to abruptly stop or start new medications before consulting with a medical professional. The patient showed improvements since the time of admission which include: a broader range of affect, regular sleep and a decrease in overt positive psychotic symptoms. The patient continued to have gross delusions that interfered with composing a safe discharge plan, and required further stabilization at [facility]. Before admission, the patient was living with his parents. His mother seemed to encourage his delusions due to what seems to be from her own mental health issues. The patient/ family instructed to immediately call 911 should any safety concerns arise. The patients mother came for a family meeting and also expressed shared delusions with the patient. AIMS was performed and insignificant for involuntary movement disorders. The patient was advised of the 24 hour / 7 days a week availability of the emergency room and to call 911 in the event of an emergency such as being suicidal and/ or homicidal. The patient was informed of the contact information for [facility] Behavioral Services Unit, Suicide Prevention and Crisis Services, National Suicide Prevention Lifeline, [facility], Alcoholics Anonymous, and [facility]. Chelyan level was 0.25 and they were advised about the importance of monitoring levels and the interactions and risks of lithium. Medications started included lithium 300mg BID Patient received Invega 234mg long acting injection on 10/09/19 and 156mg on Sunday10/13/19 without complications. 156mg Next due 11/06/[address] before discharge. They were notified of the resources available in the event these situations arise and confirmed that the patient has no access to firearms or stockpiles of medications. Consults included to GI for chronic elevated liver enzymes and the patient was seen and evaluated and was recommended to be seen in the outpatient setting. 10/17 AST68 ALT 191, 10/26/19 AST 55/ ALT 175 ammonia 65 The patient was seen by pain management recommendations for right leg pain. Recommendation for Ibuprofen was made . As this can increase lithium levels, his levels were monitored and his most recent level was 0.25. Patient was also placed on methocarbamol 750mg TID PRN. PT consult for radiating right leg pain was made. His pain was significantly reduced over the course of hospitalization. The patient will be transferred to [facility]. Dr. Pa was contacted at the accepting facility before the transfer took place. Patient plans to follow up at [facility] / ACT Patient informed of the importance of follow up care and plans to make an appointment to see Dr. To and his PCP Risk factors were mitigated by establishing the patients baseline with close contacts and arranging a family meeting. Implemented precautionary safety measures by confirming no stockpiles of medications and no access to firearms, provided mental health treatment, treatment of psychiatric symptoms, as well as provided a supportive care environment and therapy resources during the course of hospitalization. A tailored treatment plan was devised to provide to assistance with medication compliance. Risk factors: Male, , single, history of a persistent mental health condition, history of non compliance to treatment, recent hospitalization. Family history of mental illness. Protective factors: Patient has not made a prior suicide attempt. No history of service. Currently no feelings of hopelessness, not in an occupation of social isolation , doesnt have multiple medical conditions, no family history of suicide, doesn t have access to firearms. No current substance abuse. No current alcohol abuse. Not an anniversary of a loss of a loved one. The patient did not have a recent stressful life event. Not incarcerated. Not middle or older age. No history of self-injurious behavior. The patient did not have a cultural belief that supported suicide. Patient did not experience a loss of someone close that recently by suicide. Sodium 136 mmol/L (135-145) 10/18/19 08:05 Potassium 4.2 mmol/L (3.5-5.0) 10/18/19 08:05 BUN 17 mg/dL (6-24) 10/18/19 08:05 Creatinine 1.01 mg/dL (0.67-1.17) 10/18/19 08:05 Hemoglobin A1c 5.6 % (4.0-5.6) 10/09/19 06:32 Calcium 9.5 mg/dL (8.6-10.3) 10/18/19 08:05 AST 55 U/L (13-39) H 10/26/19 21:20 ALT 175 U/L (7-52) H 10/26/19 21:20 Triglycerides 145 mg/dL 10/09/19 06:32 Cholesterol 213 mg/dL 10/09/19 06:32 LDL Cholesterol 138 mg/dL 10/09/19 06:32 Merits Inpatient Hospitalization: Yes Clear for Discharge: Other - Transfer to [facility] Discharge Planning - Discharge Planning Discharge Plan: Consider Longer Term Tx Outpatient Program: ACT/ TCM Recommendations for Continuing Care: Medication Management, Routine Metabolic Monitoring, Primary Care Followup Medications: Current Medications Al Hydrox/Mg Hydrox/Simethicone (Maalox Plus*) 30 ml PO Q4H PRN PRN Reason: INDIGESTION Last Admin: 10/25/19 22:26 Dose: 30 ml Albuterol (Ventolin Hfa Inhaler*) 2 puff INH Q4H PRN PRN Reason: SOB/WHEEZING Aspirin (Aspirin Ec Tab*) 81 mg PO DAILY [facility] Last Admin: 10/29/19 08:15 Dose: 81 mg Benztropine Mesylate (Cogentin Tab*) 2 mg PO ONCE PRN PRN Reason: .RESTLESSNESS Last Admin: 10/07/19 18:24 Dose: 2 mg Cetirizine HCl (Zyrtec*) 10 mg PO DAILY [facility] Last Admin: 10/29/19 08:15 Dose: 10 mg Ibuprofen (Motrin Tab*) 400 mg PO Q6H PRN PRN Reason: PAIN - MODERATE Last Admin: 10/14/19 20:55 Dose: 400 mg Chelyan Carbonate (Chelyan Carbonate Tab*) 300 mg PO BID [facility] Last Admin: 10/29/19 08:15 Dose: 300 mg Lorazepam (Ativan Tab(*)) 1 mg PO ONCE PRN PRN Reason: EXTREME RESTLESSNESS Methocarbamol (Robaxin Tab*) 750 mg PO TID PRN PRN Reason: LEG CRAMPS Last Admin: 10/15/19 20:11 Dose: 750 mg Mometasone Furoate/Formoterol Fumar (Dulera 100/5 Mdi*) 2 puff INH BID [facility] Last Admin: 10/29/19 08:15 Dose: 2 puff Multivitamins/Minerals (Theragran/Minerals Tab*) 1 tab PO DAILY [facility] Last Admin: 10/29/19 08:15 Dose: 1 tab Olanzapine (Zyprexa * Tab Odt) 10 mg PO Q6H PRN PRN Reason: AGITATION Last Admin: 10/25/19 00:20 Dose: 10 mg Discharge Planning: Prescriptions provided for discharge [] Yes [x] No Follow up care details as per social work arrangements. Patient response to discharge plan: [x] eager for discharge [] agreeable with discharge plan [] ambivalent about discharge [] disagrees with discharge today
== END 2019-10-29 12:35 | disposition short-term general hospital (02) | DRG 885 ==
LOC: ED 11:21 → BSU 13:46
PROVIDERS: ADMIT Psychiatry & Neurology Psychiatry; ATTEND Psychiatry & Neurology Psychiatry
DX: F25.0 Schizoaffective disorder, bipolar type (principal); K75.4 Autoimmune hepatitis; M76.9 Unspecified enthesopathy, lower limb, excluding foot; R94.5 Abnormal results of liver function studies; K21.9 Gastro-esophageal reflux disease without esophagitis; Z79.899 Other long term (current) drug therapy; Z79.82 Long term (current) use of aspirin; Z81.8 Family history of other mental and behavioral disorders; Z91.040 Latex allergy status
CPT/HCPCS: 36415; 80053; 80061; 80076; 80178; 80307; 80320; 80329; 81003; 81015; 82140; 82977; 83036; 84443; 85025; 85027; 85610; 87086; 90853; 93005; 99222; 99233; 99238; 99284; A9270-GY; G0480

== ENCOUNTER 2023-09-06 13:53 | Inpatient (IN) ==
[2023-09-06 15:07] LABS: ABS Basophils 0.1 10^3/uL (0.0-0.1); ABS Eosinophils 0.1 10^3/uL (0.0-0.5); ABS Lymphocytes 1.6 10^3/uL (1.0-4.8); ABS Monocytes 0.4 10^3/uL (0.0-1.1); ABS Neutrophils 6.7 10^3/uL (1.5-7.6); ABS Nucleated RBC 0.01 10^3/ul; Hematocrit 41.2 % (38-53); Hemoglobin 14.2 g/dL (13.2-16.3); Lymphocyte % 17.9 %; Mean Corpuscular Hemoglobin 32.3 pg (27-33); Mean Corpuscular Hgb Conc 34.6 g/dL (31-36); Mean Corpuscular Volume 93.6 fL (80-97); Mean Platelet Volume 8.3 fL (7.5-11.2); Nucleated Red Blood Cells % 0.1 %/100WBC (0.0-0.8); Platelet Count 325 10^3/uL (150-450); Red Cell Distribution Width 13.3 % (12-17); White Blood Count 8.8 10^3/uL (3.6-10.2)
[2023-09-06 15:20] LABS: Urine Appearance Clear; Urine Bilirubin Negative (Negative); Urine Blood 1+ (Negative); Urine Color Yellow; Urine Glucose Negative (Negative); Urine Ketones Negative (Negative); Urine Nitrite Negative (Negative); Urine Protein 1+(30 mg/dL) (Negative); Urine Specific Gravity 1.013 (1.002-1.030); Urine Urobilinogen Negative (Negative)
[2023-09-06 15:31] LABS: ALT 24 U/L (7-52); AST 23 U/L (13-39); Albumin/Globulin Ratio 1.6 (1-3); Alkaline Phosphatase 79 U/L (35-149); Anion Gap 9 mmol/L (2-16); Blood Urea Nitrogen 17 mg/dL (6-24); CO2 Carbon Dioxide 27 mmol/L (22-32); Calcium 9.6 mg/dL (8.6-10.3); Chloride 99 mmol/L (101-111); Creatinine, Serum 0.96 mg/dL (0.67-1.17); Globulin 3.1 g/dL (2-4); Glucose 195 mg/dL (70-100); Potassium 3.5 mmol/L (3.5-5.0); Sodium 135 mmol/L (135-145); Total Bilirubin 0.2 mg/dL (0.2-1.0); Total Protein 8.1 g/dL (6.4-8.9)
[2023-09-06 15:34] LABS: Urine Bacteria Absent (Absent); Urine Red Blood Cell Trace(0-2/hpf) (Absent); Urine White Blood Cell Absent (Absent)
[2023-09-06 15:42] LABS: Urine Benzodiazepine Screen None Detected (None Detect); Urine Cannabinoids Screen None Detected (None Detect); Urine Opiates Screen None Detected (None Detect)
[2023-09-06 15:55] LABS: Acetaminophen < 15 mcg/mL; Alcohol, S < 13 mg/dL (<13); Salicylate < 2.50 mg/dL (<30)
[2023-09-06 16:10] LABS: TSH Ultra Thyroid Stim Horm 2.12 mcIU/mL (0.34-5.60)
[2023-09-06] MEDS ORDERED: Al Hydrox/Mg Hydrox/Simet LIQ 30 ML UDC PO PRN (18:45)
[2023-09-06] MEDS: Haloperidol 5 mg/ml SDV IV/IM 5 MG/ML AMP IM ONE (19:26)
[2023-09-07] MEDS: Vitamin THERAPEUTIC TAB PO SCH (09:50)
[2023-09-08 08:07] LABS: HDL Cholesterol 53.7 mg/dL
[2023-09-14] MEDS: Lithium Carbonate ER 450mg TAB PO SCH (19:59)
[2023-09-20] MEDS: Paliperidone SUSTENNA 234 MG/1.5 ML IM ONE (14:20)
[2023-09-24 08:27] VITALS: BP 148/62
[2023-09-24] MEDS: Paliperidone SUSTENNA 156 MG/1 ML IM ONE (11:53)
== END 2023-09-24 15:48 | disposition home or self-care (01) | DRG 885 ==
LOC: ED 13:53 → EDHOLD 18:45 → BSU 19:51
PROVIDERS: ADMIT Psychiatry & Neurology Psychiatry; ATTEND Psychiatry & Neurology Psychiatry